=== PATIENT | male | born 1965 | race Hispanic/Latino ===

== ENCOUNTER 2018-03-17 15:48 | Observation (INO) | payer BC, SELFPAY ==
[2018-03-17] MEDS ORDERED: Mag-Al 1200 mg/1200 mg/30 ML UDCUP ONE (16:34)
[2018-03-17] MEDS ORDERED: Lidocaine Viscous Sol 2% 15 ml UD Cup ONE (16:34)
[2018-03-17 17:03] LABS: Bilirubin Negative (Negative); Blood, Urine Small (Negative); Clarity CLEAR (Clear); Glucose, Urine (Dipstick) 100 mg/dL (Negative); Leukocyte Negative (Negative); Nitrite Negative (Negative); Protein, Urine (Dipstick) 100 mg/dL (Neg-Trace); Specific Gravity, Urine 1.011 (1.002-1.036); Urobilinogen 0.2 mg/dL (0.2-1.0)
[2018-03-17 17:04] LABS: Bacteria/HPF None Seen HPF (None Seen); Hyaline Casts/LPF 0-3 HYALINE CAST LPF (0-3 Hyaline); Squamous Epithelial None Seen HPF (0-3); WBC/HPF None Seen HPF (0-3)
[2018-03-17 17:09] LABS: #Basophils 0.1 thou/uL (0.0-0.2); #Eosinphils 0.2 thou/uL (0.0-0.7); #Lymphocytes 2.1 thou/uL (1.20-3.40); #Monocytes 0.5 thou/uL (0.11-0.59); #Neutrophils 4.2 thou/uL (1.40-6.50); %Eosinophils 3.3 % (0.0-10.0); %Neutrophils 59.7 % (42.0-75.0); Hemoglobin 14.4 g/dL (14.0-18.0); Mean Corpuscular HGB CONC 34.7 g/dL (32.0-36.0); Mean Corpuscular Hemoglobin 31.3 pg (27.0-31.0); Mean Corpuscular Volume 90.3 fl (80.0-94.0); Mean Platelet Volume 7.5 fL (7.4-10.4); Platelet Count 166 thou/uL (130-400); RBC Distribution Width 12.5 % (11.5-14.5); White Blood Cell (WBC) Count 7.1 thou/uL (4.8-10.8)
[2018-03-17 17:35] LABS: ALT (SGPT) 17 U/L (8-55); AST (SGOT) 18 U/L (5-34); Albumin 3.5 g/dL (3.5-5.0); Alkaline Phosphatase 130 U/L (40-150); Anion Gap 9 mmol/L (10-20); BUN (Urea Nitrogen) 19 mg/dL (8.4-25.7); Bilirubin, Total 0.4 mg/dL (0.2-1.2); Calc. Creatinine Clearance 0 mL/min (70-130); Calcium 9.3 mg/dL (7.8-10.44); Carbon Dioxide 30 mmol/L (22-29); Chloride 104 mmol/L (98-107); Estimated GFR-MDRD 63; Globulin 3.3 g/dL (2.4-3.5); Glucose 133 mg/dL (70-105); Lipase 14 U/L (8-78); Potassium 4.3 mmol/L (3.5-5.1); Protein, Total 6.8 g/dL (6.0-8.3); Sodium 139 mmol/L (136-145)
[2018-03-17] MEDS ORDERED: Dicyclomine 20 MG TAB ONE (17:38)
[2018-03-17] MEDS ORDERED: Ondansetron ODT 4 MG TAB ONE (17:38)
[2018-03-17] MEDS ORDERED: cloNIDine 0.1 MG TAB ONE (18:01)
[2018-03-17] MEDS ORDERED: diphenhydrAMINE 50 MG/ML VIAL ONE (19:25)
[2018-03-17] MEDS ORDERED: Metoclopramide HCl 10 MG/2 ML VIAL ONE (19:25)
[2018-03-17 19:39] LABS: CKMB 1.4 ng/mL (0-6.6); Troponin I Less than 0.010 ng/mL (< 0.028)
[2018-03-17] MEDS ORDERED: Gabapentin 300 MG CAP PO SCH (20:45)
[2018-03-17] MEDS ORDERED: hydrALAZINE 20 MG/ML VIAL ONE (20:56)
[2018-03-17] MEDS ORDERED: traMADol HCl 50 MG TAB ONE (21:21)
[2018-03-17] MEDS ORDERED: Ondansetron ODT 4 MG TAB SL PRN (22:24)
[2018-03-17] MEDS ORDERED: Ondansetron HCl/PF 4 MG/2 ML Vial IVP PRN (22:24)
[2018-03-17] MEDS ORDERED: hydrALAZINE 20 MG/ML VIAL SLOW IVP PRN (22:24)
[2018-03-17] MEDS ORDERED: Acetaminophen 325 MG TAB PO PRN (22:24)
[2018-03-17 22:54] VITALS: BMI 26.6
[2018-03-18] MEDS ORDERED: Dextrose 50% Abboject 50 ML SYRINGE SLOW IVP PRN (01:16)
[2018-03-18] MEDS ORDERED: HYDROcodone/Acetaminophen 5/325 mg Tablet PO PRN (01:16)
[2018-03-18] MEDS ORDERED: Calcium Carbonate 500 MG ChewTAB PO PRN (01:16)
[2018-03-18] MEDS ORDERED: Ondansetron HCl/PF 4 MG/2 ML Vial IVP PRN (01:16)
[2018-03-18] MEDS ORDERED: Pantoprazole 40 MG VIAL IVP SCH (01:16)
[2018-03-18] MEDS ORDERED: Dextrose 5% in Water 1,000 ML IV PRN (01:16)
[2018-03-18] MEDS ORDERED: Ondansetron ODT 4 MG TAB PO PRN (01:16)
[2018-03-18] MEDS ORDERED: HumaLOG 300 UNITS/3 ML VIAL SC PRN (01:16)
[2018-03-18] MEDS ORDERED: Albuterol Sulfate 2.5 mg/0.5 ml Neb NEB PRN (01:36)
[2018-03-18] MEDS: Sodium Chloride 0.9% 1,000 ML IV SCH ×4 (02:30→22:50)
[2018-03-18 04:53] LABS: #Basophils 0.1 thou/uL (0.0-0.2); #Eosinphils 0.2 thou/uL (0.0-0.7); #Lymphocytes 2.4 thou/uL (1.20-3.40); #Monocytes 0.4 thou/uL (0.11-0.59); #Neutrophils 2.5 thou/uL (1.40-6.50); %Eosinophils 3.9 % (0.0-10.0); %Monocytes 6.5 % (0.0-10.0); %Neutrophils 44.5 % (42.0-75.0); Hemoglobin 11.8 g/dL (14.0-18.0); Mean Corpuscular HGB CONC 34.8 g/dL (32.0-36.0); Mean Corpuscular Hemoglobin 31.6 pg (27.0-31.0); Mean Corpuscular Volume 90.9 fl (80.0-94.0); Mean Platelet Volume 7.6 fL (7.4-10.4); Platelet Count 145 thou/uL (130-400); RBC Distribution Width 12.5 % (11.5-14.5); Red Blood Cell (RBC) Count 3.75 mill/uL (4.70-6.10); White Blood Cell (WBC) Count 5.6 thou/uL (4.8-10.8)
[2018-03-18 04:59] LABS: Anion Gap 9 mmol/L (10-20); BUN (Urea Nitrogen) 16 mg/dL (8.4-25.7); Calc. Creatinine Clearance 88 mL/min (70-130); Calcium 8.2 mg/dL (7.8-10.44); Carbon Dioxide 28 mmol/L (22-29); Chloride 104 mmol/L (98-107); Estimated GFR-MDRD 75; Glucose 223 mg/dL (70-105); Potassium 3.8 mmol/L (3.5-5.1); Sodium 137 mmol/L (136-145)
[2018-03-18] MEDS: Aspirin 81 mg Enteric Coated Tablet PO SCH (08:58)
[2018-03-18] MEDS: Gabapentin 300 MG CAP PO SCH (08:59)
[2018-03-18] MEDS: Pantoprazole 40 MG VIAL IVP SCH ×2 (08:59→19:47)
[2018-03-18] MEDS: Acetaminophen 325 MG TAB PO PRN ×2 (08:59→19:47)
[2018-03-18] MEDS: Diazepam 5 MG TAB PO SCH ×2 (09:03→22:50)
[2018-03-18] MEDS: HYDROcodone/Acetaminophen 5/325 mg Tablet PO PRN (12:41)
--- NOTE | 2018-03-18 16:41 | CON ---
DATE OF CONSULTATION: 03/18/2018 GI INPATIENT CONSULTATION NOTE REQUESTING PHYSICIAN: Dr. Tillman. REASON FOR CONSULTATION: Abdominal pain. HISTORY OF PRESENT ILLNESS: Kyle Flores is a very pleasant 53-year-old man who was admitted to [facility] last night with persistent epigastric pain over the past 8 days. He has previously been seen by my GI colleague, Dr. Krzysztof Ayoub back in 12/2012, he was having a lot of upper abdominal pain and underwent extensive workup. He had an EGD and a colonoscopy showing gastritis in the antrum as w ell as distal esophagitis, and a normal colonoscopy. He then had a HIDA scan which was abnormal and underwent cholecystectomy later in 2012. The patient reports that all of his pain symptoms resolved at that time for several years. Also, note he was treated for H. pylori in 2012 on the basis of a po sitive serology. He also has a prior history of what he thinks may have been kidney stones. He alverto es any NSAID use. He is not on any acid suppression. He states that over the past 8 days, he has caldwell d essentially constant epigastric pain which waxes and wanes in intensity, but often becomes quite se terry. He cannot describe any aggravating or alleviating factors. It does not seem to be related to oral intake or to bowel movements. He has continued to have normal regular bowel movements once a da y without any melena or hematochezia. There is no associated nausea or vomiting. His oral intake caldwell s been normal during this time. He does complain of increased urinary frequency during this time. Anna avendaño went to the [facility] Emergency Department in [place] at symptom onset. On 03/10/2018, and e vidently had lab and imaging workup there. Unfortunately, I do not have those results. A CT of the abdomen and pelvis was performed. The patient states that he was told that he had kidney stones. We are working on getting that report. On this presentation, his LFTs and lipase and troponin are norm al. Urinalysis shows 7-10 rbc's. He is currently having the same epigastric pain. He was put on IV PPI as well as Paoli. REVIEW OF SYSTEMS: Full review of systems including constitutional, head, eyes, ears, nose, throat, GI, , cardiovascular, respiratory, musculoskeletal, and neurologic systems is negative except as no mina in the HPI. PAST MEDICAL HISTORY: Diabetes, hypertension, hyperlipidemia, cholecystectomy on 01/2013, gout, anibal pheral vascular disease with toe amputation, Helicobacter pylori treated in 2012, restless legs syndr ome, knee surgery, history of gastritis on 12/2012, normal colonoscopy on 12/2012. ALLERGIES: No known drug allergies. OUTPATIENT MEDICATIONS: Lovastatin, lisinopril, aspirin 81 mg daily, Humulin insulin, albuterol. INPATIENT MEDICATIONS: Paoli p.r.n., gabapentin, aspirin 81 mg daily, Protonix 40 mg IV q.12 hours. FAMILY HISTORY: Negative for any known history of GI malignancy. SOCIAL HISTORY: The patient does smoke. No alcohol or drug abuse. PHYSICAL EXAMINATION: VITAL SIGNS: Temperature 97.6, blood pressure 152/76, pulse 67, 98% oxygen saturation on room air. GENERAL: A 53-year-old man lying in bed comfortably, in mild distress from epigastric pain. MENTAL: Alert and fully oriented, pleasant, conversational, can give a detailed coherent history. SKIN: No jaundice, no rash visible or palpable. EYES: No scleral icterus. Extraocular movements intact. ENT: Mucous membranes moist, no oral lesions. LYMPH: No submandibular or supraclavicular lymphadenopathy. THYROID: Nontender to palpation. HEART: Regular rate and rhythm. LUNGS: Clear to auscultation bilaterally. ABDOMEN: Bowel sounds present, soft, tender to palpation in the epigastrium, but no guarding, reboun d tenderness. EXTREMITIES: No peripheral edema. VESSELS: Radial pulses 2+ bilaterally. NEUROLOGICAL: Cranial nerves II-XII intact bilaterally. No focal deficits. LABORATORY STUDIES: Hemoglobin 11.8, WBC 5.6, platelets 145. Sodium 137, potassium 3.8, BUN 16, cre atinine 1.03, glucose 109, lipase 14, troponin negative. Total bilirubin 0.4, alkaline phosphatase 1 30, AST 18, ALT 17, albumin 3.5. Urinalysis shows 7-10 rbc's. IMAGING STUDIES: The patient evidently had a CT of the head and the CT abdomen and pelvis on 018 at [facility]isse Reyes in [place]. We are trying to get those reports. ASSESSMENT AND PLAN: Epigastric pain. I discussed with the patient a broad differential for upper a bdominal pain. Note he is status post cholecystectomy years ago with lipase and LFTs all normal and does suggest against any biliary etiology. He evidently had kidney stones seen on the CT scan in [facility] recently, but it is unclear to me whether this was an incidental finding or it was thought to be related to his pain. He does have a prior history of gastritis and H. pylori infection back in 2012 and is not on any acid suppression, so peptic ulcer disease would lead the differential. We will tr y to get the reports from his recent CT scan. We will also arrange for upper endoscopic examination tomorrow. In the meantime, continue with the IV Protonix. Thank you for the consultation. Please call back with questions or concerns.
[2018-03-18] MEDS: hydrALAZINE 20 MG/ML VIAL SLOW IVP PRN ×2 (16:46→19:48)
--- NOTE | 2018-03-18 18:52 | PDOC.PN ---
- Subjective Encounter Start Date: 03/18/18 Encounter Start Time: 18:35 Subjective: f/u for abd pain tx in ED with multiple medications and tx for HTN -: urgency. Some abd discomfort but improved. GI planning on EGD in am - Objective Resuscitation Status: Resuscitation Status FULL:Full Resuscitation MAR Reviewed: Yes Vital Signs & Weight: Vital Signs (12 hours) Temp Pulse Resp BP BP Pulse Ox 03/18/18 16:46 74 189/93 H 03/18/18 11:10 97.6 F 67 12 152/76 H 98 03/18/18 07:43 97.2 F L 65 18 137/73 98 03/18/18 07:40 97.2 F L 65 18 Weight Weight 170 lb I&O: 03/17/18 03/18/18 03/19/18 06:59 06:59 06:59 Intake Total 1196 1108 Balance 1196 1108 Result Diagrams: 03/18/18 04:21 03/18/18 04:21 Additional Labs: Accuchecks 03/18/18 03/18/18 03/17/18 16:46 10:51 22:49 POC Glucose 191 H 109 239 H Laboratory Tests 03/17/18 03/17/18 16:58 16:58 Hgb 14.4 Carbon Dioxide 30 H Creatinine 1.19 Lipase 14 EKG Reviewed by me: Yes (Tele - SR) Phys Exam - Physical Examination Constitutional: NAD HEENT: PERRLA, sclera anicteric, oral pharynx no lesions Neck: no nodes, no JVD, supple, full ROM Respiratory: no wheezing, no rales, no rhonchi, clear to auscultation bilateral S1, S2 Cardiovascular: RRR, no significant murmur, no rub, gallop Mild TTP in mid-epigastric regions Gastrointestinal: soft, no distention, positive bowel sounds Musculoskeletal: no edema, pulses present Neurological: non-focal, normal sensation, moves all 4 limbs Psychiatric: normal affect, A&O x 3 Skin: no rash, normal turgor, cap refill <2 seconds Dx/Plan (1) Abdominal pain Code(s): R10.9 - UNSPECIFIED ABDOMINAL PAIN Status: Acute Qualifiers: Abdominal location: epigastric Qualified Code(s): R10.13 - Epigastric pain Comment: Etiology unclear, suspect DM gastroparesis, plan for EGD in am, symptomatic mgmt (2) Gastroparesis due to DM Code(s): E11.43 - TYPE 2 DIABETES W DIABETIC AUTONOMIC (POLY)NEUROPATHY; K31.84 - GASTROPARESIS Status: Chronic Comment: Trial Reglan 10mg QID for d/c (3) BELKYS (acute kidney injury) Code(s): N17.9 - ACUTE KIDNEY FAILURE, UNSPECIFIED Status: Acute Comment: Mild BELKYS, improved with IVF's, avoid nephrotoxic meds and limit contrast exposure (4) CKD (chronic kidney disease), stage II Code(s): N18.2 - CHRONIC KIDNEY DISEASE, STAGE 2 (MILD) Status: Chronic (5) HTN (hypertension) Code(s): I10 - ESSENTIAL (PRIMARY) HYPERTENSION Status: Chronic Qualifiers: Hypertension type: essential hypertension Qualified Code(s): I10 - Essential (primary) hypertension Comment: Labile, continue serial monitoring, may need additional titration of regimen on outpt basis - Plan out of bed/ambulate, DVT proph w/SCDs Stable overall -: Continue IVF's -: Reglan 10mg QID for d/c -: Protonix 40mg BID -: EGD plannned for 03/19/18 * AM lab: BMP, CBC * Likely home 03/19/18 after EGD
[2018-03-18] MEDS: HumaLOG 300 UNITS/3 ML VIAL SC PRN (20:52)
[2018-03-18] MEDS ORDERED: Gabapentin 300 MG CAP PO SCH (21:00)
[2018-03-19] MEDS: Acetaminophen 325 MG TAB PO PRN (04:49)
[2018-03-19 04:58] LABS: Band 1 % (5-11); Eosinophils 1 % (0-10); Lymphocytes 37 % (21-51); MDiff Complete? YES; Mean Corpuscular HGB CONC 33.1 g/dL (32.0-36.0); Mean Corpuscular Hemoglobin 30.2 pg (27.0-31.0); Mean Corpuscular Volume 91.2 fl (80.0-94.0); Mean Platelet Volume 7.6 fL (7.4-10.4); Monocytes 5 % (0-10); Neutrophil 56 % (42-75); PLT Morphology Comment Appears Adequate; Platelet Count 147 thou/uL (130-400); RBC Distribution Width 12.4 % (11.5-14.5); Red Blood Cell (RBC) Count 3.97 mill/uL (4.70-6.10); White Blood Cell (WBC) Count 6.8 thou/uL (4.8-10.8)
[2018-03-19 05:06] LABS: Anion Gap 10 mmol/L (10-20); BUN (Urea Nitrogen) 18 mg/dL (8.4-25.7); Calc. Creatinine Clearance 91 mL/min (70-130); Calcium 7.9 mg/dL (7.8-10.44); Carbon Dioxide 26 mmol/L (22-29); Chloride 105 mmol/L (98-107); Estimated GFR-MDRD 78; Glucose 322 mg/dL (70-105); Potassium 4.6 mmol/L (3.5-5.1); Sodium 136 mmol/L (136-145)
[2018-03-19] MEDS: HYDROcodone/Acetaminophen 5/325 mg Tablet PO PRN (06:18)
[2018-03-19] MEDS: HumaLOG 300 UNITS/3 ML VIAL SC PRN (06:18)
[2018-03-19] MEDS ORDERED: Fentanyl 100 MCG/2 ML VIAL ONE (08:31)
[2018-03-19] MEDS ORDERED: Lisinopril 20 MG TAB PO SCH (09:00)
[2018-03-19] MEDS ORDERED: Ondansetron HCl/PF 4 MG/2 ML Vial IVP PRN (09:10)
[2018-03-19] MEDS ORDERED: Promethazine HCl 25 MG/ML VIAL SLOW IVP PRN (09:10)
[2018-03-19] MEDS ORDERED: Promethazine HCl 25 MG/ML VIAL IM PRN (09:10)
[2018-03-19] MEDS: Pantoprazole 40 MG VIAL IVP SCH (09:50)
[2018-03-19] MEDS: Gabapentin 300 MG CAP PO SCH (09:50)
[2018-03-19] MEDS: Aspirin 81 mg Enteric Coated Tablet PO SCH (09:51)
[2018-03-19] MEDS: Diazepam 5 MG TAB PO SCH (09:51)
--- NOTE | 2018-03-19 11:12 | OP ---
DATE OF PROCEDURE: 03/19/2018 SURGEON: Timoteo Shields M.D. PAYROLL AND BENEFITS ASSISTANT SURGEON: None. PROCEDURE PERFORMED: Esophagogastroduodenoscopy, diagnostic. INDICATION: Epigastric pain. MEDICATIONS: See anesthesia record. FINDINGS: After discussion of the risks, benefits and alternatives of the procedure, informed consen t was obtained and witnessed. Pre-endoscopic cardiopulmonary examination was satisfactory. DESCRIPTION OF PROCEDURE: Timeout was performed before sedation was achieved. Sedation was achieved with anesthesia assistance in the endoscopy unit. A Pentax adult upper endoscope was placed into th e oropharynx and passed through the cricopharyngeus under direct visualization. The esophageal mucos a appeared normal throughout. The endoscope was then advanced into the stomach. Forward and retrofl exed views of the entire gastric mucosa were obtained. There is a large amount of retained food brie er within the gastric fundus and body. This is suggestive of gastroparesis. The vast majority of th e gastric mucosa was visualized except were obscured by food material. The visualized gastric mucosa was all normal. The endoscope was passed through a widely patent pylorus. There was no evidence of any pyloric stricture or mechanical obstruction. The first and second portions of the duodenum were examined and appeared normal. The upper endoscope was completely withdrawn and the patient allowed to recover. The patient tolerated the procedure well. There were no immediate post-procedure compli cations. IMPRESSION: Retained food in the stomach, suggestive of gastroparesis. Otherwise, normal esophagoga stroduodenoscopy. RECOMMENDATIONS: 1. I would have the patient take a gastroparesis diet (smaller, more frequent meals, low fat, low fi austyn). 2. Follow up in the GI clinic with Dr. Ayoub or his Physician Juvenile Detention Officer in the next 2-3 weeks. GI will sign off. Please call back with any questions or concerns.
[2018-03-19] MEDS ORDERED: Lidocaine 1% PF 5 ML VIAL ONE (11:51)
[2018-03-19] MEDS ORDERED: PROPOFOL 200 MG/20 ML VIAL ONE (11:51)
[2018-03-19] MEDS ORDERED: Acetaminophen/Codeine 30-300mg Tablet PO PRN ×2 (11:57)
[2018-03-19] MEDS ORDERED: Gabapentin 300 MG CAP PO SCH ×3 (11:58→12:00)
--- NOTE | 2018-03-19 12:01 | PDOC.PN ---
- Subjective Encounter Start Date: 03/19/18 (f/u abd pain) Encounter Start Time: 11:59 Subjective: Pt reports pain is 6/10 - has been 8-06/12. no change with -: hydrocodone. Denies any nausea currently. - Objective Resuscitation Status: Resuscitation Status FULL:Full Resuscitation Vital Signs & Weight: Vital Signs (12 hours) Temp Pulse Resp BP BP Pulse Ox 03/19/18 09:50 192/88 H 03/19/18 08:15 98.6 F 82 16 187/90 H 99 03/19/18 03:09 98.6 F 84 18 118/66 98 Weight Weight 170 lb I&O: 03/18/18 03/19/18 03/20/18 06:59 06:59 06:59 Intake Total 1196 3381 Balance 1196 3381 Result Diagrams: 03/19/18 04:42 03/19/18 04:42 Additional Labs: Accuchecks 03/19/18 03/19/18 03/18/18 11:07 06:14 20:50 POC Glucose 162 H 314 H 266 H 03/18/18 16:46 POC Glucose 191 H EKG Reviewed by me: Yes (tele - sinus 80's) Phys Exam - Physical Examination Constitutional: NAD Respiratory: no wheezing, no rales, no rhonchi, clear to auscultation bilateral Cardiovascular: RRR, no significant murmur Gastrointestinal: soft, no distention, positive bowel sounds Musculoskeletal: no edema, pulses present Neurological: non-focal, moves all 4 limbs Psychiatric: normal affect Skin: no rash Dx/Plan (1) Abdominal pain Code(s): R10.9 - UNSPECIFIED ABDOMINAL PAIN Status: Acute Qualifiers: Abdominal location: epigastric Qualified Code(s): R10.13 - Epigastric pain (2) Gastroparesis Code(s): K31.84 - GASTROPARESIS Status: Acute (3) Dyslipidemia Code(s): E78.5 - HYPERLIPIDEMIA, UNSPECIFIED Status: Chronic (4) CKD (chronic kidney disease), stage II Code(s): N18.2 - CHRONIC KIDNEY DISEASE, STAGE 2 (MILD) Status: Chronic (5) HTN (hypertension) Code(s): I10 - ESSENTIAL (PRIMARY) HYPERTENSION Status: Chronic Qualifiers: Hypertension type: essential hypertension Qualified Code(s): I10 - Essential (primary) hypertension - Plan * Pt with EGD today with retained food - start reglan, small volumes with meals * * bp's uncontrolled - suspect it is secondary to pain - increase gabapentin and start tylenol 3. Discussed pain with patient, he desires to avoid narcotics as much as possible. Continue lisinopril * * blood sugars labile - add long-acting insulin. Pt takes long-acting insulin daily - will add this here with a dose now * * If bp improves, pain controlled, pt is a candidate for d/c to home. If not, will need to remain in hospital until both are controlled. * * dvt prophy - ambulatory * gi prophy - d/c as pt is taking PO and no ulcers on egd * code status full * * reviewed plan of care with patient, no questions or further needs at end of eval
[2018-03-19 12:09] VITALS: TEMP 98
[2018-03-19] MEDS ORDERED: Metoclopramide 10 MG/10 ML UDCUP PO SCH ×2 (12:30→17:00)
[2018-03-19] MEDS ORDERED: Insulin Glargine 15 UNITS in Pre-Filled Syringe 1 EACH SC SCH (13:00)
[2018-03-19 16:24] VITALS: BP 169/77
--- NOTE | 2018-03-20 01:13 | DIS ---
DATE OF ADMISSION: 03/17/2018 DATE OF DISCHARGE: 03/19/2018 CONSULTANTS: Dr. Shields of Gastroenterology. PROCEDURES PERFORMED: EGD performed in . MEDICATIONS: Reconciled at discharge. NEW MEDICATION: Reglan 5 mg 1 tablet p.o. with meals and at bedtime. DISCONTINUED MEDICATIONS: 1. Diazepam - pt reports he does not use this. 2. Lovastatin - duplicate statin 3. Methocarbamol - pt reports he does not use this. 4. Tramadol - pt reports he does not use this. CHANGED MEDICATIONS: 1. Gabapentin increased to 600 mg in the morning and 900 mg in the evening. New prescription provided. Insulin - pt reports only usine one of the following per day, based on if he is home or travelling. 2. Glargine Toujeo SoloSTAR decreased to 15 units once daily. If using this insulin, this will need to be adjusted by Dr. Hinton based on your blood sugars. -OR- 3. Insulin 70/30, 15 units once daily if not using the Toujeo SoloSTAR. This has been decreased, will need to be adjusted with Dr. Hinton based on blood sugars. MEDICATIONS TO CONTINUE: 1. Albuterol nebulizer every 4 hours as needed. 2. Tylenol No. 4 one tablet every 4 hours as needed for pain. Prescription provided for 20 tablets. 3. Aspirin 81 mg daily. 4. Atorvastatin 40 mg daily. 5. Lisinopril 20 mg daily. 6. Antivert 25 mg p.o. t.i.d. p.r.n. dizziness. 7. Zofran 8 mg every 8 hours as needed for nausea, vomiting. 8. Pantoprazole 40 mg daily. 9. Metformin 1000 mg b.i.d. with meals. FOLLOWUP: 1. Follow up is with Dr. Hinton within 1 week to review abdominal pain/current symptoms, adjust insulin levels, and assess for any other needs. Patient need to repeat urinalysis, as there was microscopic hematuria. 2. Follow up with Dr. Ayoub at [facility] in 2-3 weeks. FINAL DIAGNOSES: 1. Abdominal pain secondary to gastroparesis. 2. Diabetes mellitus type 2. 3. Hypertension. 4. Dyslipidemia. 5. Chronic kidney disease stage 2. 6. Microscopic hematuria - will need a repeat urine test after discharge with Dr. Hinton. HISTORY OF PRESENT ILLNESS: Mr. Flores is a 53-year-old male with the above medical problems who presented to the hospital with the complaint of epigastric pain. There was no associated nausea or vomiting. He was seen at an outside emergency room previously and discharged to home. He returned with increasing abdominal pain and was placed in observation status at this hospital for further evaluation. HOSPITAL COURSE: The patient was started on pain management and IV fluid hydration, was evaluated by Gastroenterology yesterday and underwent EGD today. The EGD showed retained food in the stomach consistent with gastroparesis. Otherwise, the EGD was normal. His pain post-EGD is improved, and his pain medications have been adjusted to increase the gabapentin twice daily, and to use Tylenol No. 4 as needed. He has also been given education on a gastroparesis diet which is smaller more frequent meals that are carbohydrate consistent, and recommended to follow up with Dr. Ayoub in the [facility] in 2-3 weeks. The patient is tolerating a liquid diet post-procedure, and does desire to go home. He reports his pain now is tolerable and rates it about a 5-6/10. He desires to minimize the amount of narcotics and therefore will be on Tylenol No. 4, which has worked him for other purposes in the past. The patient is to follow up with his primary care provider with regard to with this hospitalization as well as to his insulin. In addition, there is an incidental finding of microscopic hematuria on UA which warrants outpatient follow up. Due to the change in his diet to gastroparesis friendly diet, his insulin level has been reduced. He reports taking either the Toujeo once daily or the insulin 70/30 once daily and it depends on if he is traveling or at home. He will reduce the dose to 15 units and adjust from there with the goal of avoiding hypoglycemia. He will continue his other usual medications as outlined above. DIET: Gastroparesis friendly with small amounts that are more frequent and carbohydrate consistent as well as low sodium. PHYSICAL EXAMINATION: VITAL SIGNS: On day of discharge, vital signs 169/77, pulse 78, respirations 16 , saturation 99% on room air, temperature 98. GENERAL: Awake, alert, responsive, in no apparent distress, able to speak in full sentences. LUNGS: Clear to auscultation bilateral. No audible wheezing, rhonchi or rales. HEART: Normal S1, S2, regular rate and rhythm, no audible murmurs. ABDOMEN: Soft with present bowel sounds. EXTREMITIES: No edema, clubbing or cyanosis. DONALDSON FINDINGS AND TEST RESULTS: 1. CBC: 6.8, 12, 36.2, 147. 2. Renal panel: 136, 4.6, 105, 26, 18, 1.0, 322, please note the last blood sugar today 162. 3. Urinalysis shows present protein, glucose, 7-10 red blood cells. Code status: Full Reviewed this hospitalization, the return for care precautions, the importance of following a gastroparesis diet with the patient. There were no questions or further needs at end of evaluation. Total time coordinating discharge is 30 minutes. MTDD
[2018-03-20] MEDS ORDERED: Insulin Glargine 15 UNITS in Pre-Filled Syringe 1 EACH SC SCH (09:00)
== END 2018-03-19 17:23 | disposition home or self-care (01) ==
LOC: ERS 15:48 → 2SW 22:17
PROVIDERS: ADMIT Internal Medicine Infectious Disease; ATTEND Internal Medicine
PROC: 0DJ08ZZ Inspection of Upper Intestinal Tract, Via Natural or Artificial Opening Endoscopic (ICD-10-PCS; principal; 2018-03-19)
DX: E11.43 Type 2 diabetes mellitus with diabetic autonomic (poly)neuropathy (principal); K31.84 Gastroparesis; E11.22 Type 2 diabetes mellitus with diabetic chronic kidney disease; I12.9 Hypertensive chronic kidney disease with stage 1 through stage 4 chronic kidney disease, or unspecified chronic kidney disease; N18.2 Chronic kidney disease, stage 2 (mild); R31.29 Other microscopic hematuria; E78.5 Hyperlipidemia, unspecified; N17.9 Acute kidney failure, unspecified; Z79.84 Long term (current) use of oral hypoglycemic drugs; Z79.82 Long term (current) use of aspirin; Z79.899 Other long term (current) drug therapy
CPT/HCPCS: 36415; 36416; 80048; 80053; 81003; 81015; 82553; 83690; 84484; 85007; 85025; 85027; 93005; 96361; 96365; 96375; 96376; A4216; C9113; G0378; J0360; J1200; J2001; J2704; J2765; J3010; Q0162

== ENCOUNTER 2018-03-22 15:01 | Emergency (ER) | payer BC ==
[2018-03-22] MEDS ORDERED: Metoclopramide HCl 10 MG/2 ML VIAL ONE (15:52)
[2018-03-22] MEDS ORDERED: Ondansetron ODT 4 MG TAB ONE (15:52)
[2018-03-22 16:07] LABS: #Eosinphils 0.2 thou/uL (0.0-0.7); #Lymphocytes 1.5 thou/uL (1.20-3.40); #Monocytes 0.5 thou/uL (0.11-0.59); #Neutrophils 4.7 thou/uL (1.40-6.50); %Basophils 0.4 % (0.0-1.0); %Eosinophils 2.5 % (0.0-10.0); %Lymphocytes 21.5 % (21.0-51.0); %Monocytes 7.1 % (0.0-10.0); %Neutrophils 68.4 % (42.0-75.0); Hemoglobin 13.5 g/dL (14.0-18.0); Mean Corpuscular HGB CONC 34.5 g/dL (32.0-36.0); Mean Corpuscular Hemoglobin 31.7 pg (27.0-31.0); Mean Corpuscular Volume 91.8 fL (78.0-98.0); Mean Platelet Volume 7.8 fL (7.4-10.4); Platelet Count 166 thou/uL (130-400); RBC Distribution Width 12.4 % (11.5-14.5); Red Blood Cell (RBC) Count 4.25 mill/uL (4.70-6.10); White Blood Cell (WBC) Count 6.9 thou/uL (4.8-10.8)
[2018-03-22 16:26] LABS: ALT (SGPT) 21 U/L (8-55); AST (SGOT) 17 U/L (5-34); Albumin 3.3 g/dL (3.5-5.0); Alkaline Phosphatase 132 U/L (40-150); Anion Gap 11 mmol/L (10-20); BUN (Urea Nitrogen) 18 mg/dL (8.4-25.7); Bilirubin, Total 0.3 mg/dL (0.2-1.2); Calc. Creatinine Clearance 0 mL/min (70-130); Calcium 8.8 mg/dL (7.8-10.44); Carbon Dioxide 26 mmol/L (22-29); Chloride 104 mmol/L (98-107); Estimated GFR-MDRD 83; Globulin 3.1 g/dL (2.4-3.5); Glucose 264 mg/dL (70-105); Lipase 22 U/L (8-78); Protein, Total 6.4 g/dL (6.0-8.3); Sodium 136 mmol/L (136-145)
[2018-03-22 16:45] LABS: Bilirubin Negative (Negative); Blood, Urine Moderate (Negative); Clarity CLEAR (Clear); Glucose, Urine (Dipstick) >=1000 mg/dL (Negative); Leukocyte Negative (Negative); Nitrite Negative (Negative); Protein, Urine (Dipstick) 300 mg/dL (Neg-Trace); Urobilinogen 0.2 mg/dL (0.2-1.0)
[2018-03-22 16:48] LABS: Bacteria/HPF None Seen HPF (None Seen); Hyaline Casts/LPF 0-3 HYALINE CAST LPF (0-3 Hyaline); Squamous Epithelial None Seen HPF (0-3); WBC/HPF None Seen HPF (0-3)
[2018-03-22] MEDS ORDERED: HYDROcodone/Acetaminophen 10/325 mg Tablet ONE (17:57)
== END 2018-03-22 23:44 | disposition home or self-care (01) ==
LOC: ERS 15:01
DX: E11.43 Type 2 diabetes mellitus with diabetic autonomic (poly)neuropathy (principal); K31.84 Gastroparesis; I10 Essential (primary) hypertension; F17.210 Nicotine dependence, cigarettes, uncomplicated; G25.81 Restless legs syndrome; Z79.4 Long term (current) use of insulin
CPT/HCPCS: 36415; 80053; 81003; 81015; 82274; 83690; 85025; 86850; 86900; 86901; 96365; 96366; 96372; J2765; Q0162

== ENCOUNTER 2018-04-29 13:10 | Emergency (ER) | payer BC, SELFPAY ==
[2018-04-29 13:58] LABS: Bilirubin Small (Negative); Blood, Urine Negative (Negative); Clarity CLOUDY (Clear); Glucose, Urine (Dipstick) Negative (Negative); Leukocyte Negative (Negative); Nitrite Negative (Negative); Protein, Urine (Dipstick) 100 mg/dL (Neg-Trace); Specific Gravity, Urine 1.022 (1.002-1.036)
[2018-04-29 14:04] LABS: Bacteria/HPF None Seen HPF (None Seen)
[2018-04-29 14:10] LABS: #Basophils 0.1 thou/uL (0.0-0.2); #Eosinphils 0.1 thou/uL (0.0-0.7); #Lymphocytes 1.6 thou/uL (1.20-3.40); #Monocytes 0.4 thou/uL (0.11-0.59); #Neutrophils 5.9 thou/uL (1.40-6.50); %Basophils 0.8 % (0.0-1.0); %Lymphocytes 19.7 % (21.0-51.0); %Monocytes 5.4 % (0.0-10.0); %Neutrophils 73.1 % (42.0-75.0); Hemoglobin 13.7 g/dL (14.0-18.0); Mean Corpuscular HGB CONC 35.2 g/dL (32.0-36.0); Mean Corpuscular Hemoglobin 31.8 pg (27.0-31.0); Mean Corpuscular Volume 90.4 fL (78.0-98.0); Mean Platelet Volume 6.9 fL (7.4-10.4); Platelet Count 246 thou/uL (130-400); RBC Distribution Width 12.6 % (11.5-14.5)
[2018-04-29 14:24] LABS: Pathc Cast-AUWi Flag 5.81 (0-2.49)
[2018-04-29 14:39] LABS: Hyaline Casts/LPF 7-10 HYALINE CAST LPF (0-3 Hyaline); Other Casts/LPF 0-3 COARSE GRAN LPF (0-3 Hyaline)
[2018-04-29 14:39] LABS: ALT (SGPT) 17 U/L (8-55); AST (SGOT) 22 U/L (5-34); Albumin 3.7 g/dL (3.5-5.0); Alkaline Phosphatase 96 U/L (40-150); Anion Gap 16 mmol/L (10-20); BUN (Urea Nitrogen) 42 mg/dL (8.4-25.7); Bilirubin, Total 0.4 mg/dL (0.2-1.2); Calc. Creatinine Clearance 0 mL/min (70-130); Calcium 9.8 mg/dL (7.8-10.44); Carbon Dioxide 23 mmol/L (22-29); Chloride 102 mmol/L (98-107); Estimated GFR-MDRD 40; Globulin 3.5 g/dL (2.4-3.5); Glucose 175 mg/dL (70-105); Lipase 92 U/L (8-78); Potassium 4.7 mmol/L (3.5-5.1); Protein, Total 7.2 g/dL (6.0-8.3); Sodium 136 mmol/L (136-145)
[2018-04-29 14:40] LABS: Crystals/HPF 1+ AMORPH URATES HPF (Negative)
[2018-04-29] MEDS ORDERED: Metoclopramide HCl 10 MG/2 ML VIAL ONE (15:24)
[2018-04-29] MEDS ORDERED: Pantoprazole 40 MG VIAL ONE (15:24)
[2018-04-29] MEDS ORDERED: Ondansetron HCl/PF 4 MG/2 ML Vial ONE (15:24)
[2018-04-29] MEDS ORDERED: Morphine 10 MG/ML VIAL ONE (15:24)
[2018-04-29] MEDS ORDERED: diphenhydrAMINE 50 MG/ML VIAL ONE (15:24)
[2018-04-29] MEDS ORDERED: Ondansetron ODT 4 MG TAB ONE (15:51)
== END 2018-04-29 17:09 | disposition home or self-care (01) ==
LOC: ERS 13:10
DX: E11.43 Type 2 diabetes mellitus with diabetic autonomic (poly)neuropathy (principal); K31.84 Gastroparesis; F17.210 Nicotine dependence, cigarettes, uncomplicated; Z79.899 Other long term (current) drug therapy; Z87.442 Personal history of urinary calculi; Z79.4 Long term (current) use of insulin; Z79.82 Long term (current) use of aspirin
CPT/HCPCS: 36415; 80053; 81003; 81015; 83690; 85025; 93005; 96365; 96375; C9113; J1200; J2270; J2405; J2765; Q0162

== ENCOUNTER 2019-06-15 11:53 | Inpatient (IN) | payer BC ==
[2019-06-15 12:11] LABS: #Eosinphils 0.1 thou/uL (0.0-0.7); #Lymphocytes 1.5 thou/uL (1.20-3.40); #Monocytes 0.8 thou/uL (0.11-0.59); #Neutrophils 8.7 thou/uL (1.40-6.50); %Basophils 0.4 % (0.0-1.0); %Eosinophils 0.6 % (0.0-10.0); %Lymphocytes 13.2 % (21.0-51.0); %Neutrophils 78.8 % (42.0-75.0); Hemoglobin 13.1 g/dL (14.0-18.0); Mean Corpuscular HGB CONC 33.4 g/dL (32.0-36.0); Mean Corpuscular Hemoglobin 30.3 pg (27.0-31.0); Mean Corpuscular Volume 90.7 fL (78.0-98.0); Mean Platelet Volume 7.6 fL (7.4-10.4); Platelet Count 233 thou/uL (130-400); RBC Distribution Width 12.1 % (11.5-14.5); Red Blood Cell (RBC) Count 4.32 mill/uL (4.70-6.10)
--- NOTE | 2019-06-15 12:29 | RAD ---
Radiograph right foot 3 views: HISTORY: 54-year-old male with diabetic foot ulcer COMPARISON: None FINDINGS: There is osteopenia at the proximal metadiaphysis of the of fifth proximal phalanx and at the medial aspect of the fifth metatarsal. Just lateral to the fifth MTP, there is a superficial soft tissue defect. Joint spaces are maintained. No high-grade osteophytosis. No fracture or dislocation. Diffuse soft tissue edema. Atherosclerotic calcification of branches of dorsalis pedis artery and posterior tibial artery. IMPRESSION: 1. Soft tissue ulcer lateral to the fifth metatarsophalangeal joint. 2. Focal osteopenia at proximal aspect of fifth proximal phalanx. This is nonspecific, but the proxim ity to the soft tissue wound raises the possibility of osteomyelitis.
[2019-06-15 12:37] LABS: ALT (SGPT) 12 U/L (8-55); AST (SGOT) 12 U/L (5-34); Albumin 3.1 g/dL (3.5-5.0); Alkaline Phosphatase 169 U/L (40-150); Anion Gap 11 mmol/L (10-20); BUN (Urea Nitrogen) 28 mg/dL (8.4-25.7); Bilirubin, Total 0.4 mg/dL (0.2-1.2); Calc. Creatinine Clearance 0 mL/min (70-130); Calcium 9.1 mg/dL (7.8-10.44); Carbon Dioxide 27 mmol/L (22-29); Chloride 94 mmol/L (98-107); Estimated GFR-MDRD 46; Globulin 3.7 g/dL (2.4-3.5); Protein, Total 6.8 g/dL (6.0-8.3); Sodium 127 mmol/L (136-145)
[2019-06-15 12:42] LABS: Glucose 590 mg/dL (70-105)
[2019-06-15] MEDS ORDERED: Morphine 4 MG/ML VIAL ONE (12:47)
--- NOTE | 2019-06-15 13:34 | ULT ---
RIGHT LOWER EXTREMITY VENOUS ULTRASOUND WITH DOPPLER: HISTORY: Intermittent pain. COMPARISON: None. TECHNIQUE: Utilizing a MultiHertz transducer, sonographic imaging of the right lower extremity is performed with grayscale, color flow, Doppler imaging and spectral wave form analysis. FINDINGS: Enlarged right inguinal lymph node with preserved hilum measuring 3 cm in maximum dimension. There is compressibility, presence of flow and augmentation in the common femoral vein. The mid and d istal femoral vein have only partial to no compressibility. The popliteal vein does compress. There is flow in the profunda femoral vein, greater saphenous vein. There is partial compression of the pos terior tibial vein. 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 Results of study were given to the patient's nurse Lidia by the reinsurance claims analyst 06/15/2019 at 1:33 PM Code CR Transcribed Date/Time: 06/15/2019 2:59 PM
[2019-06-15 16:23] LABS: PTT 34.7 SEC (22.9-36.1); Prothrombin Time 13.5 SEC (12.0-14.7)
[2019-06-15] MEDS ORDERED: Dextrose 5% in Water 1,000 ML IV PRN (17:05)
[2019-06-15] MEDS ORDERED: Enoxaparin Sodium 80 MG/0.8 ML SYRINGE ONE (17:05)
[2019-06-15] MEDS ORDERED: Dextrose 50% Abboject 50 ML SYRINGE SLOW IVP PRN (17:05)
[2019-06-15] MEDS ORDERED: Labetalol HCl 100 MG/20 ML VIAL SLOW IVP PRN (17:08)
[2019-06-15] MEDS ORDERED: Insulin Regular 300 UNITS/3 ML VIAL SC SCH (17:45)
--- NOTE | 2019-06-15 18:26 | MRI ---
MRI OF RIGHT FOOT PERFORMED WITHOUT CONTRAST ENHANEMENT: 06/15/19 HISTORY: Patient with a diabetic ulcer along the lateral aspect of the foot with foot pain. Patient has been o n Clindamycin x10 days with no relieve. There is diffuse abnormal signal change with increased signal change on the STIR sequences involving the entire distal phalanx of the great toe. These changes are highly suspicious for osteomyelitis. Th e proximal phalanx does not appear involved. There are arthritic changes of the first metatarsophalan geal joint. In addition, there is an ulcer along the lateral aspect of the foot. This is near the level of the fi fth metatarsal head and is associated with abnormal increased signal change both within the head of t he fifth metatarsal as well as the proximal phalanx. There also appears to be some increased signal c hange within the middle phalanx and distal phalanx. There are arthritic changes of the base of the metatarsals. There is no signs of any soft tissue absc ess. IMPRESSION: 1. Findings very suspicious for osteomyelitis involving the little toe and head of the fifth met atarsal. 2. In addition, there is diffuse abnormal increased signal change within the distal phalanx of t he great toe also very suspicious for underlying osteomyelitis. POS: ZANDER
[2019-06-15] MEDS: hydrALAZINE 20 MG/ML VIAL SLOW IVP PRN (18:29)
[2019-06-15] MEDS: HYDROcodone/Acetaminophen 5/325 mg Tablet PO PRN ×2 (18:29→23:20)
[2019-06-15 18:43] VITALS: BMI 26.9
[2019-06-15] MEDS: Famotidine 20 MG TAB PO SCH (19:53)
[2019-06-15] MEDS: Piperacillin/Tazobactam 3.375 GM in Sodium Chloride 0.9% 100 ML IVPB SCH (19:53)
[2019-06-15] MEDS: Nicotine 14 MG PATCH TD SCH (19:54)
[2019-06-15] MEDS: Vancomycin HCl 1.5 GM in Sodium Chloride 0.9% 250 ML 300 ML IVPB SCH (20:55)
[2019-06-15] MEDS ORDERED: Enoxaparin Sodium 80 MG/0.8 ML SYRINGE SC SCH (21:00)
[2019-06-15] MEDS: HumaLOG 300 UNITS/3 ML VIAL SC PRN (21:03)
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
[2019-06-16] MEDS: Sodium Chloride 0.9% 1,000 ML IV SCH ×3 (00:06→14:16)
[2019-06-16] MEDS ORDERED: Gabapentin 300 MG CAP PO SCH ×2 (00:45→21:45)
[2019-06-16] MEDS: Piperacillin/Tazobactam 3.375 GM in Sodium Chloride 0.9% 100 ML IVPB SCH ×4 (01:06→20:25)
[2019-06-16 05:08] LABS: Anion Gap 10 mmol/L (10-20); BUN (Urea Nitrogen) 22 mg/dL (8.4-25.7); Calc. Creatinine Clearance 84 mL/min (70-130); Calcium 8.3 mg/dL (7.8-10.44); Carbon Dioxide 23 mmol/L (22-29); Chloride 103 mmol/L (98-107); Estimated GFR-MDRD 71; Glucose 165 mg/dL (70-105); Potassium 4.1 mmol/L (3.5-5.1); Sodium 132 mmol/L (136-145)
[2019-06-16 06:03] LABS: Band 5 % (5-11); Eosinophils 2 % (0-10); Hemoglobin 12.3 g/dL (14.0-18.0); Lymphocytes 24 % (21-51); MDiff Complete? YES; Mean Corpuscular HGB CONC 34.6 g/dL (32.0-36.0); Mean Corpuscular Hemoglobin 31.2 pg (27.0-31.0); Mean Platelet Volume 7.7 fL (7.4-10.4); Monocytes 5 % (0-10); Neutrophil 62 % (42-75); Platelet Count 214 thou/uL (130-400); Platelet Morphology Comment Appears Adequate; Reactive Lymphocytes 2 % (0-10); Red Blood Cell (RBC) Count 3.94 mill/uL (4.70-6.10); White Blood Cell (WBC) Count 8.2 thou/uL (4.8-10.8)
[2019-06-16] MEDS: HumaLOG 300 UNITS/3 ML VIAL SC PRN ×4 (06:24→21:46)
[2019-06-16] MEDS ORDERED: Vancomycin HCl 1 GM in Premix Bag 1 BAG IVPB SCH (09:00)
[2019-06-16] MEDS: Famotidine 20 MG TAB PO SCH ×2 (09:15→20:25)
[2019-06-16] MEDS: Aspirin 81 mg Enteric Coated Tablet PO SCH (09:15)
[2019-06-16] MEDS: Gabapentin 300 MG CAP PO SCH ×3 (09:15→20:24)
[2019-06-16] MEDS: Lisinopril 20 MG TAB PO SCH (09:15)
[2019-06-16] MEDS: Enoxaparin Sodium 80 MG/0.8 ML SYRINGE SC SCH ×2 (09:33→20:25)
--- NOTE | 2019-06-16 09:49 | ULT ---
RIGHT LOWER EXTREMITY ARTERIOVASCULAR DUPLEX ULTRASOUND INCLUDING COLOR AND SPECTRAL DOPPLER IMAGING: Date: 06/16/19 HISTORY: Right lower extremity nonhealing ulcer and osteomyelitis. TECHNIQUE: Exam performed from groin to ankle including visualized common femoral artery, superficial femoral ar gerri, profunda femoral artery, popliteal artery, anterior tibial artery, posterior tibial artery, and dorsalis pedis arteries. FINDINGS: There is some minimally increased velocity in the right common femoral artery at 187 cm/second, as we ll as the proximal superficial femoral artery at 175 cm/second. Triphasic flow noted involving the co mmon femoral artery, superficial femoral artery, and popliteal artery, with monophasic flow noted bel ow the level of the popliteal artery. IMPRESSION: Several areas of increased velocity, including the right common femoral artery and proximal superfici al femoral artery, with monophasic flow below the level of the knee, evidence for mild to moderate ar teriovascular disease of the right lower extremity. POS: OTILIA
--- NOTE | 2019-06-16 10:08 | PRG ---
DATE OF SERVICE: 06/16/2019 SUBJECTIVE: The patient is seen and examined at bedside. He complains about the pain in his right foot, which is somewhat better than what it was yesterday, but it is still rated at 7 on a scale from 1 to 10. Also, he has some nausea this morning. OBJECTIVE: VITAL SIGNS: Blood pressure is 176/91, pulse is 86, temperature is 97.9, maximal temperature is 99, respiratory rate is 18, and O2 saturation 97% on room air. HEENT: His head is atraumatic and normocephalic. Eyes are PERRLA. Sclerae are nonicteric. Oral mucosa is moist. NECK: Supple. LUNGS: Clear. HEART: S1 and S2 normal. No S3. No S4. No any murmur. ABDOMEN: Soft, nontender. Bowel sounds are present. No organomegaly. EXTREMITIES: Right foot, lateral and inferior aspect distal part shows diabetic ulcer, which looks deep to me. He does not have any smell suggestive of some infection. NEUROLOGICAL: He follows my commands. He moves his all 4 extremities. There are no any motor deficits. LABORATORY DATA: White count of 8.2, hemoglobin 12.3, hematocrit 35.4, platelet count is 214. Sodium of 132, potassium 4.1, chloride 103, CO2 of 23, BUN 22, creatinine 1.08, glucose is down to 165, and glycemia is ranging from 197 to 590. Calcium is 8.3. DIAGNOSTIC DATA: MRI of the lower extremity showed, 1. Findings very suspicious for osteomyelitis involving the little toe and head of the fifth metatarsal. 2. Finding suspicious for distal phalanx of the great toe, osteomyelitis. Arterial Doppler of the lower extremities is still pending. IMPRESSION: 1. Diabetic foot ulcer, nonhealing with evidence of osteomyelitis on the recent MRI. Podiatry consultation is in placed. We will continue IV vancomycin and Zosyn. Continue follow up cultures. 2. Deep venous thrombosis of the right lower extremity based on Doppler studies. This involves femoral vein, mid and distal as well as posterior tibial vein. The patient is on full dose of Lovenox. Later, he will be switched to oral anticoagulant. 3. Uncontrolled type 2 diabetes mellitus. 4. [id number] stage 2/3 kidney disease, improved. 5. Diabetic neuropathy. 6. Tobacco abuse. 7. Hypertension. 8. Peripheral vascular disease, and arterial Doppler is still pending. PLAN: Continue IV antibiotics, vancomycin and Zosyn. He is going to be seen by management associate today who will make decision most likely about amputation of the area which is showing osteomyelitis. We will continue his anticoagulation with full dose of Lovenox. We will continue Accu-Cheks and coverage with sliding scale. We will continue pain management with opioids and gabapentin. We will continue Nicoderm patch. Job ID: [id number]
[2019-06-16] MEDS: HYDROcodone/Acetaminophen 5/325 mg Tablet PO PRN ×2 (12:10→20:54)
[2019-06-16] MEDS: Atorvastatin Calcium 40 MG TAB PO SCH (20:25)
[2019-06-16] MEDS: Nicotine 14 MG PATCH TD SCH (20:26)
[2019-06-16] MEDS: Vancomycin HCl 1.5 GM in Sodium Chloride 0.9% 250 ML 300 ML IVPB SCH (21:34)
[2019-06-17] MEDS: HYDROcodone/Acetaminophen 5/325 mg Tablet PO PRN ×5 (01:16→19:49)
[2019-06-17] MEDS: Piperacillin/Tazobactam 3.375 GM in Sodium Chloride 0.9% 100 ML IVPB SCH ×4 (01:18→20:29)
[2019-06-17] MEDS: HumaLOG 300 UNITS/3 ML VIAL SC PRN ×3 (05:38→20:41)
[2019-06-17] MEDS: Sodium Chloride 0.9% 1,000 ML IV SCH ×2 (06:06→15:45)
[2019-06-17] MEDS: Lisinopril 20 MG TAB PO SCH (07:48)
[2019-06-17] MEDS: Famotidine 20 MG TAB PO SCH ×2 (07:48→20:27)
[2019-06-17] MEDS: Aspirin 81 mg Enteric Coated Tablet PO SCH (07:48)
[2019-06-17] MEDS: Gabapentin 300 MG CAP PO SCH ×3 (07:48→20:28)
[2019-06-17] MEDS: Enoxaparin Sodium 80 MG/0.8 ML SYRINGE SC SCH ×2 (07:49→20:28)
--- NOTE | 2019-06-17 09:52 | PRG ---
DATE OF SERVICE: 06/17/2019 SUBJECTIVE: The patient is seen and examined at bedside. He has severe pain in his right foot as we speak. He just asked the nurse to get his pain medications. Otherwise, he is feeling okay. He does not have any other complaints. OBJECTIVE: VITAL SIGNS: Blood pressure is 170/83, pulse is 81, temperature is 98.3, respiratory rate is 14, O2 saturation is 95% on room air. HEENT: His head is atraumatic and normocephalic. Eyes are PERRLA. Sclerae are nonicteric. Oral mucosa is moist. NECK: Supple. LUNGS: Clear. HEART: S1 and S2 normal. ABDOMEN: Soft, nontender. Bowel sounds are present. No organomegaly. EXTREMITIES: No clubbing, cyanosis, or edema. NEUROLOGICAL: He is alert and oriented x4. There are no any motor deficits. LABORATORY DATA: None today. Microbiology, blood cultures x2, no growth. IMPRESSION: 1. Diabetic foot ulcer, nonhealing with evidence of osteomyelitis on the recent MRI. Processing Technologist is consulted. The patient will be seen tomorrow morning. We will continue his IV vancomycin and Zosyn. 2. Deep venous thrombosis of the right lower extremity based on Doppler studies, on full dose of Lovenox, to be switched later to oral anticoagulant. 3. Uncontrolled type 2 diabetes mellitus. 4. Zjvao-[id number] stage 2/3 kidney disease, improved. 5. Diabetic neuropathy. 6. Tobacco abuse. 7. Hypertension. 8. Peripheral vascular disease based on arterial Doppler status. PLAN: Continue IV antibiotics with vancomycin and Zosyn. Awaiting for Podiatry consultation and possible debridement of the ulcer. Continue full dose of Lovenox for a DVT of the lower extremity. Continue opioids and gabapentin for pain management. Continue Nicoderm patch and Accu-Cheks before meals and at bedtime and coverage. Job ID: [id number]
[2019-06-17] MEDS: NPH, Human Insulin Isophane 300 UNIT/3 ML VIAL SC SCH (12:13)
[2019-06-17 19:27] LABS: Vancomycin, Trough 8.8 ug/mL
[2019-06-17] MEDS: hydrALAZINE 20 MG/ML VIAL SLOW IVP PRN (19:50)
[2019-06-17] MEDS: Atorvastatin Calcium 40 MG TAB PO SCH (20:28)
[2019-06-17] MEDS: Nicotine 14 MG PATCH TD SCH (20:29)
[2019-06-17] MEDS: Vancomycin HCl 1.5 GM in Sodium Chloride 0.9% 250 ML 300 ML IVPB SCH (21:26)
[2019-06-18] MEDS: HYDROcodone/Acetaminophen 5/325 mg Tablet PO PRN ×4 (00:04→17:18)
[2019-06-18] MEDS: Piperacillin/Tazobactam 3.375 GM in Sodium Chloride 0.9% 100 ML IVPB SCH ×4 (02:35→20:22)
[2019-06-18] MEDS: HumaLOG 300 UNITS/3 ML VIAL SC PRN ×4 (06:04→21:31)
[2019-06-18 06:10] LABS: Hemoglobin 12.4 g/dL (14.0-18.0); Platelet Count 226 thou/uL (130-400)
[2019-06-18] MEDS: Ondansetron PF 4 MG/2 ML Vial IVP PRN (06:50)
[2019-06-18] MEDS: Gabapentin 300 MG CAP PO SCH ×3 (09:00→20:23)
[2019-06-18] MEDS: Senokot S 8.6-50 MG TAB PO SCH ×2 (09:02→20:25)
[2019-06-18] MEDS: Aspirin 81 mg Enteric Coated Tablet PO SCH (09:02)
[2019-06-18] MEDS: Famotidine 20 MG TAB PO SCH ×2 (09:03→20:23)
[2019-06-18] MEDS: Lisinopril 20 MG TAB PO SCH (09:03)
[2019-06-18] MEDS: Enoxaparin Sodium 80 MG/0.8 ML SYRINGE SC SCH ×2 (09:04→20:23)
--- NOTE | 2019-06-18 09:17 | PRG ---
DATE OF SERVICE: 06/18/2019 SUBJECTIVE: The patient is seen and examined at the bedside. He is complaining about pain on and off. Otherwise, he does not have any other complaints. His appetite is fair. OBJECTIVE: VITAL SIGNS: Blood pressure is 172/83, pulse is 85, temperature is 98.3, respiratory rate is 18, and O2 saturation is 98% on room air. HEENT: His head is atraumatic and normocephalic. Eyes are PERRLA. Sclerae are nonicteric. Oral mucosa is moist. NECK: Supple. LUNGS: Clear. HEART: S1 and S2 normal. ABDOMEN: Soft and nontender. Bowel sounds are present. EXTREMITIES: Right foot diabetic ulcer. No changed as before. NEUROLOGICAL: He is alert and oriented x4. There is no any motor or sensory deficits. LABORATORY DATA: Labs showed hemoglobin of 12.4, hematocrit 36.3, and platelet count 226. Creatinine 1.14, glucose is ranging from 169 to 307. Vancomycin trough was 8.8 yesterday. Microbiology, blood cultures x2, 48 hours negative. IMPRESSION: 1. Diabetic ulcer of the right foot nonhealing with evidence of osteomyelitis on the recent MRI. We are waiting for community service organization director to evaluate the patient. We will continue his IV vancomycin and Zosyn. 2. Deep vein thrombosis in the right lower extremity based on Doppler studies on full dose of Lovenox, to be switched to oral anticoagulant later. 3. Uncontrolled type 2 diabetes mellitus. The patient is placed on his home regimen and his glycemia is improving. 4. Acute on chronic stage 2/3 kidney disease, improved. 5. Diabetic neuropathy. 6. Tobacco abuse. 7. Hypertension, still uncontrolled, but mostly related to the pain. The patient is on lisinopril at this point. 8. Peripheral vascular disease based on arterial Doppler studies. PLAN: As mentioned above. Continue both antibiotics. Podiatry to evaluate the patient. Continue full dose of Lovenox for DVT in the lower extremity. Continue opioids and gabapentin for pain management. Job ID: [id number]
[2019-06-18] MEDS: Vancomycin HCl 1.5 GM in Sodium Chloride 0.9% 250 ML 300 ML IVPB SCH ×2 (10:01→20:22)
[2019-06-18] MEDS: NPH, Human Insulin Isophane 300 UNIT/3 ML VIAL SC SCH (10:02)
[2019-06-18] MEDS ORDERED: Fentanyl 100 MCG/2 ML VIAL ONE (11:56)
[2019-06-18] MEDS: hydrALAZINE 20 MG/ML VIAL SLOW IVP PRN (12:22)
[2019-06-18] MEDS ORDERED: Communication Order-Pharmacy FS SCH (15:00)
--- NOTE | 2019-06-18 15:33 | CON ---
DATE OF CONSULTATION: REASON FOR CONSULTATION: Nonhealing ulcer. Dr. Heraclio Sultana is the primary provider. HISTORY OF PRESENT ILLNESS: Mr. Flores is a very pleasant 54-year-old gentleman with history of diabetes mellitus and tobacco abuse. He recently presented with a nonhealing ulcer to the right toe. It has been noted over the last month. Per Dr. Sultana, he appears to have osteomyelitis of the toe. The patient has undergone amputation of the same toe on the left leg in the past. He denies chest pain, pressure, or associated symptoms. ALLERGIES: NONE. HOME MEDICATIONS: Include; 1. Lisinopril. 2. Metformin. 3. Gabapentin. 4. Aspirin. PAST MEDICAL HISTORY: As above including nephrolithiasis, hypertension, restless legs syndrome, hyperlipidemia, and chronic kidney disease. PAST SURGICAL HISTORY: As above including cholecystectomy, knee surgery, and rotator cuff repair. SOCIAL HISTORY: Positive alcohol use. Positive tobacco use. REVIEW OF SYSTEMS: A 10-point review of systems is reviewed as above, otherwise negative. PHYSICAL EXAMINATION: VITAL SIGNS: Blood pressure 180/80, pulse 84, and temperature afebrile. GENERAL: Patient is a pleasant male, who is in no acute distress. The patient appears their stated age. NEUROLOGIC: The patient is alert and oriented x3 with no focal neurologic deficits. HEENT: Sclerae without icterus. Mouth has moist mucous membranes with normal pallor. NECK: No JVD. Carotid upstroke brisk. No bruits bilaterally. LUNGS: Clear to auscultation with unlabored respirations. BACK: No scoliosis or kyphosis. CARDIAC: Regular rate and rhythm with normal S1 and S2. No S3 or S4 noted. No significant rubs, murmurs, thrills, or gallops noted throughout the precordium. PMI is not displaced. There is no parasternal heave. ABDOMEN: Soft, nontender, nondistended. No peritoneal signs present. No hepatosplenomegaly. No abnormal striae. EXTREMITIES: Lower extremities, palpable popliteal pulse on right. Nonpalpable anterior tibial or posterior tibial artery. Capillary refill diminished. 2+ femoral and 2+ dorsalis pedis pulses. No cyanosis, clubbing, or edema. SKIN: No gross abnormalities. IMPRESSION: 1. Nonhealing ulcer. 2. Diabetes mellitus. 3. Tobacco abuse. RECOMMENDATIONS: First and foremost, Mr. Flores needs to have his diabetes under aggressive treatment. He also needs to stop smoking. Based on his most recent lower extremity duplex, it did suggest right common femoral and SFA, but appears to have a good pulse noted in the popliteal region. At this point, I recommend aortofemoral runoff. I discussed the procedure in full detail Mr. Flores. Risks include, but not limited to the following: , stroke, NC, need for emergent surgery, loss of limb, bleeding, infection, as well as reaction to medication. All questions were answered. Given the above, the patient agreed to proceed with above procedure. His creatinine appears to be stable at 1.1 with a GFR of 66. Further recommendations pending the above. Job ID: [id number]
[2019-06-18] MEDS: Sodium Chloride 0.9% 1,000 ML IV SCH (17:18)
[2019-06-18] MEDS ORDERED: rOPINIRole HCl 0.25 MG TAB PO SCH (19:45)
[2019-06-18] MEDS: Atorvastatin Calcium 40 MG TAB PO SCH (20:23)
[2019-06-18] MEDS: Nicotine 14 MG PATCH TD SCH (20:25)
[2019-06-18] MEDS: Metoclopramide HCl 10 MG TAB PO PRN (21:30)
[2019-06-19] MEDS: Piperacillin/Tazobactam 3.375 GM in Sodium Chloride 0.9% 100 ML IVPB SCH ×3 (03:04→16:14)
[2019-06-19] MEDS: Sodium Chloride 0.9% 1,000 ML IV SCH ×2 (04:10→16:12)
[2019-06-19] MEDS: Lisinopril 20 MG TAB PO SCH (05:45)
[2019-06-19] MEDS: Gabapentin 300 MG CAP PO SCH ×3 (05:45→20:09)
[2019-06-19] MEDS: Senokot S 8.6-50 MG TAB PO SCH ×2 (05:46→23:11)
[2019-06-19] MEDS: Famotidine 20 MG TAB PO SCH ×2 (05:46→20:06)
[2019-06-19] MEDS: HYDROcodone/Acetaminophen 5/325 mg Tablet PO PRN ×3 (06:38→20:06)
[2019-06-19] MEDS: Metoclopramide HCl 10 MG TAB PO PRN ×2 (06:38→14:31)
[2019-06-19] MEDS: HumaLOG 300 UNITS/3 ML VIAL SC PRN ×3 (06:39→22:03)
[2019-06-19 07:25] LABS: Vancomycin, Trough 26.1 ug/mL
[2019-06-19] MEDS ORDERED: Heparin 10,000 UNITS/1 ML VIAL ONE (07:42)
[2019-06-19] MEDS ORDERED: Lidocaine 1% (PF) 30 ML VIAL ONE (07:44)
[2019-06-19] MEDS ORDERED: Protamine Sulfate 50 MG/5 ML VIAL ONE (09:20)
[2019-06-19] MEDS ORDERED: Sodium Chloride 0.9% 1,000 ML IV SCH (09:30)
[2019-06-19] MEDS ORDERED: hydrALAZINE 20 MG/ML VIAL ONE ×2 (09:46→09:51)
[2019-06-19] MEDS ORDERED: Nitroglycerin 4.9 GM Bottle ONE (09:46)
--- NOTE | 2019-06-19 10:08 | OP ---
DATE OF PROCEDURE: 06/19/2019 PREPROCEDURE DIAGNOSIS: Nonhealing ulcer. POSTPROCEDURE DIAGNOSES: 1. Nonhealing ulcer. 2. Severe peripheral vascular disease. PROCEDURE PERFORMED: 1. Aortogram. 2. Bilateral aortofemoral runoff. 3. Successful percutaneous transluminal angioplasty only to the popliteal artery. 4. Successful percutaneous transluminal angioplasty only to the anterior tibial artery. COMPLICATIONS: None. ESTIMATED BLOOD LOSS: Less than 20 mL. DESCRIPTION OF PROCEDURE: The patient was draped and prepped in sterile fashion. Access was obtained in the left femoral artery under ultrasound guidance. Micropuncture sheath was employed. Contra catheter was placed in the aorta with aortogram performed. The wire was then placed in the contralateral segment successfully with images performed. FINDINGS: Aorta has no significant stenosis. Right lower extremity-the common iliac, external iliac, common femoral artery have no significant disease. The SFA has no significant disease. The popliteal artery has a 60% lesion that is photopenic in the mid region. The anterior tibial artery has multiple lesions in the proximal mid and distal region, estimated 70% to 80%. The peroneal artery and posterior tibial artery are completely occluded with collaterals noted in the distal segment. The occlusion appears long. Left lower extremity-the common iliac, external iliac, common femoral artery have no significant disease. The SFA and popliteal artery have no significant disease. There is severe infrapopliteal disease with a patent posterior tibial artery and an occluded peroneal and anterior tibial artery. INTERVENTIONAL PROCEDURE: The 5-Tuvaluan sheath was exchanged for a 5-Tuvaluan shuttle sheath. This was placed in the proximal portion of the popliteal artery. A Luge wire was placed into the distal anterior tibial artery successfully. Heparin was used for anticoagulation. Multiple inflations with a 3 x 40 mm [place] balloon catheter were performed in the distal, mid, and proximal region. There continued to be some stenosis after balloon inflation, but flow appeared to be much better. Improved collateral flow present to the lateral foot. The patient was transferred to the outpatient area in stable condition. Job ID: [id number]
[2019-06-19] MEDS: Ondansetron PF 4 MG/2 ML Vial IVP PRN (10:19)
[2019-06-19] MEDS: Vancomycin HCl 1.5 GM in Sodium Chloride 0.9% 250 ML 300 ML IVPB SCH (10:28)
[2019-06-19] MEDS ORDERED: Insulin Regular 300 UNITS/3 ML VIAL ONE (11:52)
[2019-06-19] MEDS ORDERED: Bupivacaine PF 0.5% 30 ML VIAL ONE (11:54)
[2019-06-19] MEDS ORDERED: Neomycin-Polymyxin 1 ML AMP ONE (11:54)
[2019-06-19] MEDS ORDERED: Fentanyl 100 MCG/2 ML VIAL ONE (11:55)
--- NOTE | 2019-06-19 15:07 | CON ---
DATE OF CONSULTATION: 06/18/2019 SUBJECTIVE FINDINGS: The patient was seen at noon and resting comfortably in bed, talking to family and watching TV. The patient is known to the office by my partner. The patient has a history of stent placement on the left lower extremity, November of this year and in December of this year, he had a further amputation of the left foot, partial metatarsal laterally. He has had an ulcer on the right foot for over a month. He has been treated in the office as well as Wound Care. The wound has gone on to continue and enlarge. The patient has had some pain. The patient has been running at home with blood sugar 200 to 300. While in the hospital, they are having some difficulties controlling him, but his blood sugar control is improving. OBJECTIVE FINDINGS: The patient has bandages intact right foot. Bandages removed. Wounds seen over the lateral and plantar fifth metatarsal head. The lateral wound appears to probed to bone. No lanette gross drainage is seen. The patient has palpable dorsalis pedis 2/4 bilaterally. PT pulse is nonpalpable. The patient has minimum hair growth on feet. The patient has tight appearing skin on his feet. There is no lanette proximal cellulitis. The patient's MRI is suspect for osteomyelitic changes involving both the fifth digit and the fifth metatarsal head. Noted on the MRI was changes that were suspect for osteomyelitis of the great toe; however, this is not clinically coinciding and no signs of infection on the great toe. ASSESSMENT AND PLAN: 1. The patient's family and I discussed his options. We are going to do an amputation of the fifth digit partial fifth ray tomorrow. Plan to put wound VAC postoperatively. 2. I called Dr. Rosales for a Vascular consult to see if stenting would be appropriate. From history, he has had a stent on the left and was supposed to be re-evaluated later this year for possible stent on right lower extremity. 3. Dr. Sullivan has been consulted. Job ID: [id number]
[2019-06-19] MEDS ORDERED: Iopamidol 370 76% 100 ML VIAL ONE (15:58)
[2019-06-19] MEDS: NPH, Human Insulin Isophane 300 UNIT/3 ML VIAL SC SCH ×2 (16:13→22:02)
[2019-06-19] MEDS: Enoxaparin Sodium 80 MG/0.8 ML SYRINGE SC SCH ×2 (16:13→20:08)
[2019-06-19] MEDS: Aspirin 81 mg Enteric Coated Tablet PO SCH (16:13)
[2019-06-19] MEDS: Amlodipine 5 MG TAB PO SCH (16:13)
[2019-06-19] MEDS ORDERED: Lidocaine 1% PF 5 ML VIAL ONE (16:26)
[2019-06-19] MEDS ORDERED: PROPOFOL 200 MG/20 ML VIAL ONE (16:26)
[2019-06-19] MEDS ORDERED: ePHEDrine 50 MG/ML VIAL ONE (16:26)
[2019-06-19] MEDS ORDERED: Ondansetron PF 4 MG/2 ML Vial ONE (16:26)
[2019-06-19] MEDS ORDERED: PHENYLEPHRINE-NS 100 MCG/ML 10 ML SYRINGE ONE (16:26)
--- NOTE | 2019-06-19 16:38 | PRG ---
DATE OF SERVICE: 06/19/2019 SUBJECTIVE: The patient is seen and examined at the bedside. He just came back from cardiac cardiac cath lab radiology technologist, where he had angioplasty done on his right lower extremity arteries by Dr. Rosales. OBJECTIVE: VITAL SIGNS: Blood pressure is 157/79, pulse is 86, respiratory rate is 20, O2 saturation 95% on room air, and his temperature is 98.3. HEENT: His head is atraumatic and normocephalic. Eyes are PERRLA. Sclerae are nonicteric. Oral mucosa is somewhat dry. NECK: Supple. LUNGS: Clear. HEART: S1, S2 normal. No S3. No S4. ABDOMEN: Soft, nontender. EXTREMITIES: The right foot is wrapped. This is status post amputation of the first and fifth toes. NEUROLOGICAL: He follows my commands. He moves his all 4 extremities. LABORATORY DATA: Glycemia is ranging from 168 to 384. Vancomycin trough is 26.1. Activated clotting time is 238. Blood cultures came back negative x2 in 48 hours. IMPRESSION AND PLAN: 1. Diabetic ulcer, status post amputation of the fifth digit, partial fifth ray and a wound VAC postoperative placement. 2. Deep vein thrombosis in the right lower extremity based on Doppler studies, on Lovenox. 3. Severe peripheral vascular disease, status post angioplasty of right popliteal artery and anterior tibial artery by Dr. Rosales. 4. Uncontrolled type 2 diabetes mellitus. I doubled the dose of his insulin to twice a day 20 units, which is much more than what he was taking at home according to him, but his glycemia is still high despite of that. We will get a hemoglobin A1c to see how his glycemia is controlled at home and we will use aggressive sliding scale on the top of his insulin 70/30. We will continue his antibiotic regimen, which is vancomycin and Zosyn, and we will also await until we have tissue/specimen from his amputation cultured and resulted. Job ID: [id number]
[2019-06-19 17:07] LABS: Anion Gap 10 mmol/L (10-20); BUN (Urea Nitrogen) 19 mg/dL (8.4-25.7); Calc. Creatinine Clearance 60 mL/min (70-130); Carbon Dioxide 24 mmol/L (22-29); Chloride 104 mmol/L (98-107); Estimated GFR-MDRD 48; Glucose 355 mg/dL (70-105); Potassium 3.9 mmol/L (3.5-5.1); Sodium 134 mmol/L (136-145)
[2019-06-19] MEDS: Atorvastatin Calcium 40 MG TAB PO SCH (20:06)
[2019-06-19] MEDS: Cefepime 1 GM in Sodium Chloride 0.9% 100 ML IVPB SCH (20:07)
[2019-06-19] MEDS: Vancomycin HCl 1 GM in Premix Bag 1 BAG IVPB SCH (20:07)
[2019-06-19] MEDS: Nicotine 14 MG PATCH TD SCH (20:45)
[2019-06-19] MEDS ORDERED: Morphine 2 MG/ML SYRINGE SLOW IVP SCH (20:45)
[2019-06-19] MEDS: rOPINIRole HCl 0.25 MG TAB PO PRN (21:04)
--- NOTE | 2019-06-19 22:54 | CON ---
DATE OF CONSULTATION: PREOPERATIVE DIAGNOSIS: Osteomyelitis, right 5th metatarsal. POSTOPERATIVE DIAGNOSIS: Osteomyelitis, right 5th metatarsal. PROCEDURE: Partial 5th metatarsal resection with digit, right. ANESTHESIA: General with ankle block. Totaling 15 mL of 0.5% plain Marcaine. HEMOSTASIS: None used. ESTIMATED BLOOD LOSS: Less than 100 mL. PATHOLOGY: Necrotic tissue and pustular material seen in the 1st metatarsophalangeal joint. Significant softening and destruction to the metatarsal head noted. Culture and sensitivity sent. COMPLICATIONS: None. Job ID: [id number]
[2019-06-20] MEDS: HYDROcodone/Acetaminophen 5/325 mg Tablet PO PRN ×4 (00:04→13:20)
[2019-06-20] MEDS: Sodium Chloride 0.9% 1,000 ML IV SCH ×2 (00:05→09:30)
[2019-06-20 05:33] LABS: #Basophils 0.1 thou/uL (0.0-0.2); #Eosinphils 0.1 thou/uL (0.0-0.7); #Lymphocytes 1.9 thou/uL (1.20-3.40); #Monocytes 0.7 thou/uL (0.11-0.59); #Neutrophils 5.2 thou/uL (1.40-6.50); %Basophils 1.1 % (0.0-1.0); %Eosinophils 1.3 % (0.0-10.0); %Lymphocytes 23.2 % (21.0-51.0); %Monocytes 8.9 % (0.0-10.0); %Neutrophils 65.4 % (42.0-75.0); Hemoglobin 10.5 g/dL (14.0-18.0); Mean Corpuscular HGB CONC 33.7 g/dL (32.0-36.0); Mean Corpuscular Hemoglobin 31.1 pg (27.0-31.0); Mean Corpuscular Volume 92.4 fL (78.0-98.0); Mean Platelet Volume 7.8 fL (7.4-10.4); Platelet Count 206 thou/uL (130-400); RBC Distribution Width 12.1 % (11.5-14.5); Red Blood Cell (RBC) Count 3.36 mill/uL (4.70-6.10)
[2019-06-20 05:56] LABS: ALT (SGPT) 34 U/L (8-55); AST (SGOT) 42 U/L (5-34); Albumin 2.3 g/dL (3.5-5.0); Alkaline Phosphatase 175 U/L (40-150); Anion Gap 9 mmol/L (10-20); BUN (Urea Nitrogen) 16 mg/dL (8.4-25.7); Bilirubin, Total 0.2 mg/dL (0.2-1.2); Calc. Creatinine Clearance 72 mL/min (70-130); Calcium 7.8 mg/dL (7.8-10.44); Carbon Dioxide 26 mmol/L (22-29); Chloride 102 mmol/L (98-107); Estimated GFR-MDRD 59; Glucose 203 mg/dL (70-105); Potassium 3.5 mmol/L (3.5-5.1); Protein, Total 5.3 g/dL (6.0-8.3); Sodium 133 mmol/L (136-145)
[2019-06-20] MEDS: HumaLOG 300 UNITS/3 ML VIAL SC PRN ×2 (05:59→11:31)
--- NOTE | 2019-06-20 07:13 | PDOC.CPN ---
- Subjective Date: 06/20/19 Time: 13:10 - Objective Allergies/Adverse Reactions: Allergies Allergy/AdvReac Type Severity Reaction Status Date / Time No Known Drug Allergies Allergy Verified 06/16/19 00:40 Visit Medications: Current Medications Hydrocodone Bitart/Acetaminophen ([place] 5/325) 2 tab PO Q4H PRN PRN Reason: Moderate Pain (4-6) Last Admin: 06/20/19 04:19 Dose: 2 tab Amlodipine Besylate (Norvasc) 5 mg PO DAILY [facility] Last Admin: 06/19/19 16:13 Dose: Not Given Aspirin (Ecotrin) 81 mg PO DAILY [facility] Last Admin: 06/19/19 16:13 Dose: Not Given Atorvastatin Calcium (Lipitor) 40 mg PO HS [facility] Last Admin: 06/19/19 20:06 Dose: 40 mg Dextrose/Water (Dextrose 50%) 25 gm SLOW IVP PRN PRN PRN Reason: Hypoglycemia Enoxaparin Sodium (Lovenox) 80 mg SC 0900,2100 [facility] Last Admin: 06/19/19 20:08 Dose: 80 mg Famotidine (Pepcid) 20 mg PO BID [facility] Last Admin: 06/19/19 20:06 Dose: 20 mg Gabapentin (Neurontin) 900 mg PO TID [facility] Last Admin: 06/19/19 20:09 Dose: 900 mg Glucagon (Glucagon) 1 mg IM PRN PRN PRN Reason: Hypoglycemia Hydralazine HCl (Apresoline) 10 mg SLOW IVP Q4H PRN PRN Reason: SBP > 180 and HR < 70 Last Admin: 06/18/19 12:22 Dose: 10 mg Dextrose/Water (D5w) 1,000 mls @ 0 mls/hr IV .Q0M PRN PRN Reason: Hypoglycemia Sodium Chloride (Normal Saline 0.9%) 1,000 mls @ 100 mls/hr IV .Q10H [facility] Last Admin: 06/20/19 00:05 Dose: 1,000 mls Vancomycin HCl 1 gm/ Device 200 mls @ 200 mls/hr IVPB 0800,2000 [facility] Last Admin: 06/19/19 20:07 Dose: 200 mls Cefepime HCl 1 gm/ Sodium (Chloride) 100 mls @ 200 mls/hr IVPB Q12HR [facility] Last Admin: 06/19/19 20:07 Dose: 100 mls Insulin Human Lispro (Humalog) 0 units SC .MODERATE SLIDING SC PRN PRN Reason: Moderate Correctional Scale Last Admin: 06/20/19 05:59 Dose: 2 unit Insulin Human Lispro (Humalog) 0 units SC .BEDTIME SLIDING SC PRN PRN Reason: Bedtime Correctional Scale Last Admin: 06/19/19 22:03 Dose: 3 unit Insulin Human NPH (Humulin N) 20 unit SC BID [facility] Last Admin: 06/19/19 22:02 Dose: 20 unit Labetalol HCl (Normodyne) 20 mg SLOW IVP Q4H PRN PRN Reason: SBP > 180 and HR >/= 70 Lisinopril (Zestril) 20 mg PO DAILY [facility] Last Admin: 06/19/19 05:45 Dose: 20 mg Metoclopramide HCl (Reglan) 10 mg PO Q8H PRN PRN Reason: Nausea Last Admin: 06/19/19 14:31 Dose: 10 mg Miscellaneous Medication (Pharmacy To Dose) 0 each IVPB PRN PRN PRN Reason: PHARMACY TO DOSE Nicotine (Nicoderm Patch) 14 mg TD Q24HR [facility] Last Admin: 06/19/19 20:45 Dose: 14 mg Ondansetron HCl (Zofran) 4 mg IVP Q6H PRN PRN Reason: Nausea/Vomiting Last Admin: 06/19/19 10:19 Dose: 4 mg Ropinirole HCl (Requip) 0.25 mg PO DAILYPRN PRN PRN Reason: .RESTLESS LEGS Last Admin: 06/19/19 21:04 Dose: 0.25 mg Senna/Docusate Sodium (Senokot S) 1 tab PO BID [facility] Last Admin: 06/19/19 23:11 Dose: Not Given Vital Signs & Weight: Vital Signs Temp Pulse Resp BP Pulse Ox 06/20/19 03:10 98.4 F 90 16 152/75 H 97 06/19/19 23:25 97.7 F 98 16 158/72 H 95 06/19/19 21:00 156/80 H 06/19/19 20:00 94 L 06/19/19 19:45 100.3 F H 112 H 18 180/78 H 94 L Admit Weight 171 lb Weight 171 lb 15.369 oz - Physical Exam General: alert & oriented x3 HEENT: mucus membranes moist Neck: supple neck Cardiac: regular rate and rhythm, no murmur Lungs: clear to auscultation Musculoskeletal: other (recent ampuutation to right 5th MT) - Labs Result Diagrams: 06/20/19 04:21 06/20/19 04:21 - Problem (1) PVD (peripheral vascular disease) Code(s): I73.9 - PERIPHERAL VASCULAR DISEASE, UNSPECIFIED Assessment and Plan: Revascularization to the AT artery. No flow in the PT, peroneal artery Strict DM management No smoking (2) CKD (chronic kidney disease), stage II Code(s): N18.2 - CHRONIC KIDNEY DISEASE, STAGE 2 (MILD) Assessment and Plan: Stable (3) HTN (hypertension) Code(s): I10 - ESSENTIAL (PRIMARY) HYPERTENSION Qualifiers: Assessment and Plan: stable - Assessment/Plan Assessment/Plan: Plan is OP fu Please reconsult oif other changes arise
--- NOTE | 2019-06-20 08:13 | OP ---
DATE OF PROCEDURE: 06/19/2019 PREOPERATIVE DIAGNOSIS: Osteomyelitis, right fifth metatarsal. POSTOPERATIVE DIAGNOSIS: Osteomyelitis, right fifth metatarsal. PROCEDURE PERFORMED: Partial fifth metatarsal resection with digit, right. ANESTHESIA: General with local ankle block, 15 mL of 0.5% plain Marcaine. ESTIMATED BLOOD LOSS: Less than 100 mL. DESCRIPTION OF PROCEDURE: The patient was taken to the operating room and placed on the operating room table in a supine position. After general anesthesia was achieved, an ankle block was performed using 15 mL of 0.5% plain Marcaine. Next, the right lower extremity was scrubbed and draped in the usual surgical manner. Attention was directed to the right foot. A racquet type incision was made on the dorsal aspect of the fifth metatarsal circumscribing the digit and wound. Next, soft tissues were debrided and freed to identify the MPJ and dorsal fifth metatarsal. Significant pustular material was noted at the fifth MPJ and was cultured. Next, using a power saw, the fifth metatarsal was resected at the distal third on a bias taking more plantar and lateral and less dorsal and medial. The metatarsal and digital unit were excised. Next, the flexor apparatus and longus tendon were clamped and resected. The capsular tissue was resected. Next, copious lavage with irrigant was performed. Inspection of the wound showed no remaining necrotic tissues. The Wound Care Team applied the wound VAC system. The patient tolerated the anesthesia and procedure well. He left the operating room to the recovery room with vital signs stable. He will be readmitted to the hospital for IV antibiotic therapy, wound care and to monitor his blood sugar. We will follow up with him tomorrow to check on the status. Job ID: [id number]
[2019-06-20] MEDS: Famotidine 20 MG TAB PO SCH ×2 (08:33→21:07)
[2019-06-20] MEDS: Gabapentin 300 MG CAP PO SCH ×3 (08:33→21:07)
[2019-06-20] MEDS: Vancomycin HCl 1 GM in Premix Bag 1 BAG IVPB SCH ×2 (08:33→20:57)
[2019-06-20] MEDS: Lisinopril 20 MG TAB PO SCH (08:34)
[2019-06-20] MEDS: Amlodipine 5 MG TAB PO SCH (08:34)
[2019-06-20] MEDS: Enoxaparin Sodium 80 MG/0.8 ML SYRINGE SC SCH (08:34)
[2019-06-20] MEDS: Senokot S 8.6-50 MG TAB PO SCH ×2 (08:34→21:08)
[2019-06-20] MEDS: Aspirin 81 mg Enteric Coated Tablet PO SCH (08:34)
[2019-06-20] MEDS: NPH, Human Insulin Isophane 300 UNIT/3 ML VIAL SC SCH ×2 (08:35→21:23)
[2019-06-20] MEDS: Ondansetron PF 4 MG/2 ML Vial IVP PRN (08:40)
[2019-06-20] MEDS: Cefepime 1 GM in Sodium Chloride 0.9% 100 ML IVPB SCH ×2 (09:30→23:26)
[2019-06-20] MEDS: Morphine 4 MG/ML VIAL SLOW IVP PRN ×3 (11:31→23:26)
--- NOTE | 2019-06-20 11:43 | PRG ---
DATE OF SERVICE: 06/20/2019 SUBJECTIVE: The patient is seen and examined at the bedside. He has quite a bit of pain during my visit. His is present in the room during my visit. He received his hydrocodone at 0830 hours, now it is almost 1030 hours, and he started having the pain again. He had some vomiting with some nausea, this sounds related to his not adequate pain coverage. OBJECTIVE: VITAL SIGNS: Blood pressure is 157/71, pulse is 82, respiratory rate is 16, O2 saturation is 94% on room air, temperature is 97.9, maximal temperature is 100.3 in the last 24 hours. HEENT: His head is atraumatic, normocephalic. Eyes are PERRLA. Sclerae are nonicteric. Oral mucosa is moist. NECK: Supple. LUNGS: Clear. HEART: S1, S2 normal. No S3. No S4. No any murmur. ABDOMEN: Soft, nontender. Bowel sounds are present. No organomegaly. EXTREMITIES: No clubbing, cyanosis, or edema. NEUROLOGICAL: He is alert and oriented x4. He is status post right foot fifth toe partial amputation. His right foot is wrapped. LABORATORY DATA: Labs showed hemoglobin of 10.5, hematocrit 31.0, white count 8.0, platelet count 206,000. Sodium of 133, potassium 3.5, chloride 102, CO2 of 26, BUN 16, creatinine 1.26, glycemia is ranging from 135 to 293. MICROBIOLOGY: Toe swab positive for many epithelial cells, many WBCs, and few gram-positive cocci. Culture is in progress. IMPRESSION: 1. Right foot diabetic ulcer with evidence of osteomyelitis of the fifth toe, status post partial amputation of the fifth digit. Wound VAC postoperatively in place. 2. Deep vein thrombosis in the right lower extremity based on Doppler studies, on Lovenox. 3. Severe peripheral vascular disease, status post angioplasty of the right popliteal artery and anterior tibial artery. 4. Uncontrolled type-2 diabetes mellitus, gradually improving glycemia with current regimen. 5. Restless legs syndrome, started on Requip. We will increase his dose to 0.25 twice a day. PLAN: Plan is to switch him to Eliquis from Lovenox, increase his hydrocodone dose, get ID consult with Dr. Sullivan for further antibiotic treatment if needed at this point and address this right great toe osteomyelitis suspicion raised by radiologist. We will continue close monitoring of his sugar and continue his current regimen with vancomycin and Zosyn. Job ID: [id number]
[2019-06-20 12:16] LABS: Hemoglobin A1c Greater than 14.0 % (4.0-6.0)
[2019-06-20] MEDS: Metoclopramide HCl 10 MG TAB PO PRN (12:31)
[2019-06-20] MEDS: rOPINIRole HCl 0.25 MG TAB PO PRN (14:38)
--- NOTE | 2019-06-20 16:47 | EKG ---
Test Reason : POST RUN OFF Blood Pressure : / mmHG Vent. Rate : 098 BPM Atrial Rate : 098 BPM P-R Int : 130 ms QRS Dur : 114 ms QT Int : 394 ms P-R-T Axes : 057 021 061 degrees QTc Int : 503 ms Normal sinus rhythm Prolonged QT Abnormal ECG When compared with ECG of 29-APR-2018 14:17, QT has lengthened Confirmed by DR. Manuel HATFIELD ([id number]) on 06/20/2019 4:47:11 PM Referred By: [facility]I Confirmed By:DR. Manuel HATFIELD
--- NOTE | 2019-06-20 16:56 | EKG ---
Test Reason : Blood Pressure : / mmHG Vent. Rate : 083 BPM Atrial Rate : 083 BPM P-R Int : 136 ms QRS Dur : 118 ms QT Int : 396 ms P-R-T Axes : 043 011 054 degrees QTc Int : 465 ms Normal sinus rhythm Non-specific intra-ventricular conduction delay Borderline ECG When compared with ECG of 19-JUN-2019 10:28, (Unconfirmed) No significant change was found Confirmed by DR. Manuel HATFIELD ([id number]) on 06/20/2019 4:55:45 PM Referred By: [facility]I Confirmed By:DR. Manuel HATFIELD
[2019-06-20] MEDS: Atorvastatin Calcium 40 MG TAB PO SCH (21:07)
[2019-06-20] MEDS: Apixaban 5 MG TAB PO SCH (21:07)
[2019-06-20] MEDS: Nicotine 14 MG PATCH TD SCH (21:23)
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
--- NOTE | 2019-06-21 00:11 | CON ---
DATE OF CONSULTATION: Postop day #1 visit The patient was seen in the [facility] walking with physical therapy. The patient states he is doing well with some pain. The wound VAC is in place and functional. The patient appears stable with PT. The patient appears to be doing well. From podiatry standpoint, the patient may be discharged to home. He will follow up with me within 2 weeks post discharge. The patient's discharge is pending. IV antibiotic therapy and wound VAC therapy for home. Job ID: [id number]
[2019-06-21] MEDS: HumaLOG 300 UNITS/3 ML VIAL SC PRN ×3 (06:24→16:32)
[2019-06-21] MEDS: HYDROcodone/Acetaminophen 5/325 mg Tablet PO PRN ×2 (06:37→12:36)
[2019-06-21 07:40] LABS: Vancomycin, Trough 19.4 ug/mL
[2019-06-21] MEDS: Lisinopril 20 MG TAB PO SCH ×3 (08:20→22:31)
[2019-06-21] MEDS: Gabapentin 300 MG CAP PO SCH ×3 (08:20→22:31)
[2019-06-21] MEDS: Saccharomyces boulardii 250 MG CAP PO SCH (08:20)
[2019-06-21] MEDS: Aspirin 81 mg Enteric Coated Tablet PO SCH (08:20)
[2019-06-21] MEDS: Apixaban 5 MG TAB PO SCH ×2 (08:21→22:30)
[2019-06-21] MEDS: Amlodipine 5 MG TAB PO SCH ×2 (08:21→09:39)
[2019-06-21] MEDS: Senokot S 8.6-50 MG TAB PO SCH ×2 (08:21→22:30)
[2019-06-21] MEDS: Vancomycin HCl 1 GM in Premix Bag 1 BAG IVPB SCH ×2 (08:22→21:01)
[2019-06-21] MEDS: NPH, Human Insulin Isophane 300 UNIT/3 ML VIAL SC SCH ×2 (08:23→22:33)
[2019-06-21] MEDS: Famotidine 20 MG TAB PO SCH ×2 (08:28→22:31)
[2019-06-21] MEDS: Cefepime 1 GM in Sodium Chloride 0.9% 100 ML IVPB SCH ×2 (08:28→21:01)
[2019-06-21] MEDS: rOPINIRole HCl 0.25 MG TAB PO SCH ×2 (09:41→22:31)
[2019-06-21 10:08] LABS: #Eosinphils 0.2 thou/uL (0.0-0.7); #Lymphocytes 1.1 thou/uL (1.20-3.40); #Monocytes 0.8 thou/uL (0.11-0.59); #Neutrophils 6.2 thou/uL (1.40-6.50); %Basophils 0.4 % (0.0-1.0); %Eosinophils 2.3 % (0.0-10.0); %Monocytes 9.3 % (0.0-10.0); Hemoglobin 11.2 g/dL (14.0-18.0); Mean Corpuscular HGB CONC 33.9 g/dL (32.0-36.0); Mean Corpuscular Hemoglobin 30.8 pg (27.0-31.0); Mean Corpuscular Volume 90.7 fL (78.0-98.0); Platelet Count 237 thou/uL (130-400); Red Blood Cell (RBC) Count 3.64 mill/uL (4.70-6.10); White Blood Cell (WBC) Count 8.3 thou/uL (4.8-10.8)
[2019-06-21 10:25] LABS: Anion Gap 8 mmol/L (10-20); BUN (Urea Nitrogen) 10 mg/dL (8.4-25.7); Calc. Creatinine Clearance 90 mL/min (70-130); Calcium 8.3 mg/dL (7.8-10.44); Carbon Dioxide 27 mmol/L (22-29); Chloride 103 mmol/L (98-107); Estimated GFR-MDRD 76; Glucose 210 mg/dL (70-105); Sodium 134 mmol/L (136-145)
[2019-06-21] MEDS: Morphine 4 MG/ML VIAL SLOW IVP PRN (11:05)
[2019-06-21] MEDS: hydrALAZINE 20 MG/ML VIAL SLOW IVP PRN (12:27)
[2019-06-21] MEDS ORDERED: traMADol HCl 50 MG TAB PO SCH (13:15)
[2019-06-21] MEDS: Ondansetron PF 4 MG/2 ML Vial IVP PRN (16:40)
--- NOTE | 2019-06-21 16:51 | PRG ---
DATE OF SERVICE: 06/21/2019 SUBJECTIVE: The patient is seen and examined at bedside. He still has some lower extremity jerking on and off, but it is much less what it used to be. His appetite is good. OBJECTIVE: VITAL SIGNS: Blood pressure is 165/79, temperature is 97.9, pulse is 90, respirations 16, O2 saturation is 94% on room air. HEENT: His head is atraumatic and normocephalic. Eyes are PERRLA. Sclerae are nonicteric. Oral mucosa is moist. NECK: Supple. LUNGS: Clear. HEART: S1 and S2 normal. No S3. No S4. ABDOMEN: Soft, nontender, nondistended. EXTREMITIES: Right lower extremity showing 1+ peripheral edema. The right foot is wrapped and the wound VAC is in place. NEUROLOGIC: He follows my commands. He moves his all 4 extremities. LABORATORY DATA: White count of 8.3, hemoglobin 11.2, hematocrit 33.0, platelet count is 237,000. Sodium of 134, potassium 4.0, chloride 103, BUN of 10, creatinine 1.01. Glycemia is ranging from 166 to 331. Microbiology; swab of the toe. Culture results are pending. Two blood cultures, negative. IMPRESSION: 1. Right foot fifth toe osteomyelitis, status post partial amputation of the fifth digit. A wound VAC postoperatively in place. 2. Deep vein thrombosis in the right lower extremity based on Doppler studies, switched on to Eliquis. 3. Severe peripheral vascular disease, status post angioplasty of the right popliteal artery and anterior tibial arteries by Dr. Rosales. 4. Prolonged QT interval corrected after the appropriate changes made with antibiotics. 5. Uncontrolled diabetes mellitus. Hemoglobin A1c came back more than 14. His glycemia is improving on current regimen. We will continue 2 injections of long-acting insulin and sliding scale. 6. Restless legs syndrome. We will go up on his Requip to 0.25 mg twice a day. PLAN: At this point, the patient was seen by Dr. Sullivan, who is awaiting for the final report and based on this recommendation will be made regarding frequency and what kind of treatment he is going to have to take at home. For now, we are going to continue his current regimen. Job ID: [id number]
[2019-06-21] MEDS: Atorvastatin Calcium 40 MG TAB PO SCH (22:31)
[2019-06-21] MEDS: traMADol HCl 50 MG TAB PO PRN (22:32)
[2019-06-21] MEDS: Nicotine 14 MG PATCH TD SCH (22:33)
[2019-06-22 05:07] LABS: #Eosinphils 0.3 thou/uL (0.0-0.7); #Lymphocytes 1.3 thou/uL (1.20-3.40); #Monocytes 0.9 thou/uL (0.11-0.59); #Neutrophils 5.9 thou/uL (1.40-6.50); %Basophils 0.4 % (0.0-1.0); %Eosinophils 3.7 % (0.0-10.0); %Lymphocytes 15.4 % (21.0-51.0); %Monocytes 10.5 % (0.0-10.0); Mean Corpuscular Hemoglobin 30.4 pg (27.0-31.0); Mean Corpuscular Volume 92.3 fL (78.0-98.0); Mean Platelet Volume 7.5 fL (7.4-10.4); Platelet Count 259 thou/uL (130-400); RBC Distribution Width 12.1 % (11.5-14.5); Red Blood Cell (RBC) Count 3.61 mill/uL (4.70-6.10); White Blood Cell (WBC) Count 8.5 thou/uL (4.8-10.8)
[2019-06-22 05:23] LABS: Anion Gap 7 mmol/L (10-20); BUN (Urea Nitrogen) 10 mg/dL (8.4-25.7); Calc. Creatinine Clearance 87 mL/min (70-130); Calcium 8.3 mg/dL (7.8-10.44); Carbon Dioxide 30 mmol/L (22-29); Chloride 100 mmol/L (98-107); Estimated GFR-MDRD 73; Glucose 230 mg/dL (70-105); Sodium 133 mmol/L (136-145)
[2019-06-22] MEDS: HumaLOG 300 UNITS/3 ML VIAL SC PRN ×2 (05:51→17:32)
[2019-06-22] MEDS: Vancomycin HCl 1 GM in Premix Bag 1 BAG IVPB SCH ×2 (09:09→21:21)
[2019-06-22] MEDS: Ondansetron PF 4 MG/2 ML Vial IVP PRN (09:27)
[2019-06-22] MEDS: Aspirin 81 mg Enteric Coated Tablet PO SCH (10:44)
[2019-06-22] MEDS: Apixaban 5 MG TAB PO SCH ×2 (10:45→21:22)
[2019-06-22] MEDS: Gabapentin 300 MG CAP PO SCH ×3 (10:45→21:22)
[2019-06-22] MEDS: Lisinopril 20 MG TAB PO SCH ×2 (10:45→21:22)
[2019-06-22] MEDS: Saccharomyces boulardii 250 MG CAP PO SCH (10:45)
[2019-06-22] MEDS: Amlodipine 5 MG TAB PO SCH (10:46)
[2019-06-22] MEDS: Senokot S 8.6-50 MG TAB PO SCH ×2 (10:46→21:20)
[2019-06-22] MEDS: rOPINIRole HCl 0.25 MG TAB PO SCH ×2 (10:47→21:22)
[2019-06-22] MEDS: Famotidine 20 MG TAB PO SCH ×2 (10:54→21:26)
[2019-06-22] MEDS: traMADol HCl 50 MG TAB PO PRN ×2 (11:02→21:36)
[2019-06-22] MEDS: NPH, Human Insulin Isophane 300 UNIT/3 ML VIAL SC SCH ×2 (11:29→21:27)
[2019-06-22] MEDS: Cefepime 1 GM in Sodium Chloride 0.9% 100 ML IVPB SCH ×2 (12:06→21:21)
[2019-06-22] MEDS: Metoclopramide 10 MG/10 ML UDCUP PO SCH ×3 (12:06→21:19)
[2019-06-22] MEDS: hydrALAZINE 20 MG/ML VIAL SLOW IVP PRN (12:20)
--- NOTE | 2019-06-22 14:09 | PRG ---
DATE OF SERVICE: 06/22/2019 SUBJECTIVE: The patient is seen and examined at the bedside. He noticed significant change in terms of number of jerks he get per hour since we doubled the dose on his Requip. His appetite is good. OBJECTIVE: VITAL SIGNS: Blood pressure is 188/91, pulse is 93, respiratory rate is 16, O2 saturation is 94% on room air, and his temperature is 98.9, maximal temperature is 98.9. LABORATORY DATA: Microbiology, two blood cultures negative. Swab culture, moderate mixed skin jemma. IMPRESSION: 1. Right foot fifth toe osteomyelitis, status post partial amputation of the fifth digit. Wound VAC postoperatively in place. 2. Deep vein thrombosis in the right lower extremity. The patient is on Eliquis. 3. Severe peripheral vascular disease, status post angioplasty of the right popliteal artery and anterior tibial arteries by Dr. Rosales during this hospitalization. 4. Prolonged QT interval. I corrected with the recent EKG after the antibiotics were changed. 5. Uncontrolled diabetes mellitus with hemoglobin A1c more than 14. The regimen was changed to 24 units of NPH twice a day along with the sliding scale. 6. Uncontrolled hypertension. We increased the dose on his amlodipine and lisinopril yesterday, and we are going to keep close eye on this issue. 7. Restless legs syndrome with Requip, two doses of 0.25 mg tablets a day. PLAN: We are going to contact Dr. Sullivan regarding his antibiotic regimen for outpatient therapy. In the meantime, we will try to correct his hypertension and hyperglycemia, which are both still significant problem. Rubber Engraver said that the patient can be discharged home and follow up with him in 2 weeks. We will continue pain management. Job ID: [id number]
[2019-06-22] MEDS: Atorvastatin Calcium 40 MG TAB PO SCH (21:22)
[2019-06-22] MEDS: Nicotine 14 MG PATCH TD SCH (21:27)
[2019-06-23] MEDS: traMADol HCl 50 MG TAB PO PRN ×2 (03:39→09:37)
[2019-06-23 04:21] LABS: #Eosinphils 0.2 thou/uL (0.0-0.7); #Lymphocytes 1.7 thou/uL (1.20-3.40); #Monocytes 0.9 thou/uL (0.11-0.59); #Neutrophils 6.2 thou/uL (1.40-6.50); %Basophils 0.4 % (0.0-1.0); %Lymphocytes 19.3 % (21.0-51.0); %Monocytes 9.8 % (0.0-10.0); %Neutrophils 68.5 % (42.0-75.0); Hemoglobin 10.5 g/dL (14.0-18.0); Mean Corpuscular HGB CONC 33.3 g/dL (32.0-36.0); Mean Corpuscular Hemoglobin 30.7 pg (27.0-31.0); Mean Corpuscular Volume 91.9 fL (78.0-98.0); Mean Platelet Volume 6.6 fL (7.4-10.4); Platelet Count 284 thou/uL (130-400); RBC Distribution Width 12.1 % (11.5-14.5); Red Blood Cell (RBC) Count 3.44 mill/uL (4.70-6.10)
[2019-06-23 04:39] LABS: Anion Gap 8 mmol/L (10-20); BUN (Urea Nitrogen) 13 mg/dL (8.4-25.7); Calc. Creatinine Clearance 78 mL/min (70-130); Calcium 8.3 mg/dL (7.8-10.44); Carbon Dioxide 29 mmol/L (22-29); Chloride 98 mmol/L (98-107); Estimated GFR-MDRD 65; Glucose 210 mg/dL (70-105); Sodium 131 mmol/L (136-145)
[2019-06-23] MEDS: HumaLOG 300 UNITS/3 ML VIAL SC PRN (06:49)
[2019-06-23] MEDS: Vancomycin HCl 1 GM in Premix Bag 1 BAG IVPB SCH (09:21)
[2019-06-23] MEDS: Apixaban 5 MG TAB PO SCH (09:22)
[2019-06-23] MEDS: rOPINIRole HCl 0.25 MG TAB PO SCH (09:22)
[2019-06-23] MEDS: Lisinopril 20 MG TAB PO SCH (09:22)
[2019-06-23] MEDS: Gabapentin 300 MG CAP PO SCH (09:22)
[2019-06-23] MEDS: Senokot S 8.6-50 MG TAB PO SCH (09:22)
[2019-06-23] MEDS: Saccharomyces boulardii 250 MG CAP PO SCH (09:22)
[2019-06-23] MEDS: Aspirin 81 mg Enteric Coated Tablet PO SCH (09:22)
[2019-06-23] MEDS: Amlodipine 5 MG TAB PO SCH (09:23)
[2019-06-23] MEDS: Famotidine 20 MG TAB PO SCH (09:23)
[2019-06-23] MEDS: NPH, Human Insulin Isophane 300 UNIT/3 ML VIAL SC SCH (09:34)
[2019-06-23] MEDS: Morphine 4 MG/ML VIAL SLOW IVP PRN (09:38)
[2019-06-23 10:45] VITALS: BP 177/87; TEMP 98.1
[2019-06-23] MEDS: Cefepime 1 GM in Sodium Chloride 0.9% 100 ML IVPB SCH (16:30)
--- NOTE | 2019-06-23 20:10 | DIS ---
DATE OF ADMISSION: 06/15/2019 DATE OF DISCHARGE: 06/23/2019 DIAGNOSES AT THE TIME OF DISCHARGE: 1. Right foot fifth toe osteomyelitis, status post partial amputation of the fifth digit. A wound VAC postoperatively in place. 2. Deep vein thrombosis in the right lower extremity. 3. Severe peripheral vascular disease, status post angioplasty of the right popliteal artery and anterior tibial arteries by Dr. Rosales during this hospitalization. 4. Prolonged QT interval on EKG, corrected with change in antibiotics use. 5. Uncontrolled diabetes mellitus with hemoglobin A1c more than 14. 6. Uncontrolled hypertension. 7. Restless legs syndrome, treated with Requip, improved. CONSULTANTS: 1. Dr. Sultana, lockstitch hemmer. 2. Dr. Dayton Rosales, Cardiology Service. 3. Dr. Dayton Sullivan, Infectious Diseases Service. HOSPITAL COURSE: The patient was a 54-year-old male, who was admitted to the hospital with worsening right lower extremity pain and nonhealing diabetic foot ulcer. Apparently, his medical history is positive for type 2 diabetes mellitus and previous history of diabetic foot ulcers resulting in amputation of the left fifth toe in the past. Also, he has a past medical history of hypertension and tobacco abuse. While in the emergency room, he stated that he was taking clindamycin 10-day course from his lockstitch hemmer, Dr. Reich from [place]. However, those symptoms of pain and swelling did not improve despite of compliance with his antibiotic course. In the emergency room, x-ray of his right foot was done and it showed a soft tissue ulcer lateral to the fifth metatarsophalangeal joint along with a focal osteopenia at the proximal aspect of the fifth proximal phalanx. It was nonspecific, but did indicate possible osteomyelitis. Lower extremity MRI was done, which showed findings very suspicious for osteomyelitis involving the little toe and head of the fifth metatarsal in addition to some findings suspicious for underlying osteomyelitis in the distal phalanx of the great toe. A vascular ultrasound of his right lower extremity showed partial nonocclusive thrombus in the femoral vein, mid and distal as well as the posterior tibial vein. His white cell count was 11,000. Lactic acid was negative. His hemoglobin was 13.1, hematocrit 39.1, platelet count 233. Sodium was 127, potassium 5.0, BUN 28, creatinine 1.57. Lactic acid was 1.6. AST 12, ALT 12, and alkaline phosphatase . The patient was started on IV antibiotics, broad-spectrum, vancomycin and Zosyn. He was given fluid resuscitation and lockstitch hemmer consult was placed. He was started on Lovenox for his DVT, full dose 1 mg/kg every 12 hours subcutaneously, and he got admitted to the hospital. Subsequently, lockstitch hemmer recommended surgical intervention and he did partial fifth metatarsal resection with digit on the right side secondary to osteomyelitis of the right fifth metatarsal. Subsequently, driver messenger saw the patient and the patient underwent revascularization by Dr. Rosales, who did angioplasty on the popliteal artery and anterior tibial artery and bilateral aortofemoral runoff along with aortogram. Since electrocardiogram showed prolonged QT, his Zosyn was stopped and the cefepime was introduced in placed of Zosyn. He was continued on vancomycin, but cultures of the toe specimen came back showing just moderate mixed skin jemma, so the patient was continued on the same regimen and the wound VAC was in place, and since his glycemia was running high and hemoglobin A1c came back more than 14, he was given a double dose on his insulin, which was NPH 24 units twice a day. Originally at the time of admission, his glycemia was in the range of 290 and it went down to 150s at the time of discharge. His blood pressure required additional introduction of amlodipine at the dose of 10 mg and his lisinopril was doubled to 20 mg twice a day. He is discharged home in good condition after he is switched to Eliquis from low molecular weight heparin for his DVT. He received 10 mg twice a day of Eliquis and he is supposed to stay on this dose until the 28 of June when he will switch to 5 mg twice a day. This was explained to the patient thoroughly and he understands that he is going to have two different strength of Eliquis and he has to finish up his 10 mg doses before he starts taking 5 mg tablets twice a day. He seems to be understanding the purpose of that. He is discharged home. Blood pressure is 177/87, pulse is 89, temperature is 98.1, respirations 16, O2 saturation is 93% on room air. I believe that his blood pressure is going to go down gradually because we just doubled the dose on his medications two days ago and it is going to take additional probably a day or two before we start seeing significant effect of this change. DIET: He is discharged home on diabetic diet. ACTIVITIES: He is not supposed to put much pressure on his right foot. FOLLOWUP: He will call his PCP and follow up with him in 1 week, and he will do follow up with Dr. Sultana, he will call his office and set up followup appointment. MEDICATIONS AT THE TIME OF DISCHARGE: 1. Amlodipine 10 mg once a day. 2. Augmentin 875 mg tablets twice a day. Both antibiotics for 2 weeks. The second antibiotic is minocycline 100 mg twice a day for 2 weeks. 3. Also, he will continue lisinopril 20 mg twice a day. 4. Eliquis 10 mg twice a day until the , then he will switch to 5 mg twice a day. 5. He will stay on insulin NPH 26 units twice a day. 6. He will continue nicotine patch. 7. Florastor 250 mg once a day. 8. Ropinirole 0.25 mg three times a day for his restless legs syndrome. 9. Also, I am going to restart his metformin 1000 mg twice a day. 10. Aspirin 81 mg once a day. 11. Atorvastatin 40 mg at bedtime. 12. Gabapentin 900 mg three times a day. 13. Pregabalin 300 mg daily. The patient is seen and examined at bedside before he is discharged. He is discharged with home health with wound VAC and tramadol p.r.n. for his pain. Job ID: [id number]
[2019-06-28] MEDS ORDERED: Apixaban 5 MG TAB PO SCH (09:00)
== END 2019-06-23 14:20 | disposition home health service (06) | DRG 617 ==
LOC: ERS 11:53 → SURG A 16:30
PROVIDERS: ADMIT Internal Medicine; ATTEND Internal Medicine
PROC: 0Y6X0Z2 Detachment at Right 5th Toe, Mid, Open Approach (ICD-10-PCS; principal; 2019-06-19)
PROC: 047M3ZZ Dilation of Right Popliteal Artery, Percutaneous Approach (ICD-10-PCS; 2019-06-19)
PROC: 047P3ZZ Dilation of Right Anterior Tibial Artery, Percutaneous Approach (ICD-10-PCS; 2019-06-19)
PROC: B41D1ZZ Fluoroscopy of Aorta and Bilateral Lower Extremity Arteries using Low Osmolar Contrast (ICD-10-PCS; 2019-06-19)
PROC: 2W1UX6Z Compression of Right Toe using Pressure Dressing (ICD-10-PCS; 2019-06-19)
DX: E11.69 Type 2 diabetes mellitus with other specified complication (principal); M86.8X7 Other osteomyelitis, ankle and foot; I82.4Z1 Acute embolism and thrombosis of unspecified deep veins of right distal lower extremity; E11.51 Type 2 diabetes mellitus with diabetic peripheral angiopathy without gangrene; I12.9 Hypertensive chronic kidney disease with stage 1 through stage 4 chronic kidney disease, or unspecified chronic kidney disease; E78.5 Hyperlipidemia, unspecified; E11.22 Type 2 diabetes mellitus with diabetic chronic kidney disease; N18.3 Chronic kidney disease, stage 3 (moderate); E11.621 Type 2 diabetes mellitus with foot ulcer; L97.519 Non-pressure chronic ulcer of other part of right foot with unspecified severity; I45.81 Long QT syndrome; E11.65 Type 2 diabetes mellitus with hyperglycemia; G25.81 Restless legs syndrome; F17.210 Nicotine dependence, cigarettes, uncomplicated; E11.40 Type 2 diabetes mellitus with diabetic neuropathy, unspecified; Z79.4 Long term (current) use of insulin; Z90.49 Acquired absence of other specified parts of digestive tract; Z89.422 Acquired absence of other left toe(s)
CPT/HCPCS: 36140; 36415; 36416; 37224; 37228; 76942; 80048; 80053; 80202; 82565; 83036; 83605; 85007; 85014; 85018; 85025; 85027; 85049; 85347; 85610; 85730; 87040; 87070; 87205; 88305; 88311; 93005; 93010; 93923; 94760; 96361; 96365; 96367; 96372; 96375; C1769; C1887; J0360; J0692; J1644; J1650; J1815; J2001; J2270; J2405; J2543; J2704; J2720; J3010; J3370; J3490; J7050; J8597; Q9967; S0020

== ENCOUNTER 2019-07-01 12:17 | Inpatient (IN) | payer BC ==
[2019-07-01] MEDS ORDERED: ISOVUE-370 76%-LOCM 1 ML ONE (12:23)
[2019-07-01] MEDS ORDERED: Morphine 4 MG/ML VIAL ONE ×2 (12:28→14:36)
[2019-07-01] MEDS ORDERED: Ondansetron PF 4 MG/2 ML Vial ONE (12:28)
[2019-07-01 12:45] LABS: #Eosinphils 0.1 thou/uL (0.0-0.7); #Lymphocytes 1.3 thou/uL (1.20-3.40); #Monocytes 0.4 thou/uL (0.11-0.59); %Basophils 0.4 % (0.0-1.0); %Eosinophils 0.7 % (0.0-10.0); %Lymphocytes 15.1 % (21.0-51.0); %Monocytes 4.6 % (0.0-10.0); %Neutrophils 79.2 % (42.0-75.0); Hemoglobin 13.6 g/dL (14.0-18.0); Mean Corpuscular HGB CONC 34.2 g/dL (32.0-36.0); Mean Corpuscular Hemoglobin 30.7 pg (27.0-31.0); Mean Corpuscular Volume 89.9 fL (78.0-98.0); Mean Platelet Volume 6.2 fL (7.4-10.4); Platelet Count 523 thou/uL (130-400); RBC Distribution Width 12.1 % (11.5-14.5); Red Blood Cell (RBC) Count 4.44 mill/uL (4.70-6.10); White Blood Cell (WBC) Count 8.8 thou/uL (4.8-10.8)
--- NOTE | 2019-07-01 12:47 | RAD ---
Chest AP view INDICATION: Postop complication COMPARISON: June 18, 2017 FINDINGS: Lungs:The lungs are clear Cardiac silhouette:The cardiomediastinal silhouette appears within normal limits. Pulmonary vasculature:Normal Pleural spaces:No pleural effusion or pneumothorax is demonstrated. Upper abdomen:No abnormality seen. Osseous structures: No acute osseous abnormality. Additional findings:None. IMPRESSION: No acute cardiopulmonary abnormality.
--- NOTE | 2019-07-01 12:56 | RAD ---
XR Foot Rt 3 View STANDARD INDICATION: History of right foot amputation with worsening right foot pain COMPARISON: MR the right foot dated June 15, 2019 right foot radiographs dated June 15 9 FINDINGS: Bones: Interval partial fragmentation of the fifth digit through the proximal fifth digit metatarsal shaft. Joints: Scattered osteoarthrosis. Lisfranc alignment: Lisfranc alignment appears within normal limits. Soft tissues: There is soft tissue wound overlying the dilatation site. IMPRESSION: Interval partial amputation of the fifth digit through the proximal fifth digit metatarsa l shaft. Soft tissue wound overlies the amputation site.
[2019-07-01 13:16] LABS: ALT (SGPT) 20 U/L (8-55); AST (SGOT) 22 U/L (5-34); Albumin 3.1 g/dL (3.5-5.0); Alkaline Phosphatase 294 U/L (40-110); Anion Gap 15 mmol/L (10-20); BUN (Urea Nitrogen) 20 mg/dL (8.4-25.7); Bilirubin, Total 0.3 mg/dL (0.2-1.2); Calc. Creatinine Clearance 0 mL/min (70-130); Calcium 9.3 mg/dL (7.8-10.44); Carbon Dioxide 26 mmol/L (22-29); Chloride 98 mmol/L (98-107); Estimated GFR-MDRD 55; Globulin 3.9 g/dL (2.4-3.5); Glucose 303 mg/dL (70-105); Lipase 9 U/L (8-78); Potassium 4.5 mmol/L (3.5-5.1); Sodium 134 mmol/L (136-145)
[2019-07-01 13:30] LABS: CKMB 1.4 ng/mL (0-6.6)
[2019-07-01 13:35] LABS: Bilirubin Negative (Negative); Blood, Urine 1+ (Negative); Clarity Clear (Clear); Glucose, Urine (Dipstick) Greater than 1000 mg/dL (Negative); Leukocyte Negative Leu/uL (Negative); Nitrite Negative (Negative); Protein, Urine (Dipstick) 600 mg/dL (Neg-Trace); Urobilinogen Normal mg/dL (Less than 2)
[2019-07-01 13:44] LABS: Bacteria/HPF None Seen HPF (None Seen); Squamous Epithelial 0-3 HPF (0-3); WBC/HPF None Seen HPF (0-3)
[2019-07-01] MEDS ORDERED: Nitroglycerin 2% Ointment 1 INCH/1 GM Packet ONE (13:48)
--- NOTE | 2019-07-01 13:56 | CT ---
CT abdomen and pelvis with IV contrast HISTORY: Right lower quadrant pain. COMPARISON: 01/09/2013. FINDINGS: Lung bases are clear. Gallbladder is surgically absent. Tiny calcification within a nondila mina calyx at the midportion left kidney. Calcification throughout the arterial structures. Urinary bladder is unremarkable. No evidence of bowel obstruction. Appendix measures up to 0.9 cm greatest diameter with subtle thickening of the appendiceal wall, flui d distention, and minimal stranding in the adjacent fat. Bilateral spondylolysis with grade 1 spondylolisthesis at the lumbosacral junction is stable. IMPRESSION: Early acute appendicitis. No evidence of complication. Tiny nonobstructing left renal calculus. Atherosclerosis.
[2019-07-01] MEDS ORDERED: Piperacillin/Tazobactam 3.375 GM VIAL ONE (14:35)
[2019-07-01] MEDS ORDERED: Acetaminophen 1,000 MG in Premix Bag 1 BAG IVPB PRN (14:58)
[2019-07-01] MEDS ORDERED: Sodium Chloride 0.9% 1,000 ML IV SCH (15:00)
[2019-07-01] MEDS ORDERED: Acetaminophen 1,000 MG in Premix Bag 1 BAG IVPB SCH (15:00)
[2019-07-01] MEDS ORDERED: Dextrose 50% Abboject 50 ML SYRINGE SLOW IVP PRN (15:02)
[2019-07-01] MEDS ORDERED: Dextrose 5% in Water 1,000 ML IV PRN (15:02)
[2019-07-01] MEDS ORDERED: Acetaminophen 500 MG TAB PO PRN (15:44)
[2019-07-01] MEDS ORDERED: Acetaminophen 500 MG TAB PO SCH (15:45)
[2019-07-01] MEDS ORDERED: Enoxaparin Sodium 80 MG/0.8 ML SYRINGE ONE (16:20)
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
[2019-07-01] MEDS ORDERED: Enoxaparin Sodium 40 MG/0.4 ML SYRINGE SC SCH (21:00)
--- NOTE | 2019-07-01 21:47 | HP ---
CHIEF COMPLAINT: Abdominal pain, nausea, and vomiting for the last few days. HISTORY OF PRESENT ILLNESS: He was just discharged from the hospital where he had amputation done for his osteomyelitis of the fifth toe of the right foot. He was doing quite well until 3 days ago when he started having some nausea, vomiting, abdominal pain. He was not able to keep anything down. He had multiple vomiting episodes and he was not able to go to the vp corporate partnerships appointment, Dr. Sultana and that he came to the emergency room for further evaluation. He was found to have early appendicitis. He is getting admitted to the hospital. He was seen by general surgeon who wants to treat him with IV antibiotics conservatively. Apparently, also he has some chest pain during the en route and he was admitted to the emergency room. While in the EMS vehicle, he was placed on nitroglycerin paste and EKG was done, but it did not show any ST-segment elevation. He was evaluated in the emergency room. PAST MEDICAL HISTORY: 1. Recent right foot fifth toe osteomyelitis status post partial amputation of the fifth digit. 2. Deep vein thrombosis in the right lower extremity. 3. Severe peripheral vascular disease, status post angioplasty of the right popliteal artery and anterior tibial arteries by Dr. Rosales during previous hospitalization. 4. Uncontrolled diabetes mellitus with hemoglobin A1c more than 14. 5. Uncontrolled hypertension. 6. History of gout. 7. History of gastritis. PAST SURGICAL HISTORY: 1. Right knee arthroscopy. 2. Bilateral shoulder surgery. 3. Toe amputation. ALLERGIES: NONE. SOCIAL HISTORY: He smokes a pack of cigarettes per day. He does not drink alcohol. He does not use any illicit drugs. FAMILY HISTORY: Positive for cardiovascular disease. REVIEW OF SYSTEMS: All 14 systems were reviewed and they are positive except for those symptoms mentioned in HPI. PHYSICAL EXAMINATION: VITAL SIGNS: Blood pressure is 175/93, pulse is 95, respiratory rate is 18, O2 saturation is 99%. HEENT: His head is atraumatic and normocephalic. Eyes are PERRLA. Sclerae are nonicteric. Oral mucosa is dry. NECK: Supple. LUNGS: Clear. HEART: S1 and S2 normal. Somewhat tachycardic. No S3. No S4. ABDOMEN: Soft, tender with some guarding in the right lower quadrant. Bowel sounds sluggish. EXTREMITIES: No clubbing or cyanosis. The right foot lateral aspect is covered with wound VAC dressing. NEUROLOGICAL: He is alert and oriented x4. There are no any motor deficits. LABORATORY DATA: White count of 8.8, hemoglobin of 13.6, hematocrit 40.0, platelet count is 523. Sodium potassium 4.5, chloride 198, CO2 of 26, BUN 20, creatinine 1.34, glucose 303, alkaline phosphatase 294. Troponin I 0.033. Albumin 3.1, globulin 3.9. Urine showed 600 of proteins, glucose greater than 1000, ketones 10, 1+ blood, 4-6 rbc's. The rest of UA within normal limits. EKG personally reviewed by me showed normal sinus rhythm with right bundle-branch block. Right foot x-ray showed partial amputation of the fifth digit through the proximal fifth digit metatarsal shaft. Abdominal and pelvic CT showed early acute appendicitis. Chest x-ray personally reviewed by me showed no acute cardiopulmonary abnormality. IMPRESSION: 1. Early acute appendicitis. 2. Chest pain, rule out acute coronary syndrome. 3. Renal insufficiency that is acute, most likely prerenal secondary to his vomiting. 4. Recent diagnosis of right lower extremity deep vein thrombosis. 5. Type 2 diabetes mellitus, not controlled since he was not able to control his glycemia with protracted nausea, vomiting, and abdominal pain. 6. Hypertension. 7. History of nephrolithiasis. 8. Restless leg syndrome. 9. Hyperlipidemia. PLAN: Admission to the telemetry floor. Full admission. Condition is fair. Activity, bedrest and bathroom privileges. IV normal saline 100 mL/h, IV Zosyn. General Surgery consult. The patient was seen by Dr. Stroud already and he has planned to do antibiotics first before he is going to take him to any surgery and if any Cardiology consultation, we will get two additional sets of troponin I. We will start him on full dose of Lovenox 1 mg/kg every 12 hours since he is not able to keep his Eliquis down secondary to vomiting. We will get a [employer]p [employer] involved in the care of this right foot status post amputation status. We will get wound care to follow and he will be n.p.o. Job ID: [id number]
[2019-07-01 22:04] LABS: CKMB 1.4 ng/mL (0-6.6)
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
[2019-07-01] MEDS: Morphine 2 MG/ML SYRINGE SLOW IVP PRN (22:42)
[2019-07-01] MEDS: Sodium Chloride 0.9% 1,000 ML IV SCH (23:28)
[2019-07-01] MEDS: Nicotine 14 MG PATCH TD SCH (23:32)
[2019-07-01] MEDS: Gabapentin 300 MG CAP PO SCH (23:33)
[2019-07-01] MEDS: Piperacillin/Tazobactam 4.5 GM in Sodium Chloride 0.9% 100 ML IVPB SCH (23:34)
[2019-07-01] MEDS: Lisinopril 20 MG TAB PO SCH (23:34)
[2019-07-01] MEDS: rOPINIRole HCl 0.25 MG TAB PO SCH (23:34)
[2019-07-02] MEDS: Enoxaparin Sodium 80 MG/0.8 ML SYRINGE SC SCH ×3 (00:02→20:49)
[2019-07-02] MEDS: Sodium Chloride 0.9% 1,000 ML IV SCH ×4 (00:04→17:09)
[2019-07-02] MEDS: Morphine 2 MG/ML SYRINGE SLOW IVP PRN ×3 (03:31→20:50)
[2019-07-02] MEDS: Piperacillin/Tazobactam 4.5 GM in Sodium Chloride 0.9% 100 ML IVPB SCH ×4 (03:31→20:49)
[2019-07-02 05:59] LABS: CKMB 1.2 ng/mL (0-6.6)
[2019-07-02 06:10] LABS: #Eosinphils 0.1 thou/uL (0.0-0.7); #Lymphocytes 2.1 thou/uL (1.20-3.40); #Monocytes 0.5 thou/uL (0.11-0.59); #Neutrophils 4.6 thou/uL (1.40-6.50); %Basophils 0.4 % (0.0-1.0); %Eosinophils 1.6 % (0.0-10.0); %Lymphocytes 28.7 % (21.0-51.0); %Monocytes 7.1 % (0.0-10.0); %Neutrophils 62.2 % (42.0-75.0); Hemoglobin 10.4 g/dL (14.0-18.0); Mean Corpuscular HGB CONC 34.2 g/dL (32.0-36.0); Mean Corpuscular Hemoglobin 30.8 pg (27.0-31.0); Mean Corpuscular Volume 90.2 fL (78.0-98.0); Mean Platelet Volume 6.2 fL (7.4-10.4); Platelet Count 414 thou/uL (130-400); Red Blood Cell (RBC) Count 3.39 mill/uL (4.70-6.10); White Blood Cell (WBC) Count 7.5 thou/uL (4.8-10.8)
[2019-07-02 06:48] LABS: ALT (SGPT) 13 U/L (8-55); AST (SGOT) 15 U/L (5-34); Albumin 2.4 g/dL (3.5-5.0); Alkaline Phosphatase 192 U/L (40-110); Anion Gap 10 mmol/L (10-20); BUN (Urea Nitrogen) 17 mg/dL (8.4-25.7); Bilirubin, Total 0.3 mg/dL (0.2-1.2); Calc. Creatinine Clearance 71 mL/min (70-130); Calcium 7.9 mg/dL (7.8-10.44); Carbon Dioxide 26 mmol/L (22-29); Chloride 106 mmol/L (98-107); Estimated GFR-MDRD 58; Globulin 3.4 g/dL (2.4-3.5); Glucose 173 mg/dL (70-105); Magnesium 1.6 mg/dL (1.6-2.6); Potassium 3.9 mmol/L (3.5-5.1); Protein, Total 5.8 g/dL (6.0-8.3); Sodium 138 mmol/L (136-145)
[2019-07-02] MEDS: Pantoprazole 40 MG VIAL IVP SCH (09:07)
[2019-07-02] MEDS: Aspirin 81 mg Enteric Coated Tablet PO SCH (09:08)
[2019-07-02] MEDS: Gabapentin 300 MG CAP PO SCH ×3 (09:08→20:49)
[2019-07-02] MEDS: Amlodipine 10 MG TAB PO SCH (09:08)
[2019-07-02] MEDS: rOPINIRole HCl 0.25 MG TAB PO SCH ×3 (09:08→20:50)
[2019-07-02] MEDS: Pregabalin 75 MG CAP PO SCH (09:13)
--- NOTE | 2019-07-02 10:31 | PRG ---
DATE OF SERVICE: 07/02/2019 SUBJECTIVE: Kyle Flores is scheduled for laparoscopic appendectomy this morning. It was felt his blood pressure was out of control due to him not being able to take his medications due to his nausea and vomiting, which may be due to gastroparesis, which he has had problems with before. The patient is scheduled for a stress test today. I talked to Dr. Keys yesterday proceed with laparoscopic video appendectomy today, but since he has full-dose Lovenox, we will postpone that to later in the day and allow him to have his stress test first. We will hold his Lovenox for now. Job ID: [id number]
[2019-07-02] MEDS: Lisinopril 20 MG TAB PO SCH ×2 (10:45→20:49)
[2019-07-02] MEDS ORDERED: Regadenoson 0.4 MG/5 ML SYRINGE ONE (11:05)
[2019-07-02] MEDS: hydrALAZINE 20 MG/ML VIAL SLOW IVP PRN ×2 (13:50→23:27)
--- NOTE | 2019-07-02 14:18 | PRG ---
DATE OF SERVICE: 07/02/2019 SUBJECTIVE: He complains about some abdominal pain and pain in his right foot. Apparently, he is supposed to have surgery for his appendicitis either later today after he has his stress test done, if it is negative, or tomorrow morning. This is going to be decided upon by general surgeon, Dr. Stroud. OBJECTIVE: VITAL SIGNS: Blood pressure is 189/91, pulse is 85, temperature 98.4, respiratory rate is 18, O2 saturation is 98% on room air. HEENT: His eyes are PERRLA. Sclerae are nonicteric. Oral mucosa is dry. NECK: Supple. LUNGS: Clear. HEART: S1 and S2 are normal. No S3. No S4. ABDOMEN: Tender in right lower quadrant area. There is some rebound present. Bowel sounds sluggish. EXTREMITIES: Right foot with wound VAC dressing. NEUROLOGIC: He is alert and oriented x4. There are no any motor deficits at this point. LABORATORY DATA: Showed white count of 7.5, hemoglobin 10.4, hematocrit 30.6, platelet count 414. Normal electrolytes. Creatinine 1.28, glucose 173. Troponins 0.033, 0.043, and 0.051, which are indeterminate level. Total serum protein 5.8, and albumin 2.4. IMPRESSION AND PLAN: 1. Early acute appendicitis, treated with IV antibiotics and scheduled for surgery, awaiting cardiac clearance. 2. Chest pain. His 3 troponin levels are indeterminate. Cardiology is on the case. Stress test to be done this afternoon, supervised by Dr. Keys. If he is good to go, he will have either this evening surgery or tomorrow morning. This is going to be decided on by Dr. Stroud. 3. Renal insufficiency, improved with IV fluids. 4. Recent diagnosis of right lower extremity deep venous thrombosis. The patient was on apixaban before the hospitalization, and he is switched to subcutaneous Lovenox for now. 5. Type 2 diabetes mellitus. Accu-Cheks q.6 and coverage with sliding scale. 6. Hypertension. 7. History of nephrolithiasis. 8. Restless legs syndrome. 9. Hyperlipidemia. As mentioned above, he is awaiting his stress test, then surgery after that. We will continue his IV fluids for now. We will start him on hydralazine 10 mg every 4 hours p.r.n. as needed for systolic blood pressure more than 160 and diastolic blood pressure more than 100. He will continue n.p.o. status, and he is going to take his home medications with small sips of water. Job ID: [id number]
[2019-07-02] MEDS ORDERED: Glycopyrrolate 0.2 MG/ML 5 ML SYRINGE ONE (14:20)
[2019-07-02] MEDS ORDERED: Ondansetron PF 4 MG/2 ML Vial ONE (14:20)
[2019-07-02] MEDS ORDERED: Succinylcholine Chloride 20 MG/ML 10 ml SYRINGE FS ONE (14:20)
[2019-07-02] MEDS ORDERED: ePHEDrine 50 MG/ML VIAL ONE (14:20)
[2019-07-02] MEDS ORDERED: Lidocaine 1% PF 5 ML VIAL ONE (14:20)
[2019-07-02] MEDS ORDERED: PROPOFOL 200 MG/20 ML VIAL ONE (14:20)
[2019-07-02] MEDS ORDERED: PHENYLEPHRINE-NS 100 MCG/ML 10 ML SYRINGE ONE (14:20)
[2019-07-02] MEDS ORDERED: Rocuronium Bromide 10 MG/ML (10ML VIAL) ONE (14:20)
--- NOTE | 2019-07-02 16:46 | NM ---
EXAM: NM Cardiac Stress W EF WF PROVIDED CLINICAL HISTORY: Chest pain COMPARISON: None RADIOPHARMACEUTICAL: 27 millicuries technetium 99m labeled sestamibi IV stress 10 millicuries technetium 99m labeled sestamibi IV rest FINDINGS: There is diminished radiotracer accumulation involving the basal to apical inferior wall at both stre ss and rest. There is conspicuous return of radiotracer activity on the attenuation corrected images compatible with diaphragmatic attenuation. There is no significant asymmetric wall thickening impairment or immobility in this region to suggest scar. There is otherwise normal, homogeneous distribution of radiotracer throughout the left ventricular myocardium. Gated data demonstrate global hypokinesis asymmetrically affecting the septum with calculated LVEF of 42%. TID is 1.12. [<>]. IMPRESSION: 1. No scintigraphic evidence for ischemia. 2. Calculated LVEF 42%.
[2019-07-02] MEDS ORDERED: Fentanyl 100 MCG/2 ML VIAL ONE ×3 (16:49→18:14)
[2019-07-02] MEDS ORDERED: HYDROmorphone 0.5 MG/0.5 ML SYRINGE ONE ×2 (16:50→16:53)
[2019-07-02] MEDS ORDERED: Midazolam HCl 2 mg/2 ml Vial ONE (16:51)
[2019-07-02] MEDS ORDERED: Bupivacaine HCl 0.5%/Epinephrine 1:200,000/PF 30 ml Vial ONE ×2 (16:56)
[2019-07-02] MEDS: Nicotine 14 MG PATCH TD SCH (17:02)
[2019-07-02] MEDS ORDERED: HYDROmorphone 2 MG/ML VIAL SLOW IVP PRN (17:58)
[2019-07-02] MEDS ORDERED: Promethazine HCl 25 MG/ML VIAL IM PRN (17:58)
[2019-07-02] MEDS ORDERED: PACU-Morphine 4MG/ML VIAL SLOW IVP PRN (17:58)
[2019-07-02] MEDS ORDERED: Promethazine HCl 25 MG/ML VIAL SLOW IVP PRN (17:58)
[2019-07-02] MEDS ORDERED: Ondansetron HCl/PF 4 MG/2 ML Vial IVP PRN (17:58)
--- NOTE | 2019-07-02 17:58 | PDOC.CPN ---
- Subjective Date: 07/02/19 Time: 17:58 Interval history: No current complaints. Troponin minimally BL. EKG WNL - Objective Allergies/Adverse Reactions: Allergies Allergy/AdvReac Type Severity Reaction Status Date / Time No Known Drug Allergies Allergy Verified 07/01/19 21:57 Visit Medications: Current Medications Amlodipine Besylate (Norvasc) 10 mg PO DAILY [facility] Last Admin: 07/02/19 09:08 Dose: 10 mg Aspirin (Ecotrin) 81 mg PO DAILY [facility] Last Admin: 07/02/19 09:08 Dose: 81 mg Dextrose/Water (Dextrose 50%) 25 gm SLOW IVP PRN PRN PRN Reason: Hypoglycemia Enoxaparin Sodium (Lovenox) 80 mg SC 0900,2100 [facility] Last Admin: 07/02/19 09:07 Dose: 80 mg Gabapentin (Neurontin) 900 mg PO TID [facility] Last Admin: 07/02/19 14:03 Dose: 900 mg Glucagon (Glucagon) 1 mg IM PRN PRN PRN Reason: Hypoglycemia Hydralazine HCl (Apresoline) 10 mg SLOW IVP Q4H PRN PRN Reason: Hypertension Last Admin: 07/02/19 13:50 Dose: 10 mg Dextrose/Water (D5w) 1,000 mls @ 0 mls/hr IV .Q0M PRN PRN Reason: Hypoglycemia Sodium Chloride (Normal Saline 0.9%) 1,000 mls @ 150 mls/hr IV .Q6H40M [facility] Last Admin: 07/02/19 17:09 Dose: Not Given Piperacillin Sod/Tazobactam (Sod 4.5 gm/ Sodium Chloride) 100 mls @ 200 mls/hr IVPB 0300,0900,1500,2100 [facility] Last Admin: 07/02/19 14:02 Dose: 100 mls Insulin Human Lispro (Humalog) 0 units SC .MODERATE SLIDING SC PRN PRN Reason: Moderate Correctional Scale Lisinopril (Zestril) 20 mg PO BID [facility] Last Admin: 07/02/19 10:45 Dose: Not Given Morphine Sulfate (Morphine) 2 mg SLOW IVP Q4H PRN PRN Reason: Moderate Pain (4-6) Last Admin: 07/02/19 13:48 Dose: 2 mg Morphine Sulfate (Morphine) 4 mg SLOW IVP Q4H PRN PRN Reason: Severe Pain (7-10) Nicotine (Nicoderm Patch) 14 mg TD Q24HR [facility] Last Admin: 07/02/19 17:02 Dose: Not Given Pantoprazole Sodium (Protonix) 40 mg IVP DAILY [facility] Last Admin: 07/02/19 09:07 Dose: 40 mg Pregabalin (Lyrica) 300 mg PO DAILY [facility] Last Admin: 07/02/19 09:13 Dose: 300 mg Ropinirole HCl (Requip) 0.25 mg PO TID [facility] Last Admin: 07/02/19 14:03 Dose: 0.25 mg Tramadol HCl (Ultram) 100 mg PO Q6H PRN PRN Reason: .BREAKTHROUGH PAIN Vital Signs & Weight: Vital Signs Temp Pulse Resp BP BP Pulse Ox 07/02/19 13:50 85 192/91 H 07/02/19 13:33 97.9 F 83 17 183/94 H 98 07/02/19 07:58 98.4 F 85 18 189/91 H 98 Admit Weight 172 lb 6.4 oz Weight 172 lb 6.4 oz - Physical Exam General: alert & oriented x3 Neck: no JVD/HJR, no masses Cardiac: no murmur, regular rate Lungs: normal exam Neuro: grossly intact Abdomen: soft Skin: clear Musculoskeletal: no pain - Labs Result Diagrams: 07/02/19 04:52 07/02/19 04:52 Troponin/CKMB CK-MB (CK-2) 1.2 ng/mL (0-6.6) 07/02/19 04:52 Troponin I 0.051 ng/mL (< 0.028) H 07/02/19 04:52 - Assessment/Plan Assessment/Plan: Preop clearance CP DM PVD Pt with no ischemia on stress terst EF 42% Given EKG findings and minimal BL troponin, will clear for surgery. Benefits outweigh the risks
[2019-07-02] MEDS ORDERED: Ondansetron ODT 8 MG TAB PO PRN (18:11)
[2019-07-02] MEDS ORDERED: Acetaminophen 1,000 MG in Premix Bag 1 BAG IVPB PRN (18:11)
--- NOTE | 2019-07-02 20:52 | RAD ---
Radiograph right foot 3 views: DATE: 07/02/2019 HISTORY: 54-year-old male status post subtotal amputation of right fifth ray. Pain. COMPARISON: 07/01/2019 FINDINGS: There has been amputation at proximal diaphysis of fifth metatarsal. At the amputation site, there is an 8 x 2 mm osseous fragment. Large soft tissue defect associated with the amputation. No interval change overall. IMPRESSION: 1. Status post amputation at proximal shaft of fifth metatarsal. 2. No interval change since yesterday.
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
--- NOTE | 2019-07-03 00:11 | OP ---
DATE OF PROCEDURE: 07/02/2019 PREOPERATIVE DIAGNOSES: Appendicitis, hypertension uncontrolled. POSTOPERATIVE DIAGNOSES: Appendicitis, hypertension uncontrolled. PROCEDURE PERFORMED: Laparoscopic video appendectomy. ANESTHESIA: General, local 0.5% Marcaine with epinephrine, 30 mL. INDICATIONS FOR PROCEDURE: The patient presented to the hospital with elevated troponins, episode of chest pain and abdominal pain. CAT scan revealed appendicitis. He had his hypertension is out of control and he is clearly dehydrated with chronic kidney disease. He was hospitalized overnight with an intravenous antibiotics, underwent a cardiac stress test that did not reveal a bursal ischemia. He is thus taken to the operating room for an appendectomy. DESCRIPTION OF PROCEDURE: The patient was taken to the operating room, where under general anesthesia, Rodriguez catheter placed at the beginning of the procedure, removed at the end. Abdomen was clipped of hair, prepared with ChloraPrep and draped in routine fashion. A 0.5% Marcaine with epinephrine infiltrated into the skin and subcutaneous tissue at each port site, total volume of 30 mL used. Infraumbilical incision made, pneumoperitoneum to 15 mmHg was obtained with a Veress needle, replaced with a 5 port, video laparoscope inserted. Suprapubic incision was made and a 12 port placed. Right lateral subcostal incision made and a 5 port placed. Appendix was slightly indurated. I did not see any inflammatory changes. The tip of the appendix was adherent to the right colon mesentery laterally. The mesoappendix taken down with the LigaSure. The stump of the appendix divided with Endo-JO blue load stapler. Stapled cecal stump was hemostatic and secured. His appendix was removed and submitted to Pathology. Good hemostasis was noted. Pneumoperitoneum reduced. All instruments were removed and all skin incisions were approximated with interrupted subdermal 4-0 Monocryl after suprapubic fascia was approximated with 0 Vicryl. Job ID: [id number]
[2019-07-03] MEDS: Piperacillin/Tazobactam 4.5 GM in Sodium Chloride 0.9% 100 ML IVPB SCH ×4 (02:19→22:08)
--- NOTE | 2019-07-03 03:07 | CON ---
DATE OF CONSULTATION: 07/02/2019 HISTORY OF PRESENT ILLNESS: This is a 54-year-old male, seen today in the hospital in consultation for non-healing status post partial fifth ray resection, right foot. The patient was admitted originally on July 01 for fever, nausea, and vomiting. He underwent an appendectomy tonight, July 02, and currently recovering in the PACU area. The patient claims he had surgery [address] Sultana on June 19, 2019, underwent a partial fifth ray resection and amputation with toe amputation. The patient was placed on a wound VAC. The patient states that he started to develop some pain and discomfort this weekend. When he was admitted, the dressing was removed, and the wound was noted to be necrotic, dark, black in nature with significant overlying nonviable tissue. The Podiatry consult was made. The patient also claims that 2 weeks ago, approximately at the time of the surgery, he also underwent an angioplasty, revascularization of the right lower extremity by Dr. Rosales here at [facility]. PAST MEDICAL HISTORY: Significant for gout, blood pressure, high cholesterol, diabetes, and kidney disease. MEDICATIONS: Noted in chart. ALLERGIES: NO DRUG ALLERGIES. SOCIAL HISTORY: The patient has positive tobacco use. No alcohol use. No recreational drugs. FAMILY HISTORY: Positive for kidney disease and diabetes. REVIEW OF SYSTEMS: Noted in chart. PHYSICAL EXAMINATION: EXTREMITIES: Lower extremities, vascular status shows 2/4 dorsalis pedis pulses in bilateral lower extremities; 0/4 on the left, and 1/4 on the right posterior tibial pulses bilaterally. Skin temperature is cold to cool proximal to distal. Hair growth is absent. Rubor, edemic type foot is noted in bilateral lower extremities. NEUROLOGIC: Epicritic sensation is reduced. Protected threshold is reduced significantly with 5.07 monofilament wire in bilateral lower extremities. MUSCULOSKELETAL: Reveals 5/5 muscle gradient in bilateral lower extremities. A partial fifth ray resection of the right foot noted on examination. DERMATOLOGIC: Shows status post partial fifth ray resection of the right foot, exposed open wound with overlying dark eschar, well adhered, black, nonviable tissue to underlying granular red tissue base. There were no acute signs of infection. Positive pain noted on palpation to the area. There was mild erythema and edema noted to the anibal-margins of the surgical site, all indicative of inflammatory healing properties. Again, no cellulitis noted, or underlying abscess, or acute infection noted at the time of exam. ASSESSMENT AND PLAN: 1. Diabetes with neuropathy and underlying peripheral arterial disease. As stated, Dr. Rosales has already performed a right lower extremity revascularization 2 weeks ago. 2. Status post partial fifth ray resection of right foot, nonhealing in nature x2 weeks. The patient at this time will do best with sharp debridement of the surgical sites to remove all necrotic nonviable tissues, stimulate viable bleeding tissue. I won't recommend a wound VAC, I believe it was too demanding for healing potential. The plan is to debride the wound tomorrow in the OR and start on wound care with hydrogel-based ointment and wet-to-dry dressings daily. 3. The patient is currently on Zosyn IV antibiotics, which he is to continue and x-rays 3 views of the right foot were ordered to rule out any further osseous abnormalities and to assess surgical amputation, fifth ray partial resection. The [facility] was notified. N.p.o. status will be started at 10 a.m. tomorrow. Consent form was written and the patient was scheduled for surgery tomorrow. If there are any questions or concerns, please call me at [phone]. Job ID: [id number]
[2019-07-03 05:07] LABS: #Basophils 0.1 thou/uL (0.0-0.2); #Eosinphils 0.1 thou/uL (0.0-0.7); #Lymphocytes 1.7 thou/uL (1.20-3.40); #Monocytes 0.8 thou/uL (0.11-0.59); #Neutrophils 6.2 thou/uL (1.40-6.50); %Basophils 0.9 % (0.0-1.0); %Eosinophils 1.2 % (0.0-10.0); %Lymphocytes 18.8 % (21.0-51.0); %Monocytes 9.2 % (0.0-10.0); %Neutrophils 69.9 % (42.0-75.0); Hemoglobin 11.1 g/dL (14.0-18.0); Mean Corpuscular HGB CONC 33.6 g/dL (32.0-36.0); Mean Corpuscular Hemoglobin 30.7 pg (27.0-31.0); Mean Corpuscular Volume 91.4 fL (78.0-98.0); Mean Platelet Volume 6.5 fL (7.4-10.4); Platelet Count 381 thou/uL (130-400); RBC Distribution Width 12.2 % (11.5-14.5); Red Blood Cell (RBC) Count 3.61 mill/uL (4.70-6.10); White Blood Cell (WBC) Count 8.9 thou/uL (4.8-10.8)
[2019-07-03 05:13] LABS: Anion Gap 12 mmol/L (10-20); BUN (Urea Nitrogen) 15 mg/dL (8.4-25.7); Calc. Creatinine Clearance 59 mL/min (70-130); Carbon Dioxide 22 mmol/L (22-29); Chloride 106 mmol/L (98-107); Estimated GFR-MDRD 47; Potassium 3.6 mmol/L (3.5-5.1); Sodium 136 mmol/L (136-145)
[2019-07-03 05:14] LABS: Calcium 7.9 mg/dL (7.8-10.44); Glucose 236 mg/dL (70-105)
[2019-07-03] MEDS: Sodium Chloride 0.9% 1,000 ML IV SCH ×3 (06:20→13:45)
[2019-07-03] MEDS: Morphine 2 MG/ML SYRINGE SLOW IVP PRN ×2 (06:26→17:23)
[2019-07-03] MEDS: Aspirin 81 mg Enteric Coated Tablet PO SCH (07:44)
[2019-07-03] MEDS: rOPINIRole HCl 0.25 MG TAB PO SCH ×3 (07:44→22:08)
[2019-07-03] MEDS: Lisinopril 20 MG TAB PO SCH ×2 (07:44→22:08)
[2019-07-03] MEDS: traMADol HCl 50 MG TAB PO PRN ×2 (07:45→22:07)
[2019-07-03] MEDS: Gabapentin 300 MG CAP PO SCH ×3 (07:45→22:05)
[2019-07-03] MEDS: Amlodipine 10 MG TAB PO SCH (07:45)
[2019-07-03] MEDS: Pantoprazole 40 MG VIAL IVP SCH (09:02)
[2019-07-03] MEDS: Enoxaparin Sodium 80 MG/0.8 ML SYRINGE SC SCH ×2 (09:02→22:06)
[2019-07-03] MEDS: Pregabalin 75 MG CAP PO SCH (09:24)
[2019-07-03] MEDS: hydrALAZINE 20 MG/ML VIAL SLOW IVP PRN (12:10)
[2019-07-03] MEDS ORDERED: cloNIDine 0.1 MG TAB PO PRN (12:32)
--- NOTE | 2019-07-03 13:36 | PQF ---
CLINICAL DOCUMENTATION IMPROVEMENT CLARIFICATION FORM: ICD-10 Updated PLEASE DO AN ADDENDUM TO THE PROGRESS NOTE WITH ANY DOCUMENTATION UPDATES OR ADDITIONS AND CARRY THROUGH TO DC SUMMARY. THANK YOU. DATE: 07/03/2019 ATTN: Dr. Sanchez Please exercise your independent, professional judgment in responding to the clarification form. Clinical indicators are provided on the bottom of this form for your review Please check appropriate box(s): [ ] Acute Renal Failure (ARF) / Acute Kidney Injury (BELKYS) [ ] Acute on Chronic Renal Failure please specify Stage of CKD (see below) [ ] CKD without ARF/BELKYS please specify Stage of CKD [ ] Other diagnosis [ ] Unable to determine In addition, please specify: Present on Admission (POA): [ ] Yes [ ] No [ ] Unable to determine For continuity of documentation, please document condition throughout progress notes and discharge summary. Thank You. CLINICAL INDICATORS - SIGNS / SYMPTOMS / LABS H&P 07/01: Creatinine 1.34 Renal insufficiency that is acute, most likely prerenal secondary to his vomiting. PN 07/02: Renal insufficiency, improved with IV fluids. 07/02 07/03 LABS: Creatinine 1.28 1.55 Estimated GFR 58 47 RISKS: H&P 07/01: Early acute appendicitis. Type 2 diabetes mellitus, not controlled since he was not able to control his glycemia with protracted nausea, vomiting and abdominal pain. HTN TREATMENT: MAR: Order 07/01-07/03: NS IV 150 mls/hr MAR: Order 07/03: NS IV 70mls/hr Lab Order for BMP 07/02, 07/03, 07/04 National Kidney Foundation Guidelines for CKD Staging Stage I Kidney damage with normal or increased GFR GFR > 90 Stage II Kidney damage with mildly decreased GFR GFR 60-89 Stage III Kidney damage with moderately decreased GFR GFR 30-59 Stage IV Kidney damage with severely decreased GFR GFR 16-29 Stage V Kidney failure GFR<15 ESRD End Stage Renal Disease On dialysis Acute Renal Failure/Acute Kidney Failure defined as: Increases in SCr by (>) 0.3 mg/dl within 48 hours OR- Increases in SCr by (>) 1.5 times baseline, known or presumed to have occurred within the prior 7 days OR- Urine volume < 0.5 ml/kg/hour for 6 hours (KDIGO supplement 2012 for RIFLE/NIXON criteria) Thank you, Iris (This form is maintained as a part of the permanent medical record) 2014 [employer]. All Rights Reserved Iris Adams RN, BSN [email or web address] Office: [phone] [facility] HEALTH SYSTEMBritni
--- NOTE | 2019-07-03 15:53 | PDOC.HOSPP ---
- Subjective Encounter Date: 07/03/19 Encounter Time: 13:30 Subjective: Patient seen and examined for multiple issues. Abd pain improving. Tolerating PO intake. No fever or chills. No new complaints. No overnight events - Objective Vital Signs & Weight: Vital Signs (12 hours) Temp Pulse Resp BP BP Pulse Ox 07/03/19 15:27 97.9 F 91 16 165/78 H 98 07/03/19 14:14 90 169/81 H 98 07/03/19 12:10 88 190/90 H 07/03/19 11:55 98.2 F 97 16 184/89 H 95 07/03/19 09:05 104 H 171/83 H 98 07/03/19 07:44 205/89 H 07/03/19 07:17 98.4 F 93 18 196/88 H 100 07/03/19 04:00 97.6 F 89 18 166/74 H 98 Weight Admit Weight 172 lb 6.4 oz Weight 172 lb 8 oz Result Diagrams: 07/03/19 04:35 07/03/19 04:35 Additional Labs: Accuchecks 07/03/19 07/03/19 07/02/19 10:43 05:39 23:54 POC Glucose 285 H 243 H 219 H 07/02/19 19:09 POC Glucose 181 H Laboratory Tests 06/20/19 04:21 Hemoglobin A1c Greater than 14.0 H EKG Reviewed by me: Yes (Tele SR) Hospitalist ROS - Review of Systems Respiratory: denies: cough, dry, shortness of breath, hemoptysis, SOB with excertion, pleuritic pain, sputum, wheezing, other Cardiovascular: denies: chest pain, palpitations, orthopnea, paroxysmal noc. dyspnea, edema, light headedness, other - Medication Medications: Active Medications Generic Name Dose Route Start Last Admin Trade Name Freq PRN Reason Stop Dose Admin Amlodipine Besylate 10 mg 07/02/19 09:00 07/03/19 07:45 Norvasc PO 10 mg DAILY DARRYN Administration Aspirin 81 mg 07/02/19 09:00 07/03/19 07:44 Ecotrin PO 81 mg DAILY DARRYN Administration Enoxaparin Sodium 80 mg 07/01/19 21:00 07/03/19 09:02 Lovenox SC 80 mg 0900,2100 DARRYN Administration Gabapentin 900 mg 07/01/19 21:00 07/03/19 14:15 Neurontin PO 900 mg TID DARRYN Administration Hydralazine HCl 10 mg 07/02/19 13:29 07/03/19 12:10 Apresoline SLOW IVP 10 mg Q4H PRN Administration Hypertension Piperacillin Sod/Tazobactam 100 mls @ 200 mls/hr 07/01/19 21:00 07/03/19 14: 15 Sod 4.5 gm/ Sodium Chloride IVPB 100 mls 0300,0900,1500,2100 DARRYN Administration Sodium Chloride 1,000 mls @ 70 mls/hr 07/03/19 12:33 07/03/19 13:45 Normal Saline 0.9% IV Not Given .[id number] DARRYN Lisinopril 20 mg 07/01/19 21:00 07/03/19 07:44 Zestril PO 20 mg BID DARRYN Administration Morphine Sulfate 2 mg 07/01/19 14:58 07/03/19 06:26 Morphine SLOW IVP 2 mg Q4H PRN Administration Moderate Pain (4-6) Nicotine 14 mg 07/01/19 17:00 07/02/19 17:02 Nicoderm Patch TD Not Given Q24HR DARRYN Pantoprazole Sodium 40 mg 07/02/19 09:00 07/03/19 09:02 Protonix IVP 40 mg DAILY DARRYN Administration Pregabalin 300 mg 07/02/19 09:00 07/03/19 09:24 Lyrica PO 300 mg DAILY DARRYN Administration Ropinirole HCl 0.25 mg 07/01/19 21:00 07/03/19 14:15 Requip PO 0.25 mg TID DARRYN Administration Tramadol HCl 100 mg 07/01/19 15:03 07/03/19 07:45 Ultram PO 100 mg Q6H PRN Administration .BREAKTHROUGH PAIN - Exam General Appearance: NAD Heart: RRR, no gallops Respiratory: CTAB, no rales Gastrointestinal: soft, non-distended, normal bowel sounds Extremities: no edema Neurological: no new deficit Psychiatric: normal affect, A&O x 3 Hosp A/P - Plan Diabetic foot infection Acute appendicitis s/p surgery DM2 uncontrolled BELKYS on CKD2 PVD HTN uncontrolled GERD h/o DVT - on Lovenox Mod PEM PLAN: I&D for foot infection today Cont IV Zosyn Reduce IVF to 70 Add NPH 10 units BID Add Hydralazine Cont wound care Cont current HTN meds AM labs
[2019-07-03] MEDS: Nicotine 14 MG PATCH TD SCH (17:25)
[2019-07-03] MEDS: HumaLOG 300 UNITS/3 ML VIAL SC PRN (17:38)
--- NOTE | 2019-07-03 17:45 | PRG ---
DATE OF SERVICE: 07/03/2019 SUBJECTIVE: Kyle Flores is doing well today. There are plan on debriding his foot. He is doing well after laparoscopic appendectomy. OBJECTIVE: VITAL SIGNS: Temperature 97.9 and blood pressure 165/78. He tolerated his diet last night. LABORATORY DATA: White count 8 and hemoglobin 11. Basic metabolic profile normal. GFR 47, creatinine 1.55. Pathology pending. ASSESSMENT AND PLAN: 1. Peripheral arterial disease with open wound foot. Dr. Luther Cramer to debride his foot today. 2. Status post laparoscopic appendectomy and diet as tolerated. Activity as tolerated. I will see him as needed. He should follow up in my office in 2 to 3 weeks. 3. Uncontrolled hypertension, nausea, vomiting per Medical, probably is contributed to gastroparesis, which he has been told he has before. Job ID: [id number]
[2019-07-03] MEDS: hydrALAZINE 25 MG TAB PO SCH (22:07)
[2019-07-03] MEDS: NPH, Human Insulin Isophane 300 UNIT/3 ML VIAL SC SCH (22:10)
[2019-07-04] MEDS: Piperacillin/Tazobactam 4.5 GM in Sodium Chloride 0.9% 100 ML IVPB SCH ×4 (02:18→20:38)
[2019-07-04] MEDS: Sodium Chloride 0.9% 1,000 ML IV SCH ×2 (02:19→16:10)
[2019-07-04 05:00] LABS: #Basophils 0.1 thou/uL (0.0-0.2); #Eosinphils 0.2 thou/uL (0.0-0.7); #Lymphocytes 1.7 thou/uL (1.20-3.40); #Monocytes 0.6 thou/uL (0.11-0.59); #Neutrophils 4.3 thou/uL (1.40-6.50); %Basophils 0.8 % (0.0-1.0); %Eosinophils 3.5 % (0.0-10.0); %Lymphocytes 24.4 % (21.0-51.0); %Monocytes 8.6 % (0.0-10.0); %Neutrophils 62.8 % (42.0-75.0); Hemoglobin 10.8 g/dL (14.0-18.0); Mean Corpuscular HGB CONC 33.4 g/dL (32.0-36.0); Mean Corpuscular Hemoglobin 30.4 pg (27.0-31.0); Mean Platelet Volume 6.4 fL (7.4-10.4); Platelet Count 314 thou/uL (130-400); RBC Distribution Width 12.2 % (11.5-14.5); Red Blood Cell (RBC) Count 3.56 mill/uL (4.70-6.10); White Blood Cell (WBC) Count 6.9 thou/uL (4.8-10.8)
[2019-07-04 05:22] LABS: Anion Gap 13 mmol/L (10-20); BUN (Urea Nitrogen) 12 mg/dL (8.4-25.7); Calc. Creatinine Clearance 52 mL/min (70-130); Calcium 7.9 mg/dL (7.8-10.44); Carbon Dioxide 22 mmol/L (22-29); Chloride 108 mmol/L (98-107); Estimated GFR-MDRD 40; Glucose 164 mg/dL (70-105); Potassium 3.5 mmol/L (3.5-5.1); Sodium 139 mmol/L (136-145)
[2019-07-04] MEDS: NPH, Human Insulin Isophane 300 UNIT/3 ML VIAL SC SCH ×2 (08:01→20:38)
[2019-07-04] MEDS: Enoxaparin Sodium 80 MG/0.8 ML SYRINGE SC SCH ×2 (08:01→20:33)
[2019-07-04] MEDS: Pantoprazole 40 MG VIAL IVP SCH ×2 (08:59→09:00)
[2019-07-04] MEDS: Amlodipine 10 MG TAB PO SCH (09:04)
[2019-07-04] MEDS: hydrALAZINE 25 MG TAB PO SCH ×2 (09:05→20:34)
[2019-07-04] MEDS: Lisinopril 20 MG TAB PO SCH ×2 (09:05→20:34)
[2019-07-04] MEDS: Morphine 2 MG/ML SYRINGE SLOW IVP PRN (09:05)
[2019-07-04] MEDS: Ondansetron PF 4 MG/2 ML Vial IVP PRN (09:08)
[2019-07-04] MEDS ORDERED: Ropivacaine 0.5% HCl/PF (150 MG/30 ML VIAL) ONE (10:45)
[2019-07-04] MEDS ORDERED: Midazolam HCl 5 mg/5 ml Vial ONE (12:54)
[2019-07-04] MEDS ORDERED: Fentanyl 100 MCG/2 ML VIAL ONE (12:54)
[2019-07-04] MEDS ORDERED: Ondansetron HCl/PF 4 MG/2 ML Vial IVP PRN ×2 (13:35→14:01)
[2019-07-04] MEDS ORDERED: Promethazine HCl 25 MG/ML VIAL SLOW IVP PRN (14:01)
[2019-07-04] MEDS ORDERED: Promethazine HCl 25 MG/ML VIAL IM PRN (14:01)
[2019-07-04] MEDS: Gabapentin 300 MG CAP PO SCH ×3 (15:29→20:34)
[2019-07-04] MEDS: Aspirin 81 mg Enteric Coated Tablet PO SCH (15:29)
[2019-07-04] MEDS: rOPINIRole HCl 0.25 MG TAB PO SCH ×3 (15:29→20:34)
[2019-07-04] MEDS: Pregabalin 75 MG CAP PO SCH (15:31)
[2019-07-04] MEDS: Nicotine 14 MG PATCH TD SCH (16:43)
[2019-07-04] MEDS: HYDROcodone/Acetaminophen 7.5/325 mg Tablet PO PRN ×2 (16:44→22:09)
[2019-07-04] MEDS: HumaLOG 300 UNITS/3 ML VIAL SC PRN (18:38)
--- NOTE | 2019-07-04 22:30 | PDOC.HOSPP ---
- Subjective Encounter Date: 07/04/19 Encounter Time: 16:00 Subjective: Patient seen and examined for abd pain/diabetic foot infection. No new complaints. No overnight events - Objective Vital Signs & Weight: Vital Signs (12 hours) Temp Pulse Resp BP Pulse Ox 07/04/19 15:10 94 139/87 07/04/19 14:40 97.6 F 95 16 186/88 H 99 07/04/19 10:55 87 18 178/86 H Weight Admit Weight 172 lb 6.4 oz Weight 172 lb 8 oz I&O: 07/03/19 07/04/19 07/05/19 06:59 06:59 06:59 Intake Total 1440 1450 Output Total 1910 1800 Balance -470 -350 Result Diagrams: 07/04/19 04:44 07/04/19 04:44 Additional Labs: Accuchecks 07/04/19 07/04/19 07/04/19 20:12 17:20 11:02 POC Glucose 294 H 253 H 141 H 07/04/19 05:21 POC Glucose 149 H EKG Reviewed by me: Yes (Tele SR) Hospitalist ROS - Review of Systems Respiratory: denies: cough, dry, shortness of breath, hemoptysis, SOB with excertion, pleuritic pain, sputum, wheezing, other Cardiovascular: denies: chest pain, palpitations, orthopnea, paroxysmal noc. dyspnea, edema, light headedness, other - Medication Medications: Active Medications Generic Name Dose Route Start Last Admin Trade Name Freq PRN Reason Stop Dose Admin Hydrocodone Bitart/Acetaminophen 1 tab 07/04/19 14:31 07/04/19 22:09 [place] 7.5/325 PO 1 tab Q4H PRN Administration Pain Amlodipine Besylate 10 mg 07/02/19 09:00 07/04/19 09:04 Norvasc PO 10 mg DAILY DARRYN Administration Aspirin 81 mg 07/02/19 09:00 07/04/19 15:29 Ecotrin PO Not Given DAILY DARRYN Clonidine 0.1 mg 07/03/19 12:32 07/03/19 17:23 Catapres PO 0.1 mg Q4H PRN Administration SBP Greater Than 180 Enoxaparin Sodium 80 mg 07/01/19 21:00 07/04/19 20:33 Lovenox SC 80 mg 0900,2100 DARRYN Administration Gabapentin 900 mg 07/01/19 21:00 07/04/19 20:34 Neurontin PO 900 mg TID DARRYN Administration Hydralazine HCl 10 mg 07/02/19 13:29 07/03/19 12:10 Apresoline SLOW IVP 10 mg Q4H PRN Administration Hypertension Hydralazine HCl 25 mg 07/03/19 21:00 07/04/19 20:34 Apresoline PO 25 mg BID DARRYN Administration Piperacillin Sod/Tazobactam 100 mls @ 200 mls/hr 07/01/19 21:00 07/04/19 20: 38 Sod 4.5 gm/ Sodium Chloride IVPB 100 mls 0300,0900,1500,2100 DARRYN Administration Sodium Chloride 1,000 mls @ 70 mls/hr 07/03/19 12:33 07/04/19 16:10 Normal Saline 0.9% IV 1,000 mls .[id number] DARRYN Administration Insulin Human Lispro 0 units 07/01/19 15:02 07/04/19 18:38 Humalog SC 6 unit .MODERATE SLIDING SC PRN Administration Moderate Correctional Scale Insulin Human NPH 10 unit 07/03/19 21:00 07/04/19 20:38 Humulin N SC 10 unit BID [facility] Administration Lisinopril 20 mg 07/01/19 21:00 07/04/19 20:34 Zestril PO 20 mg BID [facility] Administration Morphine Sulfate 2 mg 07/01/19 14:58 07/04/19 09:05 Morphine SLOW IVP 2 mg Q4H PRN Administration Moderate Pain (4-6) Nicotine 14 mg 07/01/19 17:00 07/04/19 16:43 Nicoderm Patch TD Not Given Q24HR [facility] Ondansetron HCl 4 mg 07/02/19 18:11 07/04/19 09:08 Zofran IVP 4 mg Q6H PRN Administration Nausea/Vomiting Pantoprazole Sodium 40 mg 07/02/19 09:00 07/04/19 09:00 Protonix IVP 40 mg DAILY [facility] Administration Pregabalin 300 mg 07/02/19 09:00 07/04/19 15:31 Lyrica PO Not Given DAILY [facility] Ropinirole HCl 0.25 mg 07/01/19 21:00 07/04/19 20:34 Requip PO 0.25 mg TID DARRYN Administration Sodium Chloride 10 ml 07/04/19 21:00 07/04/19 20:40 Flush - Normal Saline IVF 10 ml Q12HR DARRYN Administration Tramadol HCl 100 mg 07/01/19 15:03 07/03/19 07:45 Ultram PO 100 mg Q6H PRN Administration .BREAKTHROUGH PAIN Tramadol HCl 50 mg 07/02/19 18:11 07/03/19 22:07 Ultram PO 50 mg Q4H PRN Administration Moderate to Severe Pain (4-10) - Exam General Appearance: NAD Neck: supple, no JVD Heart: RRR, no gallops Respiratory: CTAB, no rales Gastrointestinal: soft, non-tender, normal bowel sounds Extremities: no edema Extremities - other findings: wound vac+ Hosp A/P - Plan DVT proph w/lovenox Diabetic foot infection s/p debridement Acute appendicitis s/p surgery DM2 uncontrolled BELKYS on CKD2 PVD HTN uncontrolled GERD h/o DVT - on Lovenox Mod PEM PLAN: Cont IV Zosyn Cont IVF overnight Resume anticoagulation with Lovenox Cont NPH 10 units BID Cont Hydralazine/Lisinopril Cont wound care AM labs Change PPI to PO
[2019-07-05] MEDS: HYDROcodone/Acetaminophen 7.5/325 mg Tablet PO PRN ×4 (03:50→21:32)
[2019-07-05] MEDS: Piperacillin/Tazobactam 4.5 GM in Sodium Chloride 0.9% 100 ML IVPB SCH ×3 (03:51→17:35)
[2019-07-05 05:15] LABS: #Eosinphils 0.4 thou/uL (0.0-0.7); #Lymphocytes 1.6 thou/uL (1.20-3.40); #Monocytes 0.8 thou/uL (0.11-0.59); #Neutrophils 5.9 thou/uL (1.40-6.50); %Basophils 0.5 % (0.0-1.0); %Eosinophils 4.5 % (0.0-10.0); %Lymphocytes 18.6 % (21.0-51.0); %Monocytes 8.7 % (0.0-10.0); %Neutrophils 67.7 % (42.0-75.0); Hemoglobin 10.7 g/dL (14.0-18.0); Mean Corpuscular HGB CONC 33.9 g/dL (32.0-36.0); Mean Corpuscular Hemoglobin 30.4 pg (27.0-31.0); Mean Corpuscular Volume 89.6 fL (78.0-98.0); Mean Platelet Volume 6.8 fL (7.4-10.4); Platelet Count 344 thou/uL (130-400); RBC Distribution Width 12.2 % (11.5-14.5); Red Blood Cell (RBC) Count 3.52 mill/uL (4.70-6.10); White Blood Cell (WBC) Count 8.7 thou/uL (4.8-10.8)
[2019-07-05 05:17] LABS: Anion Gap 11 mmol/L (10-20); BUN (Urea Nitrogen) 14 mg/dL (8.4-25.7); Calc. Creatinine Clearance 44 mL/min (70-130); Calcium 7.7 mg/dL (7.8-10.44); Carbon Dioxide 24 mmol/L (22-29); Chloride 107 mmol/L (98-107); Estimated GFR-MDRD 33; Glucose 224 mg/dL (70-105); Potassium 3.6 mmol/L (3.5-5.1); Sodium 138 mmol/L (136-145)
[2019-07-05] MEDS ORDERED: Nicotine 14 MG PATCH TD PRN (09:00)
[2019-07-05] MEDS: Aspirin 81 mg Enteric Coated Tablet PO SCH (09:12)
[2019-07-05] MEDS: cloNIDine 0.1 MG TAB PO PRN (09:13)
[2019-07-05] MEDS: hydrALAZINE 25 MG TAB PO SCH ×3 (09:13→21:32)
[2019-07-05] MEDS: Gabapentin 300 MG CAP PO SCH ×3 (09:13→21:32)
[2019-07-05] MEDS: Pregabalin 75 MG CAP PO SCH ×2 (09:14→21:31)
[2019-07-05] MEDS: rOPINIRole HCl 0.25 MG TAB PO SCH ×3 (09:15→21:31)
[2019-07-05 09:30] LABS: Hemoglobin 11.3 g/dL (14.0-18.0); Platelet Count 343 thou/uL (130-400)
[2019-07-05] MEDS: NIFEdipine XL 30 MG TAB PO SCH ×2 (09:32→21:31)
[2019-07-05] MEDS: Sodium Chloride 0.9% 1,000 ML IV SCH ×2 (09:32→17:26)
[2019-07-05] MEDS: NPH, Human Insulin Isophane 300 UNIT/3 ML VIAL SC SCH ×2 (09:33→21:30)
--- NOTE | 2019-07-05 10:17 | OP ---
DATE OF PROCEDURE: 07/04/2019 POSTOP NOTE: PREOPERATIVE DIAGNOSIS: Necrosis in wound, right foot. POSTOPERATIVE DIAGNOSIS: Necrosis in wound, right foot. PROCEDURE PERFORMED: Debridement of necrotic tissues and further resection of the fifth metatarsal. ESTIMATED BLOOD LOSS: 100 mL. ANESTHESIA: Sedation with ankle block. PATHOLOGY: Nothing sent. Necrotic tissue seen. COMPLICATIONS: No complications. Job ID: [id number]
--- NOTE | 2019-07-05 10:18 | OP ---
DATE OF PROCEDURE: 07/04/2019 PREOPERATIVE DIAGNOSIS: Necrosis to right wound. POSTOPERATIVE DIAGNOSIS: Necrosis to right wound. PROCEDURE PERFORMED: Debridement of wound with further resection of the fifth metatarsal. ANESTHESIA: Ankle block with sedation. ESTIMATED BLOOD LOSS: 100 mL. DESCRIPTION OF PROCEDURE: The patient was taken to the operating room and placed on the operating room table in supine position. An ankle block was administered by Anesthesia prior to entering the operating room. After sedation was achieved, the right lower extremity was scrubbed and draped in the usual surgical manner. Attention was directed to the right wound. The periphery of the wound has Surgicel that it is dry and black with some underlying necrotic tissues. After debridement of all the Surgicel, good bleeding tissues noted. Tendinous structures noted in the wound and it was retracted and sharply dissected deeply. Also the fifth metatarsal had dorsal prominence and was resected with a bone forceps and a rongeur. Copious lavage of the surgical site was performed. One pulsatile bleeder was cauterized. All remaining tissues were healthy in appearance. The wound was packed with iodoform dressing, 4x4s, ABD pad, Kerlix, and an Karthik bandage. The patient was readmitted to the hospital for wound care and recovery for his appendectomy he had yesterday. A wound VAC will be placed tomorrow. I will follow the patient tomorrow to check on the status. Job ID: [id number]
[2019-07-05] MEDS: Morphine 2 MG/ML SYRINGE SLOW IVP PRN (13:35)
[2019-07-05] MEDS: HumaLOG 300 UNITS/3 ML VIAL SC PRN (13:36)
--- NOTE | 2019-07-05 17:54 | PRG ---
DATE OF SERVICE: SUBJECTIVE: The patient is having a little bit of pain at the port entry sites for the appendectomy. His foot is not bothering him too much. No dyspnea or chest pain. Voiding without difficulty. OBJECTIVE: VITAL SIGNS: Vital signs have been normal except for elevation in systolic blood pressure. Appears in no distress. HEENT: Ocular movements conjugate. LUNGS: Clear. HEART: S1 and S2, regular rate. ABDOMEN: Mildly distended, mildly tender. Port sites are okay. The foot with a negative pressure dressing in place. I was able to see the photos from this morning wound dressing change and the wound looks fresh without any areas of necrosis or inflammatory change. LABORATORY DATA: White cell count 8.7, hemoglobin 10.7, platelets 344. Sodium 138; creatinine is upped, it started 1.34 and now is up to 2.1. GFR went down from 58 to 33. He has been held because of that problem now. Currently, on Zosyn. The pathology showed eosinophilic appendicitis. ASSESSMENT AND DISCUSSION: Type 2 diabetes, chronic smoking, right 5th ray amputation for management of osteomyelitis with clean margins, having completed one week and half of oral Augmentin. Acute appendicitis, status post resection. As soon as the kidney function stabilizes, he can be discharged on oral Augmentin to complete the previously planned course of therapy. The original intention was to total of 14 days, so another few days and should be completed with the antimicrobial therapy for his foot issue. Job ID: [id number]
--- NOTE | 2019-07-05 21:09 | PRG ---
DATE OF SERVICE: SUBJECTIVE FINDINGS: Postop day #1, The patient is resting comfortably in bed and is trying to order lunch. The patient states he has no pain and is doing well. He states his appetite is good. The patient had a wound VAC placed earlier today. The patient has wound VAC in place. Pictures of the wound were shown to me and appeared healthy and granular. No necrotic tissues noted. Wound VAC is again in place and minimal production seen. ASSESSMENT AND PLAN: 1. The patient is cleared to go home from a podiatry standpoint. 2. The patient will follow up with me in the office a week after discharge. The patient is still undergoing IV antibiotics and being followed by Dr. Sullivan. The patient will be scheduled with outpatient wound VAC therapy. Job ID: [id number]
[2019-07-05] MEDS: Piperacillin/Tazobactam 2.25 GM in Sodium Chloride 0.9% 100 ML IVPB SCH (21:30)
[2019-07-05] MEDS: Enoxaparin Sodium 80 MG/0.8 ML SYRINGE SC SCH (21:33)
--- NOTE | 2019-07-05 23:06 | PDOC.HOSPP ---
- Subjective Encounter Date: 07/05/19 Encounter Time: 13:00 Subjective: Patient seen and examined for diabetic foot infection. Some pain around the surgical site. No new complaints. No overnight events - Objective Vital Signs & Weight: Vital Signs (12 hours) Temp Pulse Resp BP Pulse Ox 07/05/19 17:25 87 07/05/19 16:00 97.8 F 86 18 184/88 H 98 07/05/19 11:53 97.8 F 87 18 180/81 H 99 Weight Admit Weight 172 lb 6.4 oz Weight 172 lb 4.8 oz I&O: 07/04/19 07/05/19 07/06/19 06:59 06:59 06:59 Intake Total 1440 2614 1900 Output Total 1910 1800 1800 Balance -470 814 100 Result Diagrams: 07/05/19 09:19 07/05/19 09:19 Additional Labs: Accuchecks 07/05/19 07/05/19 07/05/19 20:05 17:50 12:00 POC Glucose 172 H 116 H 322 H 07/05/19 05:22 POC Glucose 235 H EKG Reviewed by me: Yes (Tele SR) Hospitalist ROS - Review of Systems Cardiovascular: denies: chest pain, palpitations, orthopnea, paroxysmal noc. dyspnea, edema, light headedness, other Gastrointestinal: denies: nausea, vomiting, abdominal pain, diarrhea, constipation, melena, hematochezia, other - Medication Medications: Active Medications Generic Name Dose Route Start Last Admin Trade Name Freq PRN Reason Stop Dose Admin Hydrocodone Bitart/Acetaminophen 1 tab 07/04/19 14:31 07/05/19 21:32 [place] 7.5/325 PO 1 tab Q4H PRN Administration Pain Aspirin 81 mg 07/02/19 09:00 07/05/19 09:12 Ecotrin PO 81 mg DAILY DARRYN Administration Clonidine 0.1 mg 07/05/19 08:20 07/05/19 09:13 Catapres PO 0.1 mg Q4H PRN Administration SBP Greater Than 180 Enoxaparin Sodium 80 mg 07/05/19 21:00 07/05/19 21:33 Lovenox SC 80 mg 2100 DARRYN Administration Gabapentin 300 mg 07/05/19 09:00 07/05/19 21:32 Neurontin PO 300 mg TID DARRYN Administration Hydralazine HCl 10 mg 07/02/19 13:29 07/03/19 12:10 Apresoline SLOW IVP 10 mg Q4H PRN Administration Hypertension Hydralazine HCl 50 mg 07/05/19 09:00 07/05/19 21:32 Apresoline PO 50 mg TID DARRYN Administration Sodium Chloride 1,000 mls @ 70 mls/hr 07/03/19 12:33 07/05/19 17:26 Normal Saline 0.9% IV 1,000 mls .[id number] DARRYN Administration Piperacillin Sod/Tazobactam 100 mls @ 200 mls/hr 07/05/19 21:00 07/05/19 21: 30 Sod 2.25 gm/ Sodium Chloride IVPB 100 mls 0300,0900,1500,2100 DARRYN Administration Insulin Human Lispro 0 units 07/01/19 15:02 07/05/19 13:36 Humalog SC 8 unit .MODERATE SLIDING SC PRN Administration Moderate Correctional Scale Insulin Human NPH 10 unit 07/03/19 21:00 07/05/19 21:30 Humulin N SC 10 unit BID DARRYN Administration Lisinopril 20 mg 07/01/19 21:00 07/04/19 20:34 Zestril PO 20 mg BID DARRYN Administration Morphine Sulfate 2 mg 07/01/19 14:58 07/05/19 13:35 Morphine SLOW IVP 2 mg Q4H PRN Administration Moderate Pain (4-6) Nifedipine 30 mg 07/05/19 09:00 07/05/19 21:31 Procardia Xl PO 30 mg BID DARRYN Administration Ondansetron HCl 4 mg 07/02/19 18:11 07/04/19 09:08 Zofran IVP 4 mg Q6H PRN Administration Nausea/Vomiting Pantoprazole Sodium 40 mg 07/05/19 09:00 07/05/19 09:14 Protonix PO 40 mg DAILY DARRYN Administration Pregabalin 150 mg 07/05/19 21:00 07/05/19 21:31 Lyrica PO 150 mg BID DARRYN Administration Ropinirole HCl 0.25 mg 07/01/19 21:00 07/05/19 21:31 Requip PO 0.25 mg TID DARRYN Administration Sodium Chloride 10 ml 07/04/19 21:00 07/05/19 21:33 Flush - Normal Saline IVF Not Given Q12HR DARRYN Tramadol HCl 100 mg 07/01/19 15:03 07/03/19 07:45 Ultram PO 100 mg Q6H PRN Administration .BREAKTHROUGH PAIN Tramadol HCl 50 mg 07/02/19 18:11 07/03/19 22:07 Ultram PO 50 mg Q4H PRN Administration Moderate to Severe Pain (4-10) - Exam General Appearance: NAD Heart: RRR, no gallops Respiratory: CTAB, no rales Gastrointestinal: soft, non-tender, normal bowel sounds Extremities: no edema Extremities - other findings: wound vac+ Hosp A/P - Plan DVT proph w/lovenox Diabetic foot infection s/p debridement Acute appendicitis s/p surgery DM2 uncontrolled BELKYS on CKD2 PVD HTN uncontrolled GERD h/o DVT - on Lovenox Mod PEM PLAN: Cont IVF Cont IV Zosyn - adjust dose for renal function Cont Lovenox - reduce dose to daily Cont NPH Cont Hydralazine Hold Lisinopril Add Procardia XL Cont wound care AM labs Nephrology consultation At[facility] for 14 days total Transfer to [facility]
[2019-07-06] MEDS: HYDROcodone/Acetaminophen 7.5/325 mg Tablet PO PRN ×3 (02:14→21:25)
[2019-07-06] MEDS: Piperacillin/Tazobactam 2.25 GM in Sodium Chloride 0.9% 100 ML IVPB SCH ×4 (02:14→21:18)
[2019-07-06 04:19] LABS: #Basophils 0.1 thou/uL (0.0-0.2); #Eosinphils 0.4 thou/uL (0.0-0.7); #Lymphocytes 1.9 thou/uL (1.20-3.40); #Monocytes 0.5 thou/uL (0.11-0.59); #Neutrophils 5.2 thou/uL (1.40-6.50); %Basophils 0.7 % (0.0-1.0); %Eosinophils 5.1 % (0.0-10.0); %Lymphocytes 23.6 % (21.0-51.0); %Monocytes 6.5 % (0.0-10.0); %Neutrophils 64.1 % (42.0-75.0); Hemoglobin 10.2 g/dL (14.0-18.0); Mean Corpuscular HGB CONC 33.4 g/dL (32.0-36.0); Mean Corpuscular Hemoglobin 30.4 pg (27.0-31.0); Mean Corpuscular Volume 91.2 fL (78.0-98.0); Mean Platelet Volume 6.4 fL (7.4-10.4); Platelet Count 273 thou/uL (130-400); RBC Distribution Width 12.3 % (11.5-14.5); Red Blood Cell (RBC) Count 3.36 mill/uL (4.70-6.10); White Blood Cell (WBC) Count 8.1 thou/uL (4.8-10.8)
[2019-07-06 04:39] LABS: Anion Gap 11 mmol/L (10-20); BUN (Urea Nitrogen) 15 mg/dL (8.4-25.7); Calc. Creatinine Clearance 45 mL/min (70-130); Carbon Dioxide 25 mmol/L (22-29); Chloride 107 mmol/L (98-107); Estimated GFR-MDRD 34; Glucose 198 mg/dL (70-105); Potassium 3.5 mmol/L (3.5-5.1); Sodium 139 mmol/L (136-145)
[2019-07-06] MEDS: Aspirin 81 mg Enteric Coated Tablet PO SCH (08:16)
[2019-07-06] MEDS: Pregabalin 75 MG CAP PO SCH ×2 (08:16→21:23)
[2019-07-06] MEDS: Gabapentin 300 MG CAP PO SCH ×3 (08:18→21:21)
[2019-07-06] MEDS: hydrALAZINE 25 MG TAB PO SCH ×3 (08:18→21:21)
[2019-07-06] MEDS: rOPINIRole HCl 0.25 MG TAB PO SCH ×2 (08:18→16:01)
[2019-07-06] MEDS: NIFEdipine XL 30 MG TAB PO SCH (08:18)
[2019-07-06] MEDS: NPH, Human Insulin Isophane 300 UNIT/3 ML VIAL SC SCH ×2 (08:19→21:36)
[2019-07-06] MEDS: HumaLOG 300 UNITS/3 ML VIAL SC PRN ×3 (12:19→21:32)
--- NOTE | 2019-07-06 15:14 | PRG ---
DATE OF SERVICE: 07/06/2019 SUBJECTIVE: The patient was seen and examined, noted with the following vital signs. OBJECTIVE: VITAL SIGNS: Afebrile, temperature 97.8, pulse 94, respiratory rate of 18, O2 saturation of 97% with a blood pressure of 172/83. HEENT: Unremarkable. Moist oral mucosa. No conjunctival injection or icterus. NECK: Supple. CARDIOVASCULAR SYSTEM: First and second heart sounds were heard. RESPIRATORY SYSTEM: Clear to auscultation. DIGESTIVE SYSTEM: Revealed a benign abdomen with positive bowel sounds. EXTREMITIES: No peripheral edema. SKIN: No new gross rash. LYMPHATICS: No peripheral lymphadenopathy. IMPRESSION: 1. Acute on chronic kidney disease in the context of contrast nephropathy and other potential etiologies. 2. Hypertension, suboptimally controlled. PLAN: 1. Continue to hold lisinopril. 2. We will adjust antihypertensive medications to optimize hemodynamics. 3. Further management will be dependent on the clinical course. Job ID: [id number]
[2019-07-06] MEDS: Sodium Chloride 0.9% 1,000 ML IV SCH (17:43)
--- NOTE | 2019-07-06 17:51 | CON ---
DATE OF CONSULTATION: CONSULTING PHYSICIAN: Angie Patel MD REQUESTING PHYSICIAN: Saturnino Sanchez MD REASON FOR CONSULTATION: Acute kidney injury. IMPRESSION: 1. Acute kidney injury, this is likely multifactorial including but no limited to the following: a. Contrast nephropathy. b. Cytokine-mediated injury in the context of infection. c. Possible hemodynamically mediated in terms of potential intraoperative hypotension resulting in acute tubular necrosis. PLAN: 1. Renal supportive measures. 2. Avoid potentially nephrotoxic agents. 3. Outpatient Nephrology followup, status post discharge. 4. Further management will be dependent on the clinical course. HISTORY OF PRESENT ILLNESS: History is that of a 54-year-old gentleman, who presented here with abdominal pain, vomiting, and foot infection. The patient noted on presentation with a normal creatinine; however, the patient did get exposed to contrast in the event of CT scan with contrast on the . Two days after, the patient started experiencing rise in creatinine. The patient denies any nausea, and vomiting seems to be improving clinically; however, creatinine seems to increase to the point that is now above 2. As a result of these, decision has been taken to involve Renal in the management of this case. No hematuria noted. PAST MEDICAL HISTORY: Significant for type 2 diabetes, hypertension, dyslipidemia, and osteomyelitis. SOCIAL HISTORY: Denies alcohol, tobacco, or illicit drug use. MEDICATIONS: Reviewed and as documented on [employer]. ALLERGIES: NO KNOWN DRUG ALLERGIES. FAMILY HISTORY: Significant for kidney disease in the mom. PHYSICAL EXAMINATION: GENERAL: The patient was found not to be in any obvious distress, noted with the following vital signs. VITAL SIGNS: Afebrile, temperature 97.8, pulse 92, respiratory rate of 18, O2 saturations of 97% with blood pressure of 172/81. HEENT: Unremarkable. CARDIOVASCULAR SYSTEM: First and second heard sounds were heard. RESPIRATORY SYSTEM: Clear to auscultation. DIGESTIVE SYSTEM: Revealed a benign abdomen with positive bowel sounds. EXTREMITIES: No peripheral edema. SKIN: No new gross rash. LYMPHATICS: No peripheral lymphadenopathy. ASSESSMENT: In summary, a 54-year-old gentleman with diabetes mellitus, who presented here with abdominal pain, foot infection, status post appendectomy, now experiencing deterioration in renal function. Thank you for this consultation. We will follow with you. Job ID: [id number]
[2019-07-06] MEDS: cloNIDine 0.1 MG TAB PO PRN (18:42)
[2019-07-06] MEDS: Enoxaparin Sodium 80 MG/0.8 ML SYRINGE SC SCH (21:19)
[2019-07-06] MEDS: Metoprolol Tartrate 25 MG TAB PO SCH (21:22)
[2019-07-06] MEDS: rOPINIRole HCl 0.5 MG TAB PO SCH (21:28)
--- NOTE | 2019-07-07 00:12 | PDOC.HOSPP ---
- Subjective Encounter Date: 07/06/19 Encounter Time: 13:45 Subjective: Patient seen and examined for BELKYS. Pain controlled. No CP or SOB. No new complaints. No overnight events - Objective Vital Signs & Weight: Vital Signs (12 hours) Temp Pulse Resp BP BP Pulse Ox 07/06/19 23:45 98.6 F 84 18 153/77 H 97 07/06/19 21:21 95 170/91 H 07/06/19 20:40 99.0 F 95 18 170/81 H 97 07/06/19 18:42 183/88 H 07/06/19 18:25 97.6 F 103 H 18 183/88 H 100 07/06/19 16:01 94 07/06/19 16:00 99 F 94 18 164/74 H 97 Weight Admit Weight 172 lb 6.4 oz Weight 172 lb 4.8 oz I&O: 07/05/19 07/06/19 07/07/19 06:59 06:59 06:59 Intake Total 2614 1900 720 Output Total 1800 1800 Balance 814 100 720 Result Diagrams: 07/06/19 04:11 07/06/19 04:11 Additional Labs: Accuchecks 07/06/19 07/06/19 07/06/19 20:46 16:11 11:48 POC Glucose 314 H 260 H 219 H 07/06/19 05:47 POC Glucose 168 H EKG Reviewed by me: Yes (Tele SR) Hospitalist ROS - Review of Systems Respiratory: denies: cough, dry, shortness of breath, hemoptysis, SOB with excertion, pleuritic pain, sputum, wheezing, other Cardiovascular: denies: chest pain, palpitations, orthopnea, paroxysmal noc. dyspnea, edema, light headedness, other Gastrointestinal: denies: nausea, vomiting, abdominal pain, diarrhea, constipation, melena, hematochezia, other - Medication Medications: Active Medications Generic Name Dose Route Start Last Admin Trade Name Freq PRN Reason Stop Dose Admin Hydrocodone Bitart/Acetaminophen 1 tab 07/04/19 14:31 07/06/19 21:25 [place] 7.5/325 PO 1 tab Q4H PRN Administration Pain Aspirin 81 mg 07/02/19 09:00 07/06/19 08:16 Ecotrin PO 81 mg DAILY DARRYN Administration Clonidine 0.1 mg 07/05/19 08:20 10/04/19 18:42 Catapres PO 0.1 mg Q4H PRN Administration SBP Greater Than 180 Enoxaparin Sodium 80 mg 07/05/19 21:00 07/06/19 21:19 Lovenox SC 80 mg 2100 DARRYN Administration Gabapentin 300 mg 07/05/19 09:00 07/06/19 21:21 Neurontin PO 300 mg TID DARRYN Administration Hydralazine HCl 10 mg 07/02/19 13:29 07/03/19 12:10 Apresoline SLOW IVP 10 mg Q4H PRN Administration Hypertension Hydralazine HCl 50 mg 07/05/19 09:00 07/06/19 21:21 Apresoline PO 50 mg TID DARRYN Administration Piperacillin Sod/Tazobactam 100 mls @ 200 mls/hr 07/05/19 21:00 07/06/19 21: 18 Sod 2.25 gm/ Sodium Chloride IVPB 100 mls 0300,0900,1500,2100 DARRYN Administration Insulin Human Lispro 0 units 07/01/19 15:02 07/06/19 16:37 Humalog SC 6 unit .MODERATE SLIDING SC PRN Administration Moderate Correctional Scale Insulin Human Lispro 0 units 07/03/19 12:34 07/06/19 21:32 Humalog SC 4 unit .BEDTIME SLIDING SC PRN Administration Bedtime Correctional Scale Insulin Human NPH 10 unit 07/03/19 21:00 07/06/19 21:36 Humulin N SC 07/07/19 00:09 10 unit BID DARRYN Administration Lisinopril 20 mg 07/01/19 21:00 07/04/19 20:34 Zestril PO 20 mg BID DARRYN Administration Metoprolol Tartrate 12.5 mg 07/06/19 21:00 07/06/19 21:22 Lopressor PO 12.5 mg BID DARRYN Administration Morphine Sulfate 2 mg 07/01/19 14:58 07/05/19 13:35 Morphine SLOW IVP 2 mg Q4H PRN Administration Moderate Pain (4-6) Ondansetron HCl 4 mg 07/02/19 18:11 07/04/19 09:08 Zofran IVP 4 mg Q6H PRN Administration Nausea/Vomiting Pantoprazole Sodium 40 mg 07/05/19 09:00 07/06/19 08:18 Protonix PO 40 mg DAILY DARRYN Administration Pregabalin 150 mg 07/05/19 21:00 07/06/19 21:23 Lyrica PO 150 mg BID DARRYN Administration Ropinirole HCl 0.25 mg 07/06/19 21:00 07/06/19 21:28 Requip PO 0.25 mg TID DARRYN Administration Sodium Chloride 10 ml 07/04/19 21:00 07/06/19 21:30 Flush - Normal Saline IVF 10 ml Q12HR DARRYN Administration Tramadol HCl 100 mg 07/01/19 15:03 07/03/19 07:45 Ultram PO 100 mg Q6H PRN Administration .BREAKTHROUGH PAIN Tramadol HCl 50 mg 07/02/19 18:11 07/03/19 22:07 Ultram PO 50 mg Q4H PRN Administration Moderate to Severe Pain (4-10) - Exam General Appearance: NAD Neck: supple, no JVD Heart: RRR, no gallops Respiratory: CTAB, no rales Gastrointestinal: soft, non-tender, normal bowel sounds Extremities: no cyanosis, no edema Hosp A/P - Plan Diabetic foot infection s/p debridement Acute appendicitis s/p surgery DM2 uncontrolled BELKYS on CKD2 PVD HTN uncontrolled GERD h/o DVT - on Lovenox Mod PEM PLAN: Cont IVF for BELKYS Cont IV Zosyn - change to Augmentin per ID Cont Lovenox - will adjust dose based on GFR Increase NPH to 20 AM and 15 PM Cont Hydralazine/Procardia XL Lisinopril on hold due to BELKYS Cont wound care AM labs Nephrology following Atbx for 14 days total Await medical bed
[2019-07-07] MEDS: Piperacillin/Tazobactam 2.25 GM in Sodium Chloride 0.9% 100 ML IVPB SCH ×4 (03:30→22:02)
[2019-07-07] MEDS: hydrALAZINE 20 MG/ML VIAL SLOW IVP PRN (04:14)
[2019-07-07 04:44] LABS: #Eosinphils 0.4 thou/uL (0.0-0.7); #Lymphocytes 1.9 thou/uL (1.20-3.40); #Monocytes 0.5 thou/uL (0.11-0.59); #Neutrophils 4.5 thou/uL (1.40-6.50); %Basophils 0.3 % (0.0-1.0); %Eosinophils 5.7 % (0.0-10.0); %Lymphocytes 25.6 % (21.0-51.0); %Monocytes 6.9 % (0.0-10.0); %Neutrophils 61.6 % (42.0-75.0); Hemoglobin 9.2 g/dL (14.0-18.0); Mean Corpuscular HGB CONC 33.5 g/dL (32.0-36.0); Mean Corpuscular Hemoglobin 30.8 pg (27.0-31.0); Platelet Count 268 thou/uL (130-400); RBC Distribution Width 12.4 % (11.5-14.5); White Blood Cell (WBC) Count 7.3 thou/uL (4.8-10.8)
[2019-07-07 05:06] LABS: Anion Gap 9 mmol/L (10-20); BUN (Urea Nitrogen) 20 mg/dL (8.4-25.7); Calc. Creatinine Clearance 46 mL/min (70-130); Calcium 7.7 mg/dL (7.8-10.44); Carbon Dioxide 26 mmol/L (22-29); Chloride 104 mmol/L (98-107); Estimated GFR-MDRD 35; Glucose 357 mg/dL (70-105); Potassium 3.6 mmol/L (3.5-5.1); Sodium 135 mmol/L (136-145)
[2019-07-07] MEDS: HumaLOG 300 UNITS/3 ML VIAL SC PRN ×3 (06:26→17:08)
[2019-07-07 07:33] LABS: Hemoglobin 9.9 g/dL (14.0-18.0); Platelet Count 260 thou/uL (130-400)
[2019-07-07] MEDS: hydrALAZINE 25 MG TAB PO SCH ×3 (08:35→21:55)
[2019-07-07] MEDS: NPH, Human Insulin Isophane 300 UNIT/3 ML VIAL SC SCH ×2 (08:35→22:01)
[2019-07-07] MEDS: NIFEdipine XL 60 MG TAB PO SCH (08:36)
[2019-07-07] MEDS: Gabapentin 300 MG CAP PO SCH ×3 (08:36→21:55)
[2019-07-07] MEDS: rOPINIRole HCl 0.5 MG TAB PO SCH ×3 (08:36→21:57)
[2019-07-07] MEDS: Pregabalin 75 MG CAP PO SCH ×2 (08:36→21:56)
[2019-07-07] MEDS: Aspirin 81 mg Enteric Coated Tablet PO SCH (08:37)
[2019-07-07] MEDS: Metoprolol Tartrate 25 MG TAB PO SCH ×2 (08:37→21:55)
[2019-07-07] MEDS: Morphine 2 MG/ML SYRINGE SLOW IVP PRN (10:23)
[2019-07-07] MEDS: HYDROcodone/Acetaminophen 7.5/325 mg Tablet PO PRN ×3 (10:23→21:55)
--- NOTE | 2019-07-07 14:42 | EKG ---
Test Reason : ABD PAIN Blood Pressure : / mmHG Vent. Rate : 091 BPM Atrial Rate : 091 BPM P-R Int : 142 ms QRS Dur : 114 ms QT Int : 384 ms P-R-T Axes : 064 030 059 degrees QTc Int : 472 ms Normal sinus rhythm Incomplete right bundle branch block Borderline ECG Confirmed by GRAYSON LOZANO DO ([id number]), mapping editor CELSO GAMEZ ([id number]) on 07/07/2019 2:42:03 PM Referred By: BLAKE Confirmed By:GRAYSON LOZANO DO
--- NOTE | 2019-07-07 18:39 | PDOC.HOSPP ---
- Subjective Encounter Date: 07/07/19 Encounter Time: 09:40 Subjective: Pt seen for followup re: acute on chronic stage 3 renal failure. Pt says he feels okay, no complaints. - Objective Vital Signs & Weight: Vital Signs (12 hours) Temp Pulse Resp BP BP Pulse Ox 07/07/19 15:37 98.3 F 89 20 138/82 97 07/07/19 14:45 80 155/71 H 07/07/19 11:29 97.5 F L 80 18 155/71 H 100 07/07/19 08:45 100 07/07/19 08:36 76 171/79 H 07/07/19 08:35 76 171/79 H 07/07/19 07:57 98.3 F 76 20 171/79 H 100 Weight Admit Weight 172 lb 6.4 oz Weight 172 lb 4.8 oz I&O: 07/06/19 07/07/19 07/08/19 06:59 06:59 06:59 Intake Total 1900 1400 240 Output Total 1800 Balance 100 1400 240 Result Diagrams: 07/07/19 07:24 07/07/19 07:24 Additional Labs: Accuchecks 07/07/19 07/07/19 07/07/19 17:09 11:42 05:47 POC Glucose 223 H 208 H 322 H 07/06/19 20:46 POC Glucose 314 H Labs and MARs reviewed by or Hospitalist ROS - Review of Systems Cardiovascular: denies: chest pain, palpitations, orthopnea, paroxysmal noc. dyspnea, edema, light headedness Gastrointestinal: denies: nausea, vomiting, abdominal pain, diarrhea, constipation, melena, hematochezia - Medication Medications: Active Medications Generic Name Dose Route Start Last Admin Trade Name Freq PRN Reason Stop Dose Admin Hydrocodone Bitart/Acetaminophen 1 tab 07/04/19 14:31 07/07/19 15:04 [place] 7.5/325 PO 1 tab Q4H PRN Administration Pain Aspirin 81 mg 07/02/19 09:00 07/07/19 08:37 Ecotrin PO 81 mg DAILY DARRYN Administration Clonidine 0.1 mg 07/05/19 08:20 07/06/19 18:42 Catapres PO 0.1 mg Q4H PRN Administration SBP Greater Than 180 Enoxaparin Sodium 80 mg 07/05/19 21:00 07/06/19 21:19 Lovenox SC 80 mg 2100 DARRYN Administration Gabapentin 300 mg 07/05/19 09:00 07/07/19 14:45 Neurontin PO 300 mg TID DARRYN Administration Hydralazine HCl 10 mg 07/02/19 13:29 07/07/19 04:14 Apresoline SLOW IVP 10 mg Q4H PRN Administration Hypertension Hydralazine HCl 50 mg 07/05/19 09:00 07/07/19 14:45 Apresoline PO 50 mg TID DARRYN Administration Piperacillin Sod/Tazobactam 100 mls @ 200 mls/hr 07/05/19 21:00 07/07/19 14: 45 Sod 2.25 gm/ Sodium Chloride IVPB 100 mls 0300,0900,1500,2100 DARRYN Administration Insulin Human Lispro 0 units 07/01/19 15:02 07/07/19 17:08 Humalog SC 4 unit .MODERATE SLIDING SC PRN Administration Moderate Correctional Scale Insulin Human Lispro 0 units 07/03/19 12:34 07/06/19 21:32 Humalog SC 4 unit .BEDTIME SLIDING SC PRN Administration Bedtime Correctional Scale Insulin Human NPH 20 unit 07/07/19 08:00 07/07/19 08:35 Humulin N SC 20 units 0800 DARRYN Administration Lisinopril 20 mg 07/01/19 21:00 07/04/19 20:34 Zestril PO 20 mg BID DARRYN Administration Metoprolol Tartrate 12.5 mg 07/06/19 21:00 07/07/19 08:37 Lopressor PO 12.5 mg BID DARRYN Administration Morphine Sulfate 2 mg 07/01/19 14:58 07/07/19 10:23 Morphine SLOW IVP 2 mg Q4H PRN Administration Moderate Pain (4-6) Nifedipine 60 mg 07/07/19 09:00 07/07/19 08:36 Procardia Xl PO 60 mg DAILY DARRYN Administration Ondansetron HCl 4 mg 07/02/19 18:11 07/04/19 09:08 Zofran IVP 4 mg Q6H PRN Administration Nausea/Vomiting Pantoprazole Sodium 40 mg 07/05/19 09:00 07/07/19 08:35 Protonix PO 40 mg DAILY DARRYN Administration Pregabalin 150 mg 07/05/19 21:00 07/07/19 08:36 Lyrica PO 150 mg BID DARRYN Administration Ropinirole HCl 0.25 mg 07/06/19 21:00 07/07/19 14:45 Requip PO 0.25 mg TID DARRYN Administration Sodium Chloride 10 ml 07/04/19 21:00 07/07/19 08:37 Flush - Normal Saline IVF 10 ml Q12HR DARRYN Administration Sodium Chloride 10 ml 07/04/19 14:19 07/07/19 10:24 Flush - Normal Saline IVF 10 ml PRN PRN Administration Saline Flush Tramadol HCl 100 mg 07/01/19 15:03 07/03/19 07:45 Ultram PO 100 mg Q6H PRN Administration .BREAKTHROUGH PAIN Tramadol HCl 50 mg 07/02/19 18:11 07/03/19 22:07 Ultram PO 50 mg Q4H PRN Administration Moderate to Severe Pain (4-10) - Exam General Appearance: NAD Eye: anicteric sclera ENT: no oropharyngeal lesions, moist mucosa Neck: supple Heart: RRR, no rubs Respiratory: CTAB, no wheezes Gastrointestinal: soft, non-tender Extremities - other findings: R foot wound vac Musculoskeletal: no muscle wasting Psychiatric: normal affect, normal behavior Hosp A/P (1) Acute worsening of stage 3 chronic kidney disease Code(s): N18.3 - CHRONIC KIDNEY DISEASE, STAGE 3 (MODERATE) Status: Acute (2) Uncontrolled diabetes mellitus Code(s): E11.65 - TYPE 2 DIABETES MELLITUS WITH HYPERGLYCEMIA Status: Acute (3) Dyslipidemia Code(s): E78.5 - HYPERLIPIDEMIA, UNSPECIFIED Status: Chronic (4) HTN (hypertension) Code(s): I10 - ESSENTIAL (PRIMARY) HYPERTENSION Status: Chronic Qualifiers: (5) Acute appendicitis Code(s): K35.80 - UNSPECIFIED ACUTE APPENDICITIS Status: Resolved - Plan continue antibiotics, PT/OT, out of bed/ambulate Cr improved to 1.92, renal function stabilizing. Continue IV Zosyn. Monitor vital signs, titrate antihypertensives as needed. s/p appendectomy. s/p foot wound debridement and wound vac placement. Switch to aggressive insulin sliding scale.
[2019-07-07] MEDS: Enoxaparin Sodium 80 MG/0.8 ML SYRINGE SC SCH (21:58)
[2019-07-07] MEDS: Morphine 4 MG/ML VIAL SLOW IVP PRN (23:39)
[2019-07-08] MEDS: HYDROcodone/Acetaminophen 7.5/325 mg Tablet PO PRN ×3 (03:50→13:57)
[2019-07-08] MEDS: Piperacillin/Tazobactam 2.25 GM in Sodium Chloride 0.9% 100 ML IVPB SCH ×4 (03:50→20:25)
[2019-07-08] MEDS: HumaLOG 300 UNITS/3 ML VIAL SC PRN ×3 (06:15→20:39)
--- NOTE | 2019-07-08 06:46 | PRG ---
DATE OF SERVICE: 07/07/2019 SUBJECTIVE: The patient was seen and examined, noted with the following vital signs with no new complaints. OBJECTIVE: VITAL SIGNS: Temperature 98.3, pulse 89, respiratory rate of 20, O2 saturation 97%, blood pressure 157/71. HEENT: Unremarkable. CARDIOVASCULAR: First and second heart sounds were heard. RESPIRATORY: Clear to auscultation. DIGESTIVE SYSTEM: Benign abdomen. Positive bowel sounds. EXTREMITIES: No peripheral edema. SKIN: No new gross rash. LYMPHATICS: No peripheral lymphadenopathy. LABORATORY INVESTIGATION: Showed a hemoglobin of 9.9, creatinine down to 1.19. IMPRESSION: 1. Acute on chronic kidney disease, likely in the context of contrast nephropathy, seems to be improving. 2. Chronic kidney disease, stage 3. 3. Diabetes mellitus type 2 likely resulting in diabetic nephropathy. PLAN: 1. We will continue with current renal supportive measures. 2. Outpatient Nephrology followup status post discharge strongly recommended. 3. Blood sugar control is very important. Job ID: [id number]
[2019-07-08] MEDS: Metoprolol Tartrate 25 MG TAB PO SCH ×2 (09:31→20:28)
[2019-07-08] MEDS: hydrALAZINE 25 MG TAB PO SCH ×3 (09:31→20:27)
[2019-07-08] MEDS: Gabapentin 300 MG CAP PO SCH ×3 (09:32→20:28)
[2019-07-08] MEDS: NIFEdipine XL 60 MG TAB PO SCH (09:32)
[2019-07-08] MEDS: Pregabalin 75 MG CAP PO SCH ×2 (09:32→20:28)
[2019-07-08] MEDS: rOPINIRole HCl 0.5 MG TAB PO SCH ×3 (09:32→20:26)
[2019-07-08] MEDS: Aspirin 81 mg Enteric Coated Tablet PO SCH (09:32)
[2019-07-08] MEDS: NPH, Human Insulin Isophane 300 UNIT/3 ML VIAL SC SCH ×2 (09:33→20:40)
[2019-07-08] MEDS: hydrALAZINE 20 MG/ML VIAL SLOW IVP PRN (10:46)
[2019-07-08] MEDS: cloNIDine 0.1 MG TAB PO PRN (12:22)
--- NOTE | 2019-07-08 13:25 | PDOC.HOSPP ---
- Subjective Encounter Date: 07/08/19 Encounter Time: 08:40 Subjective: Pt seen for followup re: hypertensive urgency. No complaints today. - Objective Vital Signs & Weight: Vital Signs (12 hours) Temp Pulse Resp BP BP Pulse Ox 07/08/19 12:22 186/85 H 07/08/19 11:40 98.5 F 85 18 207/93 H 94 L 07/08/19 07:53 98.0 F 77 20 176/87 H 98 07/08/19 03:50 98.7 F 84 16 170/84 H 95 Weight Admit Weight 172 lb 6.4 oz Weight 172 lb 4.8 oz I&O: 07/07/19 07/08/19 07/09/19 06:59 06:59 06:59 Intake Total 1400 720 Output Total 925 Balance 1400 -205 Result Diagrams: 07/07/19 07:24 07/07/19 07:24 Additional Labs: Accuchecks 07/08/19 07/08/19 07/07/19 10:44 05:41 20:50 POC Glucose 127 H 281 H 287 H 07/07/19 17:09 POC Glucose 223 H Labs and MARs reviewed by [place] Hospitalist ROS - Review of Systems Constitutional: denies: fever, chills, sweats, weakness, malaise Gastrointestinal: denies: nausea, vomiting, abdominal pain, diarrhea, constipation, melena, hematochezia - Medication Medications: Active Medications Generic Name Dose Route Start Last Admin Trade Name Freq PRN Reason Stop Dose Admin Hydrocodone Bitart/Acetaminophen 1 tab 07/04/19 14:31 07/08/19 09:39 [place] 7.5/325 PO 1 tab Q4H PRN Administration Pain Aspirin 81 mg 07/02/19 09:00 07/08/19 09:32 Ecotrin PO 81 mg DAILY DARRYN Administration Clonidine 0.1 mg 07/05/19 08:20 07/08/19 12:22 Catapres PO 0.1 mg Q4H PRN Administration SBP Greater Than 180 Enoxaparin Sodium 80 mg 07/05/19 21:00 07/07/19 21:58 Lovenox SC 80 mg 2100 DARRYN Administration Gabapentin 300 mg 07/05/19 09:00 07/08/19 09:32 Neurontin PO 300 mg TID DARRYN Administration Hydralazine HCl 10 mg 07/02/19 13:29 07/08/19 10:46 Apresoline SLOW IVP 10 mg Q4H PRN Administration Hypertension Hydralazine HCl 50 mg 07/05/19 09:00 07/08/19 09:31 Apresoline PO 50 mg TID DARRYN Administration Piperacillin Sod/Tazobactam 100 mls @ 200 mls/hr 07/05/19 21:00 07/08/19 09: 33 Sod 2.25 gm/ Sodium Chloride IVPB 100 mls 0300,0900,1500,2100 DARRYN Administration Insulin Human Lispro 0 units 07/03/19 12:34 07/06/19 21:32 Humalog SC 4 unit .BEDTIME SLIDING SC PRN Administration Bedtime Correctional Scale Insulin Human Lispro 0 units 07/07/19 18:47 07/08/19 06:15 Humalog SC 9 unit .AGGRESSIVE SLIDING PRN Administration Aggressive Correctional Scale Insulin Human NPH 20 unit 07/07/19 08:00 07/08/19 09:33 Humulin N SC 20 units 0800 DARRYN Administration Insulin Human NPH 15 unit 07/07/19 21:00 07/07/19 22:01 Humulin N SC 15 unit HS DARRYN Administration Lisinopril 20 mg 07/01/19 21:00 07/04/19 20:34 Zestril PO 20 mg BID DARRYN Administration Metoprolol Tartrate 12.5 mg 07/06/19 21:00 07/08/19 09:31 Lopressor PO 12.5 mg BID DARRYN Administration Morphine Sulfate 2 mg 07/01/19 14:58 07/07/19 10:23 Morphine SLOW IVP 2 mg Q4H PRN Administration Moderate Pain (4-6) Morphine Sulfate 4 mg 07/01/19 14:58 07/07/19 23:39 Morphine SLOW IVP 4 mg Q4H PRN Administration Severe Pain (7-10) Nifedipine 60 mg 07/07/19 09:00 07/08/19 09:32 Procardia Xl PO 60 mg DAILY DARRYN Administration Ondansetron HCl 4 mg 07/02/19 18:11 07/04/19 09:08 Zofran IVP 4 mg Q6H PRN Administration Nausea/Vomiting Pantoprazole Sodium 40 mg 07/05/19 09:00 07/08/19 09:31 Protonix PO 40 mg DAILY DARRYN Administration Pregabalin 150 mg 07/05/19 21:00 07/08/19 09:32 Lyrica PO 150 mg BID DARRYN Administration Ropinirole HCl 0.25 mg 07/06/19 21:00 07/08/19 09:32 Requip PO 0.25 mg TID DARRYN Administration Sodium Chloride 10 ml 07/04/19 21:00 07/08/19 09:34 Flush - Normal Saline IVF 10 ml Q12HR DARRYN Administration Sodium Chloride 10 ml 07/04/19 14:19 07/07/19 10:24 Flush - Normal Saline IVF 10 ml PRN PRN Administration Saline Flush Tramadol HCl 100 mg 07/01/19 15:03 07/03/19 07:45 Ultram PO 100 mg Q6H PRN Administration .BREAKTHROUGH PAIN Tramadol HCl 50 mg 07/02/19 18:11 07/03/19 22:07 Ultram PO 50 mg Q4H PRN Administration Moderate to Severe Pain (4-10) - Exam General Appearance: NAD, awake alert Eye: anicteric sclera ENT: moist mucosa Neck: supple, no thyromegaly Heart: RRR, no rubs Respiratory: CTAB, no ronchi Gastrointestinal: soft, non-tender Extremities - other findings: wound vac R foot Musculoskeletal: normal tone, normal strength Psychiatric: normal affect, normal behavior Hosp A/P (1) Hypertensive urgency Code(s): I16.0 - HYPERTENSIVE URGENCY Status: Acute (2) Acute worsening of stage 3 chronic kidney disease Code(s): N18.3 - CHRONIC KIDNEY DISEASE, STAGE 3 (MODERATE) Status: Acute (3) Uncontrolled diabetes mellitus Code(s): E11.65 - TYPE 2 DIABETES MELLITUS WITH HYPERGLYCEMIA Status: Acute (4) Dyslipidemia Code(s): E78.5 - HYPERLIPIDEMIA, UNSPECIFIED Status: Chronic (5) Acute appendicitis Code(s): K35.80 - UNSPECIFIED ACUTE APPENDICITIS Status: Resolved - Plan PT/OT, out of bed/ambulate Check creatinine tomorrow. Continue IV Zosyn. Increase metoprolol to 25 mg BID and hydralazine to 75 mg TID. s/p appendectomy. s/p foot wound debridement and wound vac placement. Switches to aggressive insulin sliding scale yesterday, continue accuchecks.
[2019-07-08] MEDS ORDERED: Metoprolol Tartrate 25 MG TAB PO SCH (13:30)
[2019-07-08] MEDS ORDERED: hydrALAZINE 25 MG TAB PO SCH (13:30)
--- NOTE | 2019-07-08 19:35 | PRG ---
DATE OF SERVICE: 07/08/2019 SUBJECTIVE: The patient was seen and examined, noted with the following vital signs; afebrile, temperature 97.4, pulse 83, respiratory rate of 20, O2 saturations of 98% with blood pressure 129/73 to 186/85. PHYSICAL EXAMINATION: HEENT: Unremarkable. Moist oral mucosa. NECK: Supple. No conjunctival injection or icterus. CARDIOVASCULAR SYSTEM: First and second sounds were heard. RESPIRATORY SYSTEM: Clear to auscultation. DIGESTIVE SYSTEM: A benign abdomen with positive bowel sounds. EXTREMITIES: No peripheral edema. SKIN: No new gross rash. LYMPHATICS: No peripheral lymphadenopathy. IMPRESSION: [id number] kidney disease, which seems to be improving and stabilized. PLAN: 1. We will continue with current renal supportive measures. 2. Continue to adjust antihypertensive medications to optimize hemodynamics. Job ID: [id number]
[2019-07-08] MEDS: Enoxaparin Sodium 80 MG/0.8 ML SYRINGE SC SCH (20:26)
[2019-07-09] MEDS: HYDROcodone/Acetaminophen 7.5/325 mg Tablet PO PRN ×3 (00:07→21:09)
[2019-07-09] MEDS: Piperacillin/Tazobactam 2.25 GM in Sodium Chloride 0.9% 100 ML IVPB SCH ×4 (02:35→21:06)
[2019-07-09] MEDS: Morphine 4 MG/ML VIAL SLOW IVP PRN (02:36)
[2019-07-09] MEDS: HumaLOG 300 UNITS/3 ML VIAL SC PRN ×3 (06:09→21:13)
[2019-07-09] MEDS: NPH, Human Insulin Isophane 300 UNIT/3 ML VIAL SC SCH ×2 (08:36→21:08)
[2019-07-09] MEDS: Gabapentin 300 MG CAP PO SCH ×3 (08:39→21:07)
[2019-07-09] MEDS: Aspirin 81 mg Enteric Coated Tablet PO SCH (08:39)
[2019-07-09] MEDS: hydrALAZINE 25 MG TAB PO SCH ×3 (08:40→21:07)
[2019-07-09] MEDS: Pregabalin 75 MG CAP PO SCH ×2 (08:40→21:08)
[2019-07-09] MEDS: Metoprolol Tartrate 25 MG TAB PO SCH ×2 (08:42→21:07)
[2019-07-09] MEDS: rOPINIRole HCl 0.5 MG TAB PO SCH ×3 (08:42→21:01)
[2019-07-09] MEDS: NIFEdipine XL 60 MG TAB PO SCH (08:43)
[2019-07-09 10:41] LABS: Hemoglobin 10.3 g/dL (14.0-18.0); Platelet Count 287 thou/uL (130-400)
[2019-07-09 10:42] LABS: #Basophils 0.1 thou/uL (0.0-0.2); #Eosinphils 0.5 thou/uL (0.0-0.7); #Lymphocytes 1.7 thou/uL (1.20-3.40); #Monocytes 0.4 thou/uL (0.11-0.59); #Neutrophils 4.7 thou/uL (1.40-6.50); %Basophils 0.9 % (0.0-1.0); %Eosinophils 6.9 % (0.0-10.0); %Lymphocytes 22.5 % (21.0-51.0); %Monocytes 5.9 % (0.0-10.0); %Neutrophils 63.9 % (42.0-75.0); Hemoglobin 10.5 g/dL (14.0-18.0); Mean Corpuscular HGB CONC 33.3 g/dL (32.0-36.0); Mean Corpuscular Hemoglobin 30.9 pg (27.0-31.0); Mean Corpuscular Volume 92.9 fL (78.0-98.0); Mean Platelet Volume 7.1 fL (7.4-10.4); Platelet Count 273 thou/uL (130-400); RBC Distribution Width 12.6 % (11.5-14.5); Red Blood Cell (RBC) Count 3.41 mill/uL (4.70-6.10); White Blood Cell (WBC) Count 7.3 thou/uL (4.8-10.8)
[2019-07-09 11:04] LABS: Anion Gap 12 mmol/L (10-20); BUN (Urea Nitrogen) 20 mg/dL (8.4-25.7); Calc. Creatinine Clearance 47 mL/min (70-130); Calcium 8.2 mg/dL (7.8-10.44); Carbon Dioxide 24 mmol/L (22-29); Chloride 104 mmol/L (98-107); Estimated GFR-MDRD 36; Glucose 160 mg/dL (70-105); Sodium 136 mmol/L (136-145)
[2019-07-09] MEDS: Ondansetron PF 4 MG/2 ML Vial IVP PRN (17:02)
--- NOTE | 2019-07-09 18:23 | PRG ---
DATE OF SERVICE: 07/09/2019 SUBJECTIVE: The patient was seen and examined, noted with the following vital signs. OBJECTIVE: VITAL SIGNS: Afebrile. Temperature 98.6, pulse 88, respiratory rate of 20, O2 saturation of 100% with blood pressure of 137/71. HEENT: Unremarkable. CARDIOVASCULAR SYSTEM: First and second heart sounds were heard. RESPIRATORY: Clear to auscultation. DIGESTIVE SYSTEM: Revealed a benign abdomen with positive bowel sounds. EXTREMITIES: No peripheral edema. SKIN: No new gross rash. LYMPHATICS: No peripheral lymphadenopathy. LABORATORY INVESTIGATION: Showed a creatinine, which seems to have plateaued around 1.96. IMPRESSION: 1. Acute on chronic kidney disease, seems to have plateaued around with creatinine of about 1.96. 2. Chronic kidney disease, stage 3. PLAN: 1. From the renal standpoint, the patient is due for discharge with a plan to follow up as an outpatient. 2. Renally dose all medications. 3. Further management will be dependent on the clinical course. Job ID: [id number]
--- NOTE | 2019-07-09 19:26 | PDOC.HOSPP ---
- Subjective Encounter Date: 07/09/19 Encounter Time: 10:00 Subjective: Pt seen for followup re: HTN urgency. Feels well, no complaints. - Objective Vital Signs & Weight: Vital Signs (12 hours) Temp Pulse Resp BP BP Pulse Ox 07/09/19 16:00 98.6 F 88 20 137/71 100 07/09/19 14:24 167/83 H 07/09/19 11:20 98.0 F 80 18 167/83 H 99 07/09/19 08:43 84 158/77 H 07/09/19 08:40 84 158/77 H 07/09/19 07:30 98.2 F 84 18 158/77 H 99 Weight Admit Weight 172 lb 6.4 oz Weight 172 lb 4.8 oz I&O: 07/08/19 07/09/19 07/10/19 06:59 06:59 06:59 Intake Total 720 2490 Output Total 925 500 Balance -205 1989 Result Diagrams: 07/09/19 10:20 07/09/19 10:20 Additional Labs: Accuchecks 07/09/19 07/09/19 07/09/19 16:50 11:30 05:40 POC Glucose 243 H 99 197 H 07/08/19 07/08/19 20:54 20:41 POC Glucose 208 H 204 H labs and MARs reviewed by [place] Hospitalist ROS - Review of Systems Cardiovascular: denies: chest pain, palpitations, orthopnea, paroxysmal noc. dyspnea, edema, light headedness Gastrointestinal: denies: nausea, vomiting, abdominal pain, diarrhea, constipation, melena, hematochezia - Medication Medications: Active Medications Generic Name Dose Route Start Last Admin Trade Name Freq PRN Reason Stop Dose Admin Hydrocodone Bitart/Acetaminophen 1 tab 07/04/19 14:31 07/09/19 06:09 [place] 7.5/325 PO 1 tab Q4H PRN Administration Pain Aspirin 81 mg 07/02/19 09:00 07/09/19 08:39 Ecotrin PO 81 mg DAILY DARRYN Administration Clonidine 0.1 mg 07/05/19 08:20 07/08/19 12:22 Catapres PO 0.1 mg Q4H PRN Administration SBP Greater Than 180 Enoxaparin Sodium 80 mg 07/05/19 21:00 07/08/19 20:26 Lovenox SC 80 mg 2100 DARRYN Administration Gabapentin 300 mg 07/05/19 09:00 07/09/19 14:24 Neurontin PO 300 mg TID DARRYN Administration Hydralazine HCl 10 mg 07/02/19 13:29 07/08/19 10:46 Apresoline SLOW IVP 10 mg Q4H PRN Administration Hypertension Hydralazine HCl 75 mg 07/08/19 15:00 07/09/19 14:24 Apresoline PO 75 mg TID DARRYN Administration Piperacillin Sod/Tazobactam 100 mls @ 200 mls/hr 07/05/19 21:00 07/09/19 14: 24 Sod 2.25 gm/ Sodium Chloride IVPB 100 mls 0300,0900,1500,2100 DARRYN Administration Insulin Human Lispro 0 units 07/03/19 12:34 07/08/19 20:39 Humalog SC 2 unit .BEDTIME SLIDING SC PRN Administration Bedtime Correctional Scale Insulin Human Lispro 0 units 07/07/19 18:47 07/09/19 17:00 Humalog SC 6 unit .AGGRESSIVE SLIDING PRN Administration Aggressive Correctional Scale Insulin Human NPH 20 unit 07/07/19 08:00 07/09/19 08:36 Humulin N SC 20 units 0800 DARRYN Administration Insulin Human NPH 15 unit 07/07/19 21:00 07/08/19 20:40 Humulin N SC 15 unit HS DARRYN Administration Lisinopril 20 mg 07/01/19 21:00 07/04/19 20:34 Zestril PO 20 mg BID DARRYN Administration Metoprolol Tartrate 25 mg 07/08/19 21:00 07/09/19 08:42 Lopressor PO 25 mg BID DARRYN Administration Morphine Sulfate 2 mg 07/01/19 14:58 07/07/19 10:23 Morphine SLOW IVP 2 mg Q4H PRN Administration Moderate Pain (4-6) Morphine Sulfate 4 mg 07/01/19 14:58 07/09/19 02:36 Morphine SLOW IVP 4 mg Q4H PRN Administration Severe Pain (7-10) Nifedipine 60 mg 07/07/19 09:00 07/09/19 08:43 Procardia Xl PO 60 mg DAILY DARRYN Administration Ondansetron HCl 4 mg 07/02/19 18:11 07/09/19 17:02 Zofran IVP 4 mg Q6H PRN Administration Nausea/Vomiting Pantoprazole Sodium 40 mg 07/05/19 09:00 07/09/19 08:41 Protonix PO 40 mg DAILY DARRYN Administration Pregabalin 150 mg 07/05/19 21:00 07/09/19 08:40 Lyrica PO 150 mg BID DARRYN Administration Ropinirole HCl 0.25 mg 07/06/19 21:00 07/09/19 14:24 Requip PO 0.25 mg TID DARRYN Administration Sodium Chloride 10 ml 07/04/19 21:00 07/09/19 08:44 Flush - Normal Saline IVF 10 ml Q12HR DARRYN Administration Sodium Chloride 10 ml 07/04/19 14:19 07/07/19 10:24 Flush - Normal Saline IVF 10 ml PRN PRN Administration Saline Flush Tramadol HCl 100 mg 07/01/19 15:03 07/03/19 07:45 Ultram PO 100 mg Q6H PRN Administration .BREAKTHROUGH PAIN Tramadol HCl 50 mg 07/02/19 18:11 07/03/19 22:07 Ultram PO 50 mg Q4H PRN Administration Moderate to Severe Pain (4-10) - Exam General Appearance: NAD Eye: anicteric sclera ENT: moist mucosa Neck: supple Heart: RRR Respiratory: CTAB Gastrointestinal: soft, non-tender Extremities: no edema Extremities - other findings: wound vac R foot Psychiatric: normal affect, normal behavior Hosp A/P (1) Hypertensive urgency Code(s): I16.0 - HYPERTENSIVE URGENCY Status: Acute (2) Acute worsening of stage 3 chronic kidney disease Code(s): N18.3 - CHRONIC KIDNEY DISEASE, STAGE 3 (MODERATE) Status: Acute (3) Uncontrolled diabetes mellitus Code(s): E11.65 - TYPE 2 DIABETES MELLITUS WITH HYPERGLYCEMIA Status: Acute (4) Dyslipidemia Code(s): E78.5 - HYPERLIPIDEMIA, UNSPECIFIED Status: Chronic (5) Acute appendicitis Code(s): K35.80 - UNSPECIFIED ACUTE APPENDICITIS Status: Resolved - Plan continue antibiotics, out of bed/ambulate Creatinine stabilized. HTN improved. s/p appendectomy. s/p foot wound debridement and wound vac placement. Continue accuchecks and insulin sliding scale.
[2019-07-09] MEDS: Enoxaparin Sodium 80 MG/0.8 ML SYRINGE SC SCH (21:00)
[2019-07-10] MEDS: Piperacillin/Tazobactam 2.25 GM in Sodium Chloride 0.9% 100 ML IVPB SCH ×4 (03:31→20:28)
[2019-07-10] MEDS: HYDROcodone/Acetaminophen 7.5/325 mg Tablet PO PRN ×2 (03:31→08:40)
[2019-07-10 06:18] LABS: #Basophils 0.1 thou/uL (0.0-0.2); #Eosinphils 0.4 thou/uL (0.0-0.7); #Lymphocytes 1.8 thou/uL (1.20-3.40); #Monocytes 0.7 thou/uL (0.11-0.59); #Neutrophils 6.3 thou/uL (1.40-6.50); %Basophils 0.6 % (0.0-1.0); %Eosinophils 4.3 % (0.0-10.0); %Monocytes 7.9 % (0.0-10.0); %Neutrophils 68.2 % (42.0-75.0); Mean Corpuscular HGB CONC 33.2 g/dL (32.0-36.0); Mean Corpuscular Hemoglobin 30.8 pg (27.0-31.0); Mean Corpuscular Volume 92.8 fL (78.0-98.0); Mean Platelet Volume 7.3 fL (7.4-10.4); Platelet Count 282 thou/uL (130-400); RBC Distribution Width 12.7 % (11.5-14.5); Red Blood Cell (RBC) Count 3.26 mill/uL (4.70-6.10); White Blood Cell (WBC) Count 9.2 thou/uL (4.8-10.8)
[2019-07-10] MEDS: HumaLOG 300 UNITS/3 ML VIAL SC PRN (06:23)
[2019-07-10 06:33] LABS: Anion Gap 11 mmol/L (10-20); BUN (Urea Nitrogen) 26 mg/dL (8.4-25.7); Calc. Creatinine Clearance 40 mL/min (70-130); Calcium 8.3 mg/dL (7.8-10.44); Carbon Dioxide 25 mmol/L (22-29); Chloride 106 mmol/L (98-107); Estimated GFR-MDRD 30; Glucose 268 mg/dL (70-105); Potassium 4.1 mmol/L (3.5-5.1); Sodium 138 mmol/L (136-145)
[2019-07-10] MEDS: NIFEdipine XL 60 MG TAB PO SCH (08:32)
[2019-07-10] MEDS: hydrALAZINE 25 MG TAB PO SCH ×3 (08:33→22:05)
[2019-07-10] MEDS: Aspirin 81 mg Enteric Coated Tablet PO SCH (08:33)
[2019-07-10] MEDS: Metoprolol Tartrate 25 MG TAB PO SCH (08:34)
[2019-07-10] MEDS: Pregabalin 75 MG CAP PO SCH ×2 (08:34→20:27)
[2019-07-10] MEDS: Gabapentin 300 MG CAP PO SCH ×3 (08:34→20:27)
[2019-07-10] MEDS: NPH, Human Insulin Isophane 300 UNIT/3 ML VIAL SC SCH ×2 (08:36→20:28)
[2019-07-10] MEDS: rOPINIRole HCl 0.5 MG TAB PO SCH ×3 (08:52→20:32)
[2019-07-10] MEDS ORDERED: Metoprolol Tartrate 25 MG TAB PO SCH (10:30)
[2019-07-10] MEDS: traMADol HCl 50 MG TAB PO PRN (10:44)
[2019-07-10] MEDS: Morphine 4 MG/ML VIAL SLOW IVP PRN (14:00)
[2019-07-10] MEDS: cloNIDine 0.1 MG TAB PO PRN (14:46)
--- NOTE | 2019-07-10 16:11 | PDOC.HOSPP ---
- Subjective Encounter Date: 07/10/19 Encounter Time: 08:40 Subjective: Pt seen for followup re: hypertensive urgency. No complaints today. - Objective Vital Signs & Weight: Vital Signs (12 hours) Temp Pulse Resp BP BP Pulse Ox 07/10/19 14:46 182/80 H 07/10/19 14:01 85 173/82 H 07/10/19 13:13 173/82 H 07/10/19 12:00 98.7 F 85 17 188/79 H 98 07/10/19 08:33 94 196/87 H 07/10/19 08:32 94 196/87 H 07/10/19 08:30 98 Weight Admit Weight 172 lb 6.4 oz Weight 172 lb 4.8 oz I&O: 07/09/19 07/10/19 07/11/19 06:59 06:59 06:59 Intake Total 2490 Output Total 500 Balance 1989 Result Diagrams: 07/10/19 05:59 07/10/19 05:59 Additional Labs: Accuchecks 07/10/19 07/09/19 07/09/19 06:24 21:15 16:50 POC Glucose 262 H 241 H 243 H labs and MARs reviewed by ri Hospitalist ROS - Review of Systems Genitourinary: denies: dysuria, frequency, incontinence, hematuria, retention Musculoskeletal: denies: neck pain, shoulder pain, arm pain, back pain, hand pain, leg pain, foot pain - Medication Medications: Active Medications Generic Name Dose Route Start Last Admin Trade Name Freq PRN Reason Stop Dose Admin Hydrocodone Bitart/Acetaminophen 1 tab 07/04/19 14:31 07/10/19 08:40 [place] 7.5/325 PO 1 tab Q4H PRN Administration Pain Aspirin 81 mg 07/02/19 09:00 07/10/19 08:33 Ecotrin PO 81 mg DAILY DARRYN Administration Clonidine 0.1 mg 07/05/19 08:20 07/10/19 14:46 Catapres PO 0.1 mg Q4H PRN Administration SBP Greater Than 180 Enoxaparin Sodium 80 mg 07/05/19 21:00 07/09/19 21:00 Lovenox SC 80 mg 2100 DARRYN Administration Gabapentin 300 mg 07/05/19 09:00 07/10/19 14:01 Neurontin PO 300 mg TID DARRYN Administration Hydralazine HCl 10 mg 07/02/19 13:29 07/08/19 10:46 Apresoline SLOW IVP 10 mg Q4H PRN Administration Hypertension Hydralazine HCl 75 mg 07/08/19 15:00 07/10/19 14:01 Apresoline PO 75 mg TID DARRYN Administration Piperacillin Sod/Tazobactam 100 mls @ 200 mls/hr 07/05/19 21:00 07/10/19 14: 01 Sod 2.25 gm/ Sodium Chloride IVPB 100 mls 0300,0900,1500,2100 DARRYN Administration Insulin Human Lispro 0 units 07/03/19 12:34 07/09/19 21:13 Humalog SC 2 unit .BEDTIME SLIDING SC PRN Administration Bedtime Correctional Scale Insulin Human Lispro 0 units 07/07/19 18:47 07/10/19 06:23 Humalog SC 9 unit .AGGRESSIVE SLIDING PRN Administration Aggressive Correctional Scale Insulin Human NPH 20 unit 07/07/19 08:00 07/10/19 08:36 Humulin N SC 20 units 0800 DARRYN Administration Insulin Human NPH 15 unit 07/07/19 21:00 07/09/19 21:08 Humulin N SC 15 unit HS DARRYN Administration Morphine Sulfate 2 mg 07/01/19 14:58 07/07/19 10:23 Morphine SLOW IVP 2 mg Q4H PRN Administration Moderate Pain (4-6) Morphine Sulfate 4 mg 07/01/19 14:58 07/10/19 14:00 Morphine SLOW IVP 4 mg Q4H PRN Administration Severe Pain (7-10) Nifedipine 60 mg 07/07/19 09:00 07/10/19 08:32 Procardia Xl PO 60 mg DAILY DARRYN Administration Ondansetron HCl 4 mg 07/02/19 18:11 07/09/19 17:02 Zofran IVP 4 mg Q6H PRN Administration Nausea/Vomiting Pantoprazole Sodium 40 mg 07/05/19 09:00 07/10/19 08:34 Protonix PO 40 mg DAILY DARRYN Administration Pregabalin 150 mg 07/05/19 21:00 07/10/19 08:34 Lyrica PO 150 mg BID DARRYN Administration Ropinirole HCl 0.25 mg 07/06/19 21:00 07/10/19 14:01 Requip PO 0.25 mg TID DARRYN Administration Sodium Chloride 10 ml 07/04/19 21:00 07/10/19 08:53 Flush - Normal Saline IVF 10 ml Q12HR DARRYN Administration Sodium Chloride 10 ml 07/04/19 14:19 07/07/19 10:24 Flush - Normal Saline IVF 10 ml PRN PRN Administration Saline Flush Tramadol HCl 100 mg 07/01/19 15:03 07/10/19 10:44 Ultram PO 100 mg Q6H PRN Administration .BREAKTHROUGH PAIN Tramadol HCl 50 mg 07/02/19 18:11 07/03/19 22:07 Ultram PO 50 mg Q4H PRN Administration Moderate to Severe Pain (4-10) - Exam General Appearance: NAD Eye: anicteric sclera ENT: moist mucosa Neck: supple, symmetric Heart: RRR, no murmur Respiratory: CTAB, no rales Gastrointestinal: soft, non-tender Extremities - other findings: wound vac to right foot Skin: no lesions Neurological: no weakness Psychiatric: normal affect Hosp A/P (1) Hypertensive urgency Code(s): I16.0 - HYPERTENSIVE URGENCY Status: Acute (2) Acute worsening of stage 3 chronic kidney disease Code(s): N18.3 - CHRONIC KIDNEY DISEASE, STAGE 3 (MODERATE) Status: Acute (3) Uncontrolled diabetes mellitus Code(s): E11.65 - TYPE 2 DIABETES MELLITUS WITH HYPERGLYCEMIA Status: Acute (4) Dyslipidemia Code(s): E78.5 - HYPERLIPIDEMIA, UNSPECIFIED Status: Chronic (5) Acute appendicitis Code(s): K35.80 - UNSPECIFIED ACUTE APPENDICITIS Status: Resolved - Plan Creatinine worse today, discontinue lisinopril. Add scheduled clonidine for better BP control. s/p appendectomy. s/p foot wound debridement and wound vac placement. Add glipizide, metformin is on hold.
[2019-07-10] MEDS ORDERED: Sodium Chloride 0.9% 1,000 ML IV SCH (16:15)
[2019-07-10] MEDS ORDERED: cloNIDine 0.1 MG TAB PO SCH ×2 (16:15→21:00)
[2019-07-10] MEDS: Metoprolol Tartrate 50 MG TAB PO SCH (20:28)
[2019-07-10] MEDS: Enoxaparin Sodium 80 MG/0.8 ML SYRINGE SC SCH (20:30)
--- NOTE | 2019-07-10 22:39 | PRG ---
DATE OF SERVICE: SUBJECTIVE: The patient resting comfortably in bed, watching TV. The patient states he is having no foot problems or pain. He has had a wound VAC on and functioning since I have last seen him. OBJECTIVE: At this time, the patient has a wet-to-dry dressing in place. The dressing was taken down and evaluation of the wound shows some dusky-appearing tissues. No lanette necrotic tissues. There is no pus or odor. ASSESSMENT AND PLAN: 1. Wet-to-dry dressing applied. 2. I discussed with wound care and we are going to apply a VeraFlo VAC system to the wound and re-evaluate . 3. I put a call in to Dr. Rosales to discuss vascular issues and if there is any other thing that can be done. Job ID: [id number]
--- NOTE | 2019-07-10 23:30 | PRG ---
DATE OF SERVICE: 07/10/2019 SUBJECTIVE: The patient was seen and examined, noted with the following vital signs. OBJECTIVE: VITAL SIGNS: Revealed a temperature of 98.7, pulse 85, respiratory rate of 17, blood pressure 196/87, and O2 sat of 98%. HEENT: Unremarkable. CARDIOVASCULAR SYSTEM: First and second heart sounds were heard. RESPIRATORY SYSTEM: Clear to auscultation. DIGESTIVE SYSTEM: Revealed a benign abdomen with positive bowel sounds. EXTREMITIES: No peripheral edema. SKIN: No new gross rash. LYMPHATICS: No peripheral lymphadenopathy. LABORATORY INVESTIGATION: Significant for hemoglobin of 10.0 and white count 9.2. Chemistry showed BUN of 26 and creatinine of 2.27. IMPRESSION: 1. Hypertension, suboptimally controlled. 2. Acute on chronic kidney disease. 3. Diabetes mellitus, type 2. PLAN: 1. Metformin to be suspended for now until improvement in the renal function. 2. From all indication, it seems . We will likely hold this for now and use antihypertensive medications to control the hemodynamics. 3. Renally dose all medications for low GFR and avoid potentially nephrotoxic agents. Job ID: [id number]
[2019-07-11] MEDS: Piperacillin/Tazobactam 2.25 GM in Sodium Chloride 0.9% 100 ML IVPB SCH ×4 (03:08→21:45)
[2019-07-11] MEDS: HumaLOG 300 UNITS/3 ML VIAL SC PRN ×2 (06:30→11:46)
[2019-07-11] MEDS: rOPINIRole HCl 0.5 MG TAB PO SCH ×3 (08:44→21:47)
[2019-07-11] MEDS: NPH, Human Insulin Isophane 300 UNIT/3 ML VIAL SC SCH ×2 (08:44→21:46)
[2019-07-11] MEDS: hydrALAZINE 25 MG TAB PO SCH ×2 (08:45→15:44)
[2019-07-11] MEDS: Gabapentin 300 MG CAP PO SCH ×3 (08:45→21:48)
[2019-07-11] MEDS: Metoprolol Tartrate 50 MG TAB PO SCH (08:45)
[2019-07-11] MEDS: Aspirin 81 mg Enteric Coated Tablet PO SCH (08:45)
[2019-07-11] MEDS: Pregabalin 75 MG CAP PO SCH ×2 (08:46→21:48)
[2019-07-11] MEDS: HYDROcodone/Acetaminophen 7.5/325 mg Tablet PO PRN ×2 (08:54→21:55)
[2019-07-11] MEDS ORDERED: NIFEdipine XL 90 MG TAB PO SCH (09:00)
[2019-07-11 09:23] LABS: Hemoglobin 10.3 g/dL (14.0-18.0); Platelet Count 254 thou/uL (130-400)
[2019-07-11] MEDS ORDERED: cloNIDine 0.1 MG TAB PO SCH ×2 (10:00→21:00)
[2019-07-11] MEDS ORDERED: NIFEdipine XL 30 MG TAB PO SCH (10:00)
[2019-07-11 10:07] LABS: #Eosinphils 0.5 thou/uL (0.0-0.7); #Lymphocytes 1.4 thou/uL (1.20-3.40); #Monocytes 0.7 thou/uL (0.11-0.59); #Neutrophils 4.4 thou/uL (1.40-6.50); %Basophils 0.4 % (0.0-1.0); %Eosinophils 6.8 % (0.0-10.0); %Lymphocytes 20.6 % (21.0-51.0); %Monocytes 9.7 % (0.0-10.0); %Neutrophils 62.6 % (42.0-75.0); Hemoglobin 10.4 g/dL (14.0-18.0); Mean Corpuscular HGB CONC 32.9 g/dL (32.0-36.0); Mean Corpuscular Hemoglobin 30.7 pg (27.0-31.0); Mean Corpuscular Volume 93.1 fL (78.0-98.0); Mean Platelet Volume 7.6 fL (7.4-10.4); Platelet Count 273 thou/uL (130-400); RBC Distribution Width 12.8 % (11.5-14.5); Red Blood Cell (RBC) Count 3.38 mill/uL (4.70-6.10)
[2019-07-11] MEDS: Sodium Chloride 0.9% 1,000 ML IV SCH ×2 (10:21→17:07)
[2019-07-11 10:30] LABS: Anion Gap 11 mmol/L (10-20); BUN (Urea Nitrogen) 23 mg/dL (8.4-25.7); Calc. Creatinine Clearance 47 mL/min (70-130); Calcium 8.4 mg/dL (7.8-10.44); Carbon Dioxide 25 mmol/L (22-29); Chloride 106 mmol/L (98-107); Estimated GFR-MDRD 36; Glucose 143 mg/dL (70-105); Potassium 4.4 mmol/L (3.5-5.1); Sodium 138 mmol/L (136-145)
[2019-07-11] MEDS: traMADol HCl 50 MG TAB PO PRN (11:49)
--- NOTE | 2019-07-11 13:15 | PDOC.HOSPP ---
- Subjective Encounter Date: 07/11/19 Encounter Time: 08:20 Subjective: Pt seen for followup re: hypertensive urgency. No complaints today, feels well. - Objective Vital Signs & Weight: Vital Signs (12 hours) Temp Pulse Resp BP BP Pulse Ox 07/11/19 11:46 78 175/78 H 07/11/19 11:32 98.3 F 78 16 175/78 H 100 07/11/19 10:20 184/62 H 07/11/19 08:45 88 180/84 H 100 07/11/19 07:38 98.2 F 88 14 180/84 H 100 07/11/19 03:17 98.2 F 83 18 150/74 H 100 Weight Admit Weight 172 lb 6.4 oz Weight 172 lb 4.8 oz I&O: 07/10/19 07/11/19 07/12/19 06:59 06:59 06:59 Intake Total 2120 Output Total 1250 Balance 870 Result Diagrams: 07/11/19 09:11 07/11/19 09:11 Additional Labs: Accuchecks 07/11/19 07/11/19 07/10/19 11:32 06:21 20:29 POC Glucose 189 H 239 H 201 H 07/10/19 07/10/19 16:30 11:55 POC Glucose 128 H 130 H Labs and MARs reviewed by [place] Hospitalist ROS - Review of Systems Constitutional: denies: fever, chills, sweats, weakness, malaise Skin: denies: rash, lesions, jonathan, bruising - Medication Medications: Active Medications Generic Name Dose Route Start Last Admin Trade Name Brandenq PRN Reason Stop Dose Admin Hydrocodone Bitart/Acetaminophen 1 tab 07/04/19 14:31 07/11/19 08:54 [place] 7.5/325 PO 1 tab Q4H PRN Administration Pain Aspirin 81 mg 07/02/19 09:00 07/11/19 08:45 Ecotrin PO 81 mg DAILY DARRYN Administration Clonidine 0.1 mg 07/05/19 08:20 07/10/19 14:46 Catapres PO 0.1 mg Q4H PRN Administration SBP Greater Than 180 Enoxaparin Sodium 80 mg 07/05/19 21:00 07/10/19 20:30 Lovenox SC 80 mg 2100 DARRYN Administration Gabapentin 300 mg 07/05/19 09:00 07/11/19 08:45 Neurontin PO 300 mg TID DARRYN Administration Glipizide 2.5 mg 07/11/19 08:00 07/11/19 08:45 Glucotrol Xl PO 2.5 mg QAM-WM DARRYN Administration Hydralazine HCl 10 mg 07/02/19 13:29 07/08/19 10:46 Apresoline SLOW IVP 10 mg Q4H PRN Administration Hypertension Hydralazine HCl 75 mg 07/08/19 15:00 07/11/19 08:45 Apresoline PO 75 mg TID DARRYN Administration Piperacillin Sod/Tazobactam 100 mls @ 200 mls/hr 07/05/19 21:00 07/11/19 08: 46 Sod 2.25 gm/ Sodium Chloride IVPB 100 mls 0300,0900,1500,2100 DARRYN Administration Sodium Chloride 1,000 mls @ 75 mls/hr 07/11/19 10:30 07/11/19 10:21 Normal Saline 0.9% IV 1,000 mls .[id number] DARRYN Administration Insulin Human Lispro 0 units 07/03/19 12:34 07/09/19 21:13 Humalog SC 2 unit .BEDTIME SLIDING SC PRN Administration Bedtime Correctional Scale Insulin Human Lispro 0 units 07/07/19 18:47 07/11/19 11:46 Humalog SC 3 unit .AGGRESSIVE SLIDING PRN Administration Aggressive Correctional Scale Insulin Human NPH 20 unit 07/07/19 08:00 07/11/19 08:44 Humulin N SC 20 units 0800 DARRYN Administration Insulin Human NPH 15 unit 07/07/19 21:00 07/10/19 20:28 Humulin N SC 15 unit HS DARRYN Administration Metoprolol Tartrate 50 mg 07/10/19 21:00 07/11/19 08:45 Lopressor PO 50 mg BID DARRYN Administration Morphine Sulfate 2 mg 07/01/19 14:58 07/07/19 10:23 Morphine SLOW IVP 2 mg Q4H PRN Administration Moderate Pain (4-6) Morphine Sulfate 4 mg 07/01/19 14:58 07/10/19 14:00 Morphine SLOW IVP 4 mg Q4H PRN Administration Severe Pain (7-10) Ondansetron HCl 4 mg 07/02/19 18:11 07/09/19 17:02 Zofran IVP 4 mg Q6H PRN Administration Nausea/Vomiting Pantoprazole Sodium 40 mg 07/05/19 09:00 07/11/19 08:45 Protonix PO 40 mg DAILY DARRYN Administration Pregabalin 150 mg 07/05/19 21:00 07/11/19 08:46 Lyrica PO 150 mg BID DARRYN Administration Ropinirole HCl 0.25 mg 07/06/19 21:00 07/11/19 08:44 Requip PO 0.25 mg TID DARRYN Administration Sodium Chloride 10 ml 07/04/19 21:00 07/11/19 08:46 Flush - Normal Saline IVF Not Given Q12HR DARRYN Sodium Chloride 10 ml 07/04/19 14:19 07/07/19 10:24 Flush - Normal Saline IVF 10 ml PRN PRN Administration Saline Flush Tramadol HCl 100 mg 07/01/19 15:03 07/11/19 11:49 Ultram PO 100 mg Q6H PRN Administration .BREAKTHROUGH PAIN Tramadol HCl 50 mg 07/02/19 18:11 07/03/19 22:07 Ultram PO 50 mg Q4H PRN Administration Moderate to Severe Pain (4-10) - Exam General Appearance: NAD Eye: anicteric sclera ENT: moist mucosa Neck: supple, no JVD Heart: RRR, no rubs Respiratory: CTAB, no wheezes Gastrointestinal: soft, non-tender Extremities: no edema Extremities - other findings: wound vac Psychiatric: normal affect, normal behavior Hosp A/P (1) Hypertensive urgency Code(s): I16.0 - HYPERTENSIVE URGENCY Status: Acute (2) Acute worsening of stage 3 chronic kidney disease Code(s): N18.3 - CHRONIC KIDNEY DISEASE, STAGE 3 (MODERATE) Status: Acute (3) Uncontrolled diabetes mellitus Code(s): E11.65 - TYPE 2 DIABETES MELLITUS WITH HYPERGLYCEMIA Status: Acute (4) Dyslipidemia Code(s): E78.5 - HYPERLIPIDEMIA, UNSPECIFIED Status: Chronic (5) Acute appendicitis Code(s): K35.80 - UNSPECIFIED ACUTE APPENDICITIS Status: Resolved - Plan continue antibiotics, PT/OT, out of bed/ambulate Creatinine improved to 1.93 today. Increase Procardia to 120 mg daily. s/p appendectomy. s/p foot wound debridement and wound vac placement. Increase glipizide to 5 mg PO QAM.
[2019-07-11] MEDS ORDERED: Sodium Chloride 0.9% 500 ML IV SCH (16:00)
--- NOTE | 2019-07-11 16:40 | CT ---
CT Brain WO Con: 07/11/2019 12:00 AM CLINICAL HISTORY: Lethargy, altered mental status. COMPARISON: None. FINDINGS: Hemorrhage: None. Ventricular system: Normal in size and morphology for the patient's age. Cerebral parenchyma: Scattered foci of white matter hypoattenuation, age indeterminate are present. Midline shift: None. Mass: No mass effect. Calvarium: Normal. Visualized Paranasal sinuses: Scattered mild inflammatory mucosal thickening. IMPRESSION: Scattered white matter hypoattenuation indicating microvascular ischemic disease. Findings may be fur ther assessed with follow-up noncontrast brain MRI. Telephone call placed to ER physician at time of dictation.
[2019-07-11] MEDS ORDERED: Naloxone HCl 2 mg/2 ml Syringe ONE (16:45)
[2019-07-11 17:41] LABS: Prothrombin Time 12.8 SEC (12.0-14.7)
[2019-07-11 17:42] LABS: PTT 37.5 SEC (22.9-36.1)
[2019-07-11 17:46] LABS: BHCG - Serum Negative; Pregs Control Background? CLEAR/WHITE (CLR/WHITE); Pregs Control Bar Appear? YES (CONTROL BAR)
[2019-07-11 18:00] LABS: CKMB 1.7 ng/mL (0-6.6); Troponin I Less than 0.010 ng/mL (< 0.028)
--- NOTE | 2019-07-11 19:24 | PDOC.EVN ---
Event Note - Event Note Event Note: Attended Code Ezio earlier. Reasasessed pt now. Pt more alert, feels better. BP has improved. Phys exam: nil acute. Will continue to monitor.
--- NOTE | 2019-07-11 19:51 | PRG ---
DATE OF SERVICE: 07/11/2019 SUBJECTIVE: The patient is seen and examined. Noted with the following vital signs. OBJECTIVE: VITAL SIGNS: Afebrile, temperature 98.2, pulse 83, respiratory rate 18, blood pressure down to as low as 98 systolic. HEENT: Unremarkable. CARDIOVASCULAR SYSTEM: First and second heart sounds were heard. RESPIRATORY SYSTEM: Clear to auscultation. DIGESTIVE SYSTEM: Revealed a benign abdomen. EXTREMITIES: No peripheral edema. SKIN: No new gross rash. LYMPHATICS: No peripheral lymphadenopathy. IMPRESSION: 1. Acute on chronic kidney disease, which seems to be improving. 2. Chronic kidney disease, stage 3. 3. Labile hemodynamics/hypertension. 4. Diabetes mellitus, type 2. PLAN: 1. It seems the patient's blood pressure dropped precipitously with systolic down to the 90s, this is likely after increasing the dose of antihypertensive medications. We will recommend adjusting this medication to avoid this precipitous drop in blood pressure as this will affect renal perfusion. I will not be surprised if tomorrow the creatinine of this patient is higher than what it is today. 2. The patient is on therapeutic dose of Lovenox, indication is what I am not fully sure. Job ID: [id number]
[2019-07-11] MEDS: Enoxaparin Sodium 80 MG/0.8 ML SYRINGE SC SCH (21:47)
[2019-07-11 22:09] LABS: Amphetamine Not Detected (NotDetected); Barbiturates Screen Not Detected (NotDetected); Benzodiazepine Screen Not Detected (NotDetected); Cocaine Metabolite Screen Not Detected (NotDetected); Medtox Control Line Valid? VALID (VALID); Medtox Reader # READER 4; Methadone Not Detected (NotDetected); Methamphetamine Not Detected (NotDetected); Opiate Screen Detected (NotDetected); Oxycodone Screen Not Detected (NotDetected); Phencyclidine (PCP) Not Detected (NotDetected); THC/Cannabinoid Screen Not Detected (NotDetected); Tricyclic Screen Not Detected (NotDetected)
[2019-07-12] MEDS: Piperacillin/Tazobactam 2.25 GM in Sodium Chloride 0.9% 100 ML IVPB SCH ×4 (02:05→20:48)
[2019-07-12 04:59] LABS: #Basophils 0.1 thou/uL (0.0-0.2); #Eosinphils 0.4 thou/uL (0.0-0.7); #Monocytes 0.6 thou/uL (0.11-0.59); #Neutrophils 4.2 thou/uL (1.40-6.50); %Basophils 0.8 % (0.0-1.0); %Eosinophils 5.6 % (0.0-10.0); %Lymphocytes 27.3 % (21.0-51.0); %Monocytes 8.3 % (0.0-10.0); Hemoglobin 8.8 g/dL (14.0-18.0); Mean Corpuscular HGB CONC 33.3 g/dL (32.0-36.0); Mean Corpuscular Volume 93.2 fL (78.0-98.0); Mean Platelet Volume 7.5 fL (7.4-10.4); Platelet Count 222 thou/uL (130-400); RBC Distribution Width 12.9 % (11.5-14.5); Red Blood Cell (RBC) Count 2.85 mill/uL (4.70-6.10); White Blood Cell (WBC) Count 7.2 thou/uL (4.8-10.8)
[2019-07-12 05:20] LABS: Anion Gap 9 mmol/L (10-20); BUN (Urea Nitrogen) 28 mg/dL (8.4-25.7); Calc. Creatinine Clearance 47 mL/min (70-130); Calcium 7.8 mg/dL (7.8-10.44); Carbon Dioxide 25 mmol/L (22-29); Chloride 108 mmol/L (98-107); Estimated GFR-MDRD 36; Glucose 213 mg/dL (70-105); Potassium 4.2 mmol/L (3.5-5.1); Sodium 138 mmol/L (136-145)
[2019-07-12] MEDS: HumaLOG 300 UNITS/3 ML VIAL SC PRN ×2 (06:31→17:23)
[2019-07-12] MEDS ORDERED: NIFEdipine XL 60 MG TAB PO SCH (09:00)
[2019-07-12] MEDS: Aspirin 81 mg Enteric Coated Tablet PO SCH (09:12)
[2019-07-12] MEDS: Gabapentin 300 MG CAP PO SCH ×3 (09:12→20:46)
[2019-07-12] MEDS: Pregabalin 75 MG CAP PO SCH ×2 (09:13→20:44)
[2019-07-12] MEDS: HYDROcodone/Acetaminophen 7.5/325 mg Tablet PO PRN ×3 (09:16→20:52)
[2019-07-12] MEDS: NPH, Human Insulin Isophane 300 UNIT/3 ML VIAL SC SCH ×2 (09:17→20:49)
[2019-07-12] MEDS: rOPINIRole HCl 0.5 MG TAB PO SCH ×3 (09:17→20:48)
[2019-07-12] MEDS: traMADol HCl 50 MG TAB PO PRN ×2 (12:36→16:20)
[2019-07-12] MEDS: Sodium Chloride 0.9% 1,000 ML IV SCH (12:37)
[2019-07-12] MEDS: hydrALAZINE 20 MG/ML VIAL SLOW IVP PRN (12:38)
[2019-07-12] MEDS: hydrALAZINE 25 MG TAB PO SCH ×2 (14:46→20:45)
--- NOTE | 2019-07-12 15:45 | PDOC.HOSPP ---
- Subjective Encounter Date: 07/12/19 Encounter Time: 08:20 Subjective: Pt seen for followup re; hypertensive urgency. says he feels better. Had hypotension yesterday. - Objective Vital Signs & Weight: Vital Signs (12 hours) Temp Pulse Resp BP BP Pulse Ox 07/12/19 15:39 98.5 F 97 16 99 07/12/19 14:46 101 H 177/79 H 07/12/19 12:38 185/88 H 07/12/19 12:00 98.5 F 93 185/88 H 99 07/12/19 08:58 98.1 F 90 12 182/82 H 99 07/12/19 08:35 99 Weight Admit Weight 172 lb 6.4 oz Weight 172 lb 4.8 oz I&O: 07/11/19 07/12/19 07/13/19 06:59 06:59 06:59 Intake Total 2120 2000 957 Output Total 1250 1000 2390 Balance 870 1000 -1433 Result Diagrams: 07/12/19 04:47 07/12/19 04:47 Additional Labs: Accuchecks 07/12/19 07/12/19 07/11/19 10:37 05:54 20:11 POC Glucose 106 198 H 252 H 07/11/19 07/11/19 16:20 15:33 POC Glucose 149 H 142 H Labs and MARs reviewed by [place] Hospitalist ROS - Review of Systems Gastrointestinal: denies: nausea, vomiting, abdominal pain, diarrhea, constipation, melena, hematochezia Genitourinary: denies: dysuria, frequency, incontinence, hematuria, retention - Medication Medications: Active Medications Generic Name Dose Route Start Last Admin Trade Name Freq PRN Reason Stop Dose Admin Hydrocodone Bitart/Acetaminophen 1 tab 07/04/19 14:31 07/12/19 14:47 [place] 7.5/325 PO 1 tab Q4H PRN Administration Pain Aspirin 81 mg 07/02/19 09:00 07/12/19 09:12 Ecotrin PO 81 mg DAILY DARRYN Administration Enoxaparin Sodium 80 mg 07/05/19 21:00 07/11/19 21:47 Lovenox SC 80 mg 2100 DARRYN Administration Gabapentin 300 mg 07/05/19 09:00 07/12/19 14:46 Neurontin PO 300 mg TID DARRYN Administration Glipizide 5 mg 07/12/19 07:30 07/12/19 06:32 Glucotrol Xl PO 5 mg DAILY-AC DARRYN Administration Hydralazine HCl 10 mg 07/02/19 13:29 07/12/19 12:38 Apresoline SLOW IVP 10 mg Q4H PRN Administration Hypertension Hydralazine HCl 75 mg 07/12/19 15:00 07/12/19 14:46 Apresoline PO 75 mg TID DARRYN Administration Piperacillin Sod/Tazobactam 100 mls @ 200 mls/hr 07/05/19 21:00 07/12/19 14: 48 Sod 2.25 gm/ Sodium Chloride IVPB 100 mls 0300,0900,1500,2100 DARRYN Administration Sodium Chloride 1,000 mls @ 75 mls/hr 07/11/19 10:30 07/12/19 12:37 Normal Saline 0.9% IV 1,000 mls .[id number] DARRYN Administration Insulin Human Lispro 0 units 07/03/19 12:34 07/09/19 21:13 Humalog SC 2 unit .BEDTIME SLIDING SC PRN Administration Bedtime Correctional Scale Insulin Human Lispro 0 units 07/07/19 18:47 07/12/19 06:31 Humalog SC 3 unit .AGGRESSIVE SLIDING PRN Administration Aggressive Correctional Scale Insulin Human NPH 20 unit 07/07/19 08:00 07/12/19 09:17 Humulin N SC 20 units 0800 DARRYN Administration Insulin Human NPH 15 unit 07/07/19 21:00 07/11/19 21:46 Humulin N SC 15 unit HS DARRYN Administration Ondansetron HCl 4 mg 07/02/19 18:11 07/09/19 17:02 Zofran IVP 4 mg Q6H PRN Administration Nausea/Vomiting Pantoprazole Sodium 40 mg 07/05/19 09:00 07/12/19 09:12 Protonix PO 40 mg DAILY DARRYN Administration Pregabalin 150 mg 07/05/19 21:00 07/12/19 09:13 Lyrica PO 150 mg BID DARRYN Administration Ropinirole HCl 0.25 mg 07/06/19 21:00 07/12/19 14:47 Requip PO 0.25 mg TID DARRYN Administration Sodium Chloride 10 ml 07/04/19 21:00 07/12/19 09:19 Flush - Normal Saline IVF Not Given Q12HR DARRYN Sodium Chloride 10 ml 07/04/19 14:19 07/07/19 10:24 Flush - Normal Saline IVF 10 ml PRN PRN Administration Saline Flush Tramadol HCl 50 mg 07/02/19 18:11 07/12/19 12:36 Ultram PO 50 mg Q4H PRN Administration Moderate to Severe Pain (4-10) - Exam General Appearance: NAD Eye: anicteric sclera ENT: moist mucosa Neck: supple, no JVD Heart: RRR Respiratory: CTAB Gastrointestinal: soft Extremities: no clubbing Neurological: no weakness Psychiatric: normal affect, normal behavior Hosp A/P (1) Hypertensive urgency Code(s): I16.0 - HYPERTENSIVE URGENCY Status: Acute (2) Acute worsening of stage 3 chronic kidney disease Code(s): N18.3 - CHRONIC KIDNEY DISEASE, STAGE 3 (MODERATE) Status: Acute (3) Uncontrolled diabetes mellitus Code(s): E11.65 - TYPE 2 DIABETES MELLITUS WITH HYPERGLYCEMIA Status: Acute (4) Dyslipidemia Code(s): E78.5 - HYPERLIPIDEMIA, UNSPECIFIED Status: Chronic (5) Acute appendicitis Code(s): K35.80 - UNSPECIFIED ACUTE APPENDICITIS Status: Resolved - Plan Creatinine stable.Monitor vital signs, titrate antihypertensives as needed.Increase Procardia to 120 mg daily. s/p appendectomy. s/p foot wound debridement and wound vac placement. Continue glipizide.
[2019-07-12] MEDS: oxyCODONE/Acetaminophen 5 mg/325 mg Tablet PO PRN (17:22)
--- NOTE | 2019-07-12 18:10 | PRG ---
DATE OF SERVICE: 07/12/2019 SUBJECTIVE: The patient noted with the following vital signs. OBJECTIVE: VITAL SIGNS: Afebrile. Temperature 98.5, pulse 97, respiratory rate of 16, O2 saturations are 99% with a blood pressure 161/72. HEENT: Unremarkable. CARDIOVASCULAR SYSTEM: First and second heart sounds were heard. RESPIRATORY SYSTEM: Clear to auscultation. DIGESTIVE SYSTEM: Revealed benign abdomen. EXTREMITIES: No peripheral edema. SKIN: No new gross rash. LYMPHATICS: No peripheral lymphadenopathy. IMPRESSION: 1. Hypertension, which seems to be labile. 2. Acute on chronic kidney disease, seems to be stable. 3. Diabetes mellitus, type 2. PLAN: 1. Continue current renal supportive measures. 2. Outpatient Nephrology followup status post discharge recommended. 3. Renally dose all medications and avoid potentially nephrotoxic agents. Job ID: [id number]
[2019-07-12] MEDS: Morphine 4 MG/ML VIAL SLOW IVP PRN (18:59)
--- NOTE | 2019-07-12 19:10 | PRG ---
DATE OF SERVICE: 07/12/[address] Heraclio Sultana to review Mr. Flores. His wound to his right foot is not healing. Talked with Dr. Heraclio Sultana. It appears that after revascularization of the anterior tibial artery, there was minimal improvement. OBJECTIVE: VITAL SIGNS: Blood pressure 160/72, pulse 97, temperature 98.5. LUNGS: Clear to auscultation. HEART: Regular rate and rhythm. ABDOMEN: Soft, nontender, nondistended. EXTREMITIES: Excellent popliteal pulse present. Anterior tibial artery is difficult to palpate due to him having a wound VAC in place. IMPRESSION: Nonhealing wound. RECOMMENDATIONS: I reviewed Mr. Flores' films once again. I could not appreciate the tibioperoneal trunk. It appears completely occluded. This makes it very difficult to obtain access to the posterior tibial artery. He is also occluded distally. The peroneal artery is completely occluded in a long segment. It is likely the anterior tibial artery is still patent, but even if not patent, it does not appear within 24 hours revascularization there was significant improvement in color of the wound. At this point, I do not feel there are any further revascularization options percutaneously. I did state he could consult with CV Surgery for any other options. Job ID: [id number]
[2019-07-12] MEDS: Metoprolol Tartrate 50 MG TAB PO SCH (20:46)
[2019-07-12] MEDS: Enoxaparin Sodium 80 MG/0.8 ML SYRINGE SC SCH (20:49)
--- NOTE | 2019-07-12 23:26 | EKG ---
Test Reason : Blood Pressure : / mmHG Vent. Rate : 077 BPM Atrial Rate : 077 BPM P-R Int : 132 ms QRS Dur : 084 ms QT Int : 414 ms P-R-T Axes : 058 060 074 degrees QTc Int : 468 ms Normal sinus rhythm Normal ECG When compared with ECG of 01-JUL-2019 13:05, QRS duration has decreased Confirmed by Yessy MCKINLEY ([id number]) on 07/12/2019 11:26:10 PM Referred By: CATARINA Confirmed By:Yessy MCKINLEY
[2019-07-13] MEDS: Piperacillin/Tazobactam 2.25 GM in Sodium Chloride 0.9% 100 ML IVPB SCH ×4 (04:34→20:33)
[2019-07-13] MEDS: Sodium Chloride 0.9% 1,000 ML IV SCH ×2 (06:15→09:08)
[2019-07-13 06:26] LABS: #Basophils 0.1 thou/uL (0.0-0.2); #Eosinphils 0.4 thou/uL (0.0-0.7); #Lymphocytes 1.9 thou/uL (1.20-3.40); #Monocytes 0.7 thou/uL (0.11-0.59); #Neutrophils 4.2 thou/uL (1.40-6.50); %Basophils 1.3 % (0.0-1.0); %Eosinophils 6.2 % (0.0-10.0); %Lymphocytes 25.8 % (21.0-51.0); %Monocytes 9.1 % (0.0-10.0); %Neutrophils 57.6 % (42.0-75.0); Hemoglobin 9.8 g/dL (14.0-18.0); Mean Corpuscular HGB CONC 32.6 g/dL (32.0-36.0); Mean Corpuscular Hemoglobin 30.5 pg (27.0-31.0); Mean Corpuscular Volume 93.6 fL (78.0-98.0); Mean Platelet Volume 7.8 fL (7.4-10.4); Platelet Count 259 thou/uL (130-400); RBC Distribution Width 12.9 % (11.5-14.5); Red Blood Cell (RBC) Count 3.21 mill/uL (4.70-6.10); White Blood Cell (WBC) Count 7.2 thou/uL (4.8-10.8)
[2019-07-13] MEDS: HYDROcodone/Acetaminophen 7.5/325 mg Tablet PO PRN ×4 (06:34→20:35)
[2019-07-13 06:45] LABS: Anion Gap 11 mmol/L (10-20); BUN (Urea Nitrogen) 29 mg/dL (8.4-25.7); Calc. Creatinine Clearance 49 mL/min (70-130); Calcium 8.4 mg/dL (7.8-10.44); Carbon Dioxide 24 mmol/L (22-29); Chloride 109 mmol/L (98-107); Estimated GFR-MDRD 38; Glucose 112 mg/dL (70-105); Potassium 4.3 mmol/L (3.5-5.1); Sodium 140 mmol/L (136-145)
--- NOTE | 2019-07-13 07:42 | PRG ---
DATE OF SERVICE: SUBJECTIVE: The patient was seen in the room, appearing to be resting and having his lunch. The patient states he is having some pain at the right foot surgical site. The patient states that the pain medication is helping, but not completely controlling his pain. He has had a VeraFlo VAC system placed for over 24 hours. OBJECTIVE: VeraFlo is intact and reduction seen in holding tank. The bandaging was taken down and the wound was inspected. There is some spotty granular tissues noted in the area of necrosis. The surrounding aspect of the wound continues to have increased fibrotic and nonviable-appearing tissues. The center of the wound does have improved granular healthier looking tissues. During the bandage change, the patient's pain seemed to be significant. ASSESSMENT AND PLAN: 1. I am concerned about the patient's pain possibly having an ischemic component. 2. The patient's wound has some improvement, but not as much as I would like to see. 3. I discussed this case with Dr. Rosales in length and the patient has significant peripheral vascular disease, and Dr. Rosales does not feel he can provide any further intervention for his arterial flow. 4. I discussed the case with Wound Care and at this time, we are going to switch back to the VAC and use Efudex on the wound beneath the wound VAC dressing. 5. I discussed in detail with the patient the slow improvement of the wound with increased necrotic-appearing tissues on the peripheral wound. The patient and I discussed getting a vascular consult, which was written for. We discussed our treatment parameters: a. To see if there is any other vascular intervention that can be done. b. Continue the wound VAC and monitor the wound. We also discussed possible need for further amputation. 6. Adjustment to the patient's medication was done using Percocet 10/325 p.o. q.4 hours as needed for pain, and 4 mg of morphine IV q.4 hours for breakthrough pain was written. 7. We will evaluate options today to define further patient disposition. Job ID: [id number]
[2019-07-13] MEDS: NIFEdipine XL 60 MG TAB PO SCH (08:53)
[2019-07-13] MEDS: Aspirin 81 mg Enteric Coated Tablet PO SCH (08:53)
[2019-07-13] MEDS: hydrALAZINE 25 MG TAB PO SCH ×3 (08:54→20:31)
[2019-07-13] MEDS: Metoprolol Tartrate 50 MG TAB PO SCH ×2 (08:54→20:32)
[2019-07-13] MEDS: Pregabalin 75 MG CAP PO SCH ×2 (08:54→20:33)
[2019-07-13] MEDS: rOPINIRole HCl 0.5 MG TAB PO SCH ×3 (08:55→20:34)
[2019-07-13] MEDS: Gabapentin 300 MG CAP PO SCH ×3 (08:55→20:31)
[2019-07-13] MEDS: NPH, Human Insulin Isophane 300 UNIT/3 ML VIAL SC SCH ×2 (08:55→20:32)
[2019-07-13] MEDS: oxyCODONE/Acetaminophen 5 mg/325 mg Tablet PO PRN ×2 (09:08→18:02)
[2019-07-13] MEDS: hydrALAZINE 20 MG/ML VIAL SLOW IVP PRN (11:19)
--- NOTE | 2019-07-13 11:35 | CON ---
DATE OF CONSULTATION: HISTORY OF PRESENT ILLNESS: This is a 54-year-old gentleman with multiple medical problems including diabetes mellitus, smoking history, hypertension, and dyslipidemia. I initially saw him about 7 years ago for a gangrenous left 5th toe and at that time, vascular evaluation suggested small vessel disease, but not so severe that healing would be impaired and he ultimately underwent a left 5th toe amputation. He recently was admitted for an appendectomy. At that time, he was noted to have a poorly healing right 5th toe amputation and was seen by Dr. Rosales. Angiography was performed and I have reviewed these films and he had single-vessel runoff below the knee and the right leg being a diseased anterior tibial artery that did undergo angioplasty in at least two areas. The patient's wound required further amputation and shows poor healing. PAST SURGICAL HISTORY: Includes the previously noted surgery as well as prior cholecystectomy and the 5th toe amputation. SOCIAL HISTORY: The patient was a pack a day smoker until about 1 month ago. The patient reports that his most recent hemoglobin A1c was in the 11 range. REVIEW OF SYSTEMS: Negative. PHYSICAL EXAMINATION: EXTREMITIES: Today reveals palpable femoral and popliteal pulses bilaterally. The patient has a good Doppler signal in his distal right anterior tibial just above the ankle. Wound is currently dressed, however, I have reviewed the images showing a wide amputation on the lateral aspect of the right foot with poor granulation tissue. LABORATORY VALUES: Creatinine of about 1.9, hemoglobin of about 10 g. ASSESSMENT AND PLAN: At this time, it appears that the patient will not have any further revascularization options. Whether hyperbaric oxygen is a consideration could be determined by wound care. Otherwise, anticipate that he will need a below-knee amputation. Job ID: [id number]
[2019-07-13] MEDS: Morphine 4 MG/ML VIAL SLOW IVP PRN ×2 (12:32→16:36)
--- NOTE | 2019-07-13 16:04 | PRG ---
DATE OF SERVICE: 07/13/2019 SUBJECTIVE: Mr. Flores is having ischemic rest pain, right foot. Dr. Heraclio Sultana had done multiple debridements on the right foot. Dr. Rosales has done interventional evaluations and cannot do anything more from an interventional standpoint to restore circulation. Dr. Strange saw him in consultation, and Dr. Strange did not think there was anything he could do to restore circulation. Because of the patient's nonhealing wounds on his foot and chronic rest pain of his foot, plan is for right [id number] amputation. I have talked to the patient and with his sister on speaker phone. Plan is to perform that on Tuesday, 07/16. He understands the risks and benefits and consents. We will hold his Lovenox after Tuesday night dose. His hemoglobin is 9.7. We will type and screen him. Job ID: [id number]
[2019-07-13] MEDS: HumaLOG 300 UNITS/3 ML VIAL SC PRN (16:37)
--- NOTE | 2019-07-13 17:38 | PDOC.HOSPP ---
- Subjective Encounter Date: 07/13/19 Encounter Time: 09:20 Subjective: Pt seen for followup re: hypertensive urgency. says he feels okay. - Objective Vital Signs & Weight: Vital Signs (12 hours) Temp Pulse Resp BP BP BP Pulse Ox 07/13/19 15:10 86 134/70 07/13/19 15:09 97.7 F 86 18 134/70 99 07/13/19 11:55 98 F 76 18 168/85 H 98 07/13/19 11:19 85 194/82 H 07/13/19 08:55 97 07/13/19 08:54 85 209/101 H 07/13/19 08:53 85 209/101 H 07/13/19 08:47 98.2 F 85 18 209/101 H 97 Weight Admit Weight 172 lb 6.4 oz Weight 172 lb 4.8 oz I&O: 07/12/19 07/13/19 07/14/19 06:59 06:59 06:59 Intake Total 1999 2577 890 Output Total 1000 2390 Balance 1000 187 890 Result Diagrams: 07/13/19 05:39 07/13/19 05:39 Additional Labs: Accuchecks 07/13/19 07/13/19 07/13/19 15:54 10:38 06:19 POC Glucose 187 H 142 H 103 Labs and MARs reviewed by ri Hospitalist ROS - Review of Systems Cardiovascular: denies: chest pain, palpitations, orthopnea, paroxysmal noc. dyspnea, edema, light headedness Gastrointestinal: denies: nausea, vomiting, abdominal pain, diarrhea, constipation, melena, hematochezia Musculoskeletal: reports: foot pain - Medication Medications: Active Medications Generic Name Dose Route Start Last Admin Trade Name Freq PRN Reason Stop Dose Admin Hydrocodone Bitart/Acetaminophen 1 tab 07/04/19 14:31 07/13/19 15:11 [place] 7.5/325 PO 1 tab Q4H PRN Administration Pain Aspirin 81 mg 07/02/19 09:00 07/13/19 08:53 Ecotrin PO 81 mg DAILY DARRYN Administration Enoxaparin Sodium 80 mg 07/05/19 21:00 07/12/19 20:49 Lovenox SC 07/15/19 12:00 80 mg 2100 DARRYN Administration Gabapentin 300 mg 07/05/19 09:00 07/13/19 15:10 Neurontin PO 300 mg TID DARRYN Administration Glipizide 5 mg 07/12/19 07:30 07/13/19 06:35 Glucotrol Xl PO 5 mg DAILY-AC DARRYN Administration Hydralazine HCl 10 mg 07/02/19 13:29 07/13/19 11:19 Apresoline SLOW IVP 10 mg Q4H PRN Administration Hypertension Hydralazine HCl 75 mg 07/12/19 15:00 07/13/19 15:10 Apresoline PO 75 mg TID DARRYN Administration Piperacillin Sod/Tazobactam 100 mls @ 200 mls/hr 07/05/19 21:00 07/13/19 15: 20 Sod 2.25 gm/ Sodium Chloride IVPB 100 mls 0300,0900,1500,2100 DARRYN Administration Insulin Human Lispro 0 units 07/03/19 12:34 07/09/19 21:13 Humalog SC 2 unit .BEDTIME SLIDING SC PRN Administration Bedtime Correctional Scale Insulin Human Lispro 0 units 07/07/19 18:47 07/13/19 16:37 Humalog SC 3 unit .AGGRESSIVE SLIDING PRN Administration Aggressive Correctional Scale Insulin Human NPH 20 unit 07/07/19 08:00 07/13/19 08:55 Humulin N SC 20 units 0800 DARRYN Administration Insulin Human NPH 15 unit 07/07/19 21:00 07/12/19 20:49 Humulin N SC 15 unit HS DARRYN Administration Metoprolol Tartrate 50 mg 07/12/19 21:00 07/13/19 08:54 Lopressor PO 50 mg BID DARRYN Administration Morphine Sulfate 4 mg 07/12/19 18:42 07/13/19 16:36 Morphine SLOW IVP 4 mg Q4H PRN Administration .BREAKTHROUGH PAIN Nifedipine 120 mg 07/13/19 09:00 07/13/19 08:53 Procardia Xl PO 120 mg DAILY DARRYN Administration Ondansetron HCl 4 mg 07/02/19 18:11 07/09/19 17:02 Zofran IVP 4 mg Q6H PRN Administration Nausea/Vomiting Oxycodone/Acetaminophen 1 tab 07/12/19 16:53 07/13/19 09:08 Percocet 5/325 PO 1 tab Q4H PRN Administration Pain Pantoprazole Sodium 40 mg 07/05/19 09:00 07/13/19 08:54 Protonix PO 40 mg DAILY DARRYN Administration Pregabalin 150 mg 07/05/19 21:00 07/13/19 08:54 Lyrica PO 150 mg BID DARRYN Administration Ropinirole HCl 0.25 mg 07/06/19 21:00 07/13/19 15:10 Requip PO 0.25 mg TID DARRYN Administration Sodium Chloride 10 ml 07/04/19 21:00 07/13/19 08:55 Flush - Normal Saline IVF Not Given Q12HR DARRYN Sodium Chloride 10 ml 07/04/19 14:19 07/07/19 10:24 Flush - Normal Saline IVF 10 ml PRN PRN Administration Saline Flush - Exam General Appearance: NAD Eye: anicteric sclera ENT: moist mucosa Neck: supple Heart: RRR, no gallops Respiratory: CTAB Gastrointestinal: soft, non-tender Skin: no rashes Skin - other findings: wound as documented Psychiatric: normal affect, normal behavior Hosp A/P (1) Hypertensive urgency Code(s): I16.0 - HYPERTENSIVE URGENCY Status: Acute (2) Acute worsening of stage 3 chronic kidney disease Code(s): N18.3 - CHRONIC KIDNEY DISEASE, STAGE 3 (MODERATE) Status: Acute (3) Uncontrolled diabetes mellitus Code(s): E11.65 - TYPE 2 DIABETES MELLITUS WITH HYPERGLYCEMIA Status: Acute (4) Dyslipidemia Code(s): E78.5 - HYPERLIPIDEMIA, UNSPECIFIED Status: Chronic (5) Diabetic foot infection Code(s): E11.628 - TYPE 2 DIABETES MELLITUS WITH OTHER SKIN COMPLICATIONS; L08.9 - LOCAL INFECTION OF THE SKIN AND SUBCUTANEOUS TISSUE, UNSP Status: Chronic (6) Acute appendicitis Code(s): K35.80 - UNSPECIFIED ACUTE APPENDICITIS Status: Resolved - Plan continue antibiotics, out of bed/ambulate Creatinine improved to 1.86 today. HTN improved. s/p appendectomy. Plan for below knee amputation noted.
[2019-07-13] MEDS: Enoxaparin Sodium 80 MG/0.8 ML SYRINGE SC SCH (20:31)
[2019-07-14] MEDS: Piperacillin/Tazobactam 2.25 GM in Sodium Chloride 0.9% 100 ML IVPB SCH ×4 (03:48→20:38)
[2019-07-14 05:31] LABS: #Basophils 0.1 thou/uL (0.0-0.2); #Eosinphils 0.6 thou/uL (0.0-0.7); #Lymphocytes 1.9 thou/uL (1.20-3.40); #Monocytes 0.6 thou/uL (0.11-0.59); #Neutrophils 3.9 thou/uL (1.40-6.50); %Basophils 0.8 % (0.0-1.0); %Lymphocytes 26.7 % (21.0-51.0); %Monocytes 7.9 % (0.0-10.0); %Neutrophils 55.7 % (42.0-75.0); Hemoglobin 9.2 g/dL (14.0-18.0); Mean Corpuscular HGB CONC 32.7 g/dL (32.0-36.0); Mean Corpuscular Hemoglobin 30.7 pg (27.0-31.0); Mean Corpuscular Volume 93.9 fL (78.0-98.0); Mean Platelet Volume 7.4 fL (7.4-10.4); Platelet Count 241 thou/uL (130-400)
[2019-07-14 05:56] LABS: Anion Gap 10 mmol/L (10-20); BUN (Urea Nitrogen) 29 mg/dL (8.4-25.7); Calc. Creatinine Clearance 47 mL/min (70-130); Calcium 8.5 mg/dL (7.8-10.44); Carbon Dioxide 27 mmol/L (22-29); Chloride 108 mmol/L (98-107); Estimated GFR-MDRD 36; Glucose 75 mg/dL (70-105); Potassium 4.2 mmol/L (3.5-5.1); Sodium 141 mmol/L (136-145)
[2019-07-14] MEDS: HYDROcodone/Acetaminophen 7.5/325 mg Tablet PO PRN ×3 (06:48→14:27)
[2019-07-14] MEDS: hydrALAZINE 25 MG TAB PO SCH ×3 (08:57→20:36)
[2019-07-14] MEDS: Pregabalin 75 MG CAP PO SCH ×2 (08:57→20:37)
[2019-07-14] MEDS: Gabapentin 300 MG CAP PO SCH ×3 (08:57→20:37)
[2019-07-14] MEDS: NIFEdipine XL 60 MG TAB PO SCH (08:57)
[2019-07-14] MEDS: Aspirin 81 mg Enteric Coated Tablet PO SCH (08:58)
[2019-07-14] MEDS: Metoprolol Tartrate 50 MG TAB PO SCH ×2 (08:58→20:37)
[2019-07-14] MEDS: Sodium Chloride 0.9% 1,000 ML IV SCH (08:59)
[2019-07-14] MEDS: NPH, Human Insulin Isophane 300 UNIT/3 ML VIAL SC SCH ×2 (08:59→20:37)
[2019-07-14] MEDS: rOPINIRole HCl 0.5 MG TAB PO SCH ×3 (08:59→20:36)
[2019-07-14] MEDS: Morphine 4 MG/ML VIAL SLOW IVP PRN (09:43)
--- NOTE | 2019-07-14 13:01 | PDOC.HOSPP ---
- Subjective Encounter Date: 07/14/19 Encounter Time: 09:20 Subjective: Pt seen for followup re: diabetic foot infection. No complaints today. - Objective Vital Signs & Weight: Vital Signs (12 hours) Temp Pulse Resp BP BP BP Pulse Ox 07/14/19 10:56 97.9 F 76 16 170/79 H 100 07/14/19 08:57 77 165/75 H 07/14/19 08:55 96 07/14/19 08:19 97.8 F 77 18 165/75 H 96 07/14/19 04:12 97.6 F 78 18 119/64 97 Weight Admit Weight 172 lb 6.4 oz Weight 172 lb 4.8 oz I&O: 07/13/19 07/14/19 07/15/19 06:59 06:59 06:59 Intake Total 2577 3880 350 Output Total 2390 900 Balance 187 2980 350 Result Diagrams: 07/14/19 05:14 07/14/19 05:14 Additional Labs: Accuchecks 07/14/19 07/14/19 07/13/19 11:01 05:43 20:42 POC Glucose 86 72 144 H 07/13/19 07/12/19 07/12/19 15:54 21:04 16:08 POC Glucose 187 H 160 H 244 H labs and MARs reviewed by id Hospitalist ROS - Review of Systems Cardiovascular: denies: chest pain, palpitations, orthopnea, paroxysmal noc. dyspnea, edema, light headedness Gastrointestinal: denies: nausea, vomiting, abdominal pain, diarrhea, constipation, melena, hematochezia - Medication Medications: Active Medications Generic Name Dose Route Start Last Admin Trade Name Freq PRN Reason Stop Dose Admin Hydrocodone Bitart/Acetaminophen 1 tab 07/04/19 14:31 07/14/19 11:22 [place] 7.5/325 PO 1 tab Q4H PRN Administration Pain Aspirin 81 mg 07/02/19 09:00 07/14/19 08:58 Ecotrin PO 81 mg DAILY DARRYN Administration Enoxaparin Sodium 80 mg 07/05/19 21:00 07/13/19 20:31 Lovenox SC 07/15/19 12:00 80 mg 2100 DARRYN Administration Gabapentin 300 mg 07/05/19 09:00 07/14/19 08:57 Neurontin PO 300 mg TID ADRRYN Administration Glipizide 5 mg 07/12/19 07:30 07/14/19 06:49 Glucotrol Xl PO 5 mg DAILY-AC DARRYN Administration Hydralazine HCl 10 mg 07/02/19 13:29 07/13/19 11:19 Apresoline SLOW IVP 10 mg Q4H PRN Administration Hypertension Hydralazine HCl 75 mg 07/12/19 15:00 07/14/19 08:57 Apresoline PO 75 mg TID DARRYN Administration Piperacillin Sod/Tazobactam 100 mls @ 200 mls/hr 07/05/19 21:00 07/14/19 08: 56 Sod 2.25 gm/ Sodium Chloride IVPB 100 mls 0300,0900,1500,2100 DARRYN Administration Sodium Chloride 1,000 mls @ 100 mls/hr 07/16/19 08:00 07/14/19 08:59 Normal Saline 0.9% IV Not Given .Q10H DARRYN Insulin Human Lispro 0 units 07/03/19 12:34 07/09/19 21:13 Humalog SC 2 unit .BEDTIME SLIDING SC PRN Administration Bedtime Correctional Scale Insulin Human Lispro 0 units 07/07/19 18:47 07/13/19 16:37 Humalog SC 3 unit .AGGRESSIVE SLIDING PRN Administration Aggressive Correctional Scale Insulin Human NPH 20 unit 07/07/19 08:00 07/14/19 08:59 Humulin N SC 20 units 0800 DARRYN Administration Insulin Human NPH 15 unit 07/07/19 21:00 07/13/19 20:32 Humulin N SC 15 unit HS DARRYN Administration Metoprolol Tartrate 50 mg 07/12/19 21:00 07/14/19 08:58 Lopressor PO 50 mg BID DARRYN Administration Morphine Sulfate 4 mg 07/12/19 18:42 07/14/19 09:43 Morphine SLOW IVP 4 mg Q4H PRN Administration .BREAKTHROUGH PAIN Nifedipine 120 mg 07/13/19 09:00 07/14/19 08:57 Procardia Xl PO 120 mg DAILY DARRYN Administration Ondansetron HCl 4 mg 07/02/19 18:11 07/09/19 17:02 Zofran IVP 4 mg Q6H PRN Administration Nausea/Vomiting Oxycodone/Acetaminophen 1 tab 07/12/19 16:53 07/13/19 18:02 Percocet 5/325 PO 1 tab Q4H PRN Administration Pain Pantoprazole Sodium 40 mg 07/05/19 09:00 07/14/19 08:58 Protonix PO 40 mg DAILY DARRYN Administration Pregabalin 150 mg 07/05/19 21:00 07/14/19 08:57 Lyrica PO 150 mg BID DARRYN Administration Ropinirole HCl 0.25 mg 07/06/19 21:00 07/14/19 08:59 Requip PO 0.25 mg TID DARRYN Administration Sodium Chloride 10 ml 07/04/19 21:00 07/14/19 08:58 Flush - Normal Saline IVF Not Given Q12HR DARRYN Sodium Chloride 10 ml 07/04/19 14:19 07/07/19 10:24 Flush - Normal Saline IVF 10 ml PRN PRN Administration Saline Flush - Exam General Appearance: NAD Eye: anicteric sclera ENT: moist mucosa Neck: supple Heart: RRR Respiratory: CTAB Gastrointestinal: soft, non-tender Extremities: no clubbing Extremities - other findings: wound as documented Psychiatric: normal affect, normal behavior Hosp A/P (1) Diabetic foot infection Code(s): E11.628 - TYPE 2 DIABETES MELLITUS WITH OTHER SKIN COMPLICATIONS; L08.9 - LOCAL INFECTION OF THE SKIN AND SUBCUTANEOUS TISSUE, UNSP Status: Chronic (2) Acute worsening of stage 3 chronic kidney disease Code(s): N18.3 - CHRONIC KIDNEY DISEASE, STAGE 3 (MODERATE) Status: Acute (3) Uncontrolled diabetes mellitus Code(s): E11.65 - TYPE 2 DIABETES MELLITUS WITH HYPERGLYCEMIA Status: Acute (4) Dyslipidemia Code(s): E78.5 - HYPERLIPIDEMIA, UNSPECIFIED Status: Chronic (5) Acute appendicitis Code(s): K35.80 - UNSPECIFIED ACUTE APPENDICITIS Status: Resolved (6) Hypertensive urgency Code(s): I16.0 - HYPERTENSIVE URGENCY Status: Resolved - Plan out of bed/ambulate Creatinine 1.92 today. HTN improved. Blood sugars improved. s/p appendectomy. For BKA on Tuesday.
[2019-07-14] MEDS: Enoxaparin Sodium 80 MG/0.8 ML SYRINGE SC SCH (20:35)
[2019-07-15] MEDS: Morphine 4 MG/ML VIAL SLOW IVP PRN ×4 (02:45→20:24)
[2019-07-15] MEDS: Piperacillin/Tazobactam 2.25 GM in Sodium Chloride 0.9% 100 ML IVPB SCH ×4 (02:46→20:08)
[2019-07-15] MEDS: rOPINIRole HCl 0.5 MG TAB PO SCH ×3 (09:23→20:08)
[2019-07-15] MEDS: Metoprolol Tartrate 50 MG TAB PO SCH ×2 (09:24→20:09)
[2019-07-15] MEDS: Gabapentin 300 MG CAP PO SCH ×3 (09:24→20:10)
[2019-07-15] MEDS: hydrALAZINE 25 MG TAB PO SCH ×3 (09:24→20:09)
[2019-07-15] MEDS: NIFEdipine XL 60 MG TAB PO SCH (09:24)
[2019-07-15] MEDS: Aspirin 81 mg Enteric Coated Tablet PO SCH (09:24)
[2019-07-15] MEDS: Pregabalin 75 MG CAP PO SCH ×2 (09:25→20:09)
[2019-07-15] MEDS: NPH, Human Insulin Isophane 300 UNIT/3 ML VIAL SC SCH ×2 (09:25→20:10)
[2019-07-15] MEDS: oxyCODONE/Acetaminophen 5 mg/325 mg Tablet PO PRN ×3 (12:39→20:23)
--- NOTE | 2019-07-15 14:00 | PRG ---
DATE OF SERVICE: SUBJECTIVE: The patient noted with the following vital signs. OBJECTIVE: VITAL SIGNS: Afebrile, blood pressure 162/72, temperature 98.7, pulse 98, respiratory rate 16, and O2 saturation of 98%. HEENT: Unremarkable. CARDIOVASCULAR SYSTEM: First and second heart sounds were heard. RESPIRATORY SYSTEM: Clear to auscultation. DIGESTIVE SYSTEM: Revealed benign abdomen. Positive bowel sounds. EXTREMITIES: No peripheral edema. SKIN: No new gross rash. LYMPHATICS: No peripheral lymphadenopathy. IMPRESSION: Acute on chronic kidney disease, which seems to have stabilized and creatinine of 1.92. PLAN: 1. Follow up with Nephrology as outpatient. 2. Renally dose all medications. 3. Further management to be dependent on the clinical course. Job ID: [id number]
--- NOTE | 2019-07-15 18:12 | PDOC.HOSPP ---
- Subjective Encounter Date: 07/15/19 Encounter Time: 08:40 Subjective: Pt seen for followup re: diabetic foot infection. Feels better today. - Objective Vital Signs & Weight: Vital Signs (12 hours) Temp Pulse Resp BP BP Pulse Ox 07/15/19 15:58 97 155/72 H 07/15/19 09:24 98 163/72 H 07/15/19 07:30 98.7 F 98 16 163/72 H 98 Weight Admit Weight 172 lb 6.4 oz Weight 172 lb 4.8 oz I&O: 07/14/19 07/15/19 07/16/19 06:59 06:59 06:59 Intake Total 3880 2670 Output Total 900 2375 Balance 2980 295 Result Diagrams: 07/14/19 05:14 07/14/19 05:14 Additional Labs: Accuchecks 07/15/19 07/15/19 07/15/19 16:05 10:44 05:32 POC Glucose 132 H 99 80 07/14/19 20:04 POC Glucose 119 H labs and MARs reviewed by mo Hospitalist ROS - Review of Systems Constitutional: denies: fever, chills, sweats, weakness, malaise Neurological: denies: weakness, numbness, incoordination, change in speech, confusion, seizures - Medication Medications: Active Medications Generic Name Dose Route Start Last Admin Trade Name Freq PRN Reason Stop Dose Admin Aspirin 81 mg 07/02/19 09:00 07/15/19 09:24 Ecotrin PO 81 mg DAILY DARRYN Administration Gabapentin 300 mg 07/05/19 09:00 07/15/19 15:58 Neurontin PO 300 mg TID DARRYN Administration Glipizide 5 mg 07/12/19 07:30 07/15/19 06:23 Glucotrol Xl PO 5 mg DAILY-AC DARRYN Administration Hydralazine HCl 10 mg 07/02/19 13:29 07/13/19 11:19 Apresoline SLOW IVP 10 mg Q4H PRN Administration Hypertension Hydralazine HCl 75 mg 07/12/19 15:00 07/15/19 15:58 Apresoline PO 75 mg TID DARRYN Administration Piperacillin Sod/Tazobactam 100 mls @ 200 mls/hr 07/05/19 21:00 07/15/19 16: 00 Sod 2.25 gm/ Sodium Chloride IVPB 100 mls 0300,0900,1500,2100 DARRYN Administration Sodium Chloride 1,000 mls @ 100 mls/hr 07/16/19 08:00 07/14/19 08:59 Normal Saline 0.9% IV Not Given .Q10H DARRYN Insulin Human Lispro 0 units 07/03/19 12:34 07/09/19 21:13 Humalog SC 2 unit .BEDTIME SLIDING SC PRN Administration Bedtime Correctional Scale Insulin Human Lispro 0 units 07/07/19 18:47 07/13/19 16:37 Humalog SC 3 unit .AGGRESSIVE SLIDING PRN Administration Aggressive Correctional Scale Insulin Human NPH 20 unit 07/07/19 08:00 07/15/19 09:25 Humulin N SC 20 units 0800 DARRYN Administration Insulin Human NPH 15 unit 07/07/19 21:00 07/14/19 20:37 Humulin N SC 15 unit HS DARRYN Administration Metoprolol Tartrate 50 mg 07/12/19 21:00 07/15/19 09:24 Lopressor PO 50 mg BID DARRYN Administration Morphine Sulfate 4 mg 07/12/19 18:42 07/15/19 16:27 Morphine SLOW IVP 4 mg Q4H PRN Administration .BREAKTHROUGH PAIN Nifedipine 120 mg 07/13/19 09:00 07/15/19 09:24 Procardia Xl PO 120 mg DAILY DARRYN Administration Ondansetron HCl 4 mg 07/02/19 18:11 07/09/19 17:02 Zofran IVP 4 mg Q6H PRN Administration Nausea/Vomiting Oxycodone/Acetaminophen 1 tab 07/12/19 16:53 07/15/19 16:27 Percocet 5/325 PO 1 tab Q4H PRN Administration Pain Pantoprazole Sodium 40 mg 07/05/19 09:00 07/15/19 09:25 Protonix PO 40 mg DAILY DARRYN Administration Pregabalin 150 mg 07/05/19 21:00 07/15/19 09:25 Lyrica PO 150 mg BID DARRYN Administration Ropinirole HCl 0.25 mg 07/06/19 21:00 07/15/19 15:57 Requip PO 0.25 mg TID DARRYN Administration Sodium Chloride 10 ml 07/04/19 21:00 07/15/19 09:26 Flush - Normal Saline IVF 10 ml Q12HR DARRYN Administration Sodium Chloride 10 ml 07/04/19 14:19 07/07/19 10:24 Flush - Normal Saline IVF 10 ml PRN PRN Administration Saline Flush - Exam General Appearance: NAD, awake alert Eye: anicteric sclera ENT: normocephalic atraumatic, no oropharyngeal lesions Neck: supple, symmetric, no lymphadenopathy Heart: RRR, no rubs Respiratory: CTAB, no wheezes Gastrointestinal: soft, non-tender Extremities - other findings: R foot wound Neurological: no weakness Psychiatric: normal affect, normal behavior Hosp A/P (1) Diabetic foot infection Code(s): E11.628 - TYPE 2 DIABETES MELLITUS WITH OTHER SKIN COMPLICATIONS; L08.9 - LOCAL INFECTION OF THE SKIN AND SUBCUTANEOUS TISSUE, UNSP Status: Chronic (2) Acute worsening of stage 3 chronic kidney disease Code(s): N18.3 - CHRONIC KIDNEY DISEASE, STAGE 3 (MODERATE) Status: Acute (3) Uncontrolled diabetes mellitus Code(s): E11.65 - TYPE 2 DIABETES MELLITUS WITH HYPERGLYCEMIA Status: Acute (4) Dyslipidemia Code(s): E78.5 - HYPERLIPIDEMIA, UNSPECIFIED Status: Chronic (5) Acute appendicitis Code(s): K35.80 - UNSPECIFIED ACUTE APPENDICITIS Status: Resolved (6) Hypertensive urgency Code(s): I16.0 - HYPERTENSIVE URGENCY Status: Resolved - Plan plan discussed w/ family, PT/OT, out of bed/ambulate Pt to have R BKA tomorrow. HTN improved. Blood sugars improved. s/p appendectomy.
[2019-07-16] MEDS: Piperacillin/Tazobactam 2.25 GM in Sodium Chloride 0.9% 100 ML IVPB SCH (03:16)
[2019-07-16 05:28] LABS: #Basophils 0.1 thou/uL (0.0-0.2); #Eosinphils 0.6 thou/uL (0.0-0.7); #Lymphocytes 1.6 thou/uL (1.20-3.40); #Monocytes 0.7 thou/uL (0.11-0.59); #Neutrophils 4.6 thou/uL (1.40-6.50); %Basophils 0.7 % (0.0-1.0); %Eosinophils 7.8 % (0.0-10.0); %Lymphocytes 21.1 % (21.0-51.0); %Monocytes 9.7 % (0.0-10.0); %Neutrophils 60.7 % (42.0-75.0); Hemoglobin 8.8 g/dL (14.0-18.0); Mean Corpuscular HGB CONC 32.7 g/dL (32.0-36.0); Mean Corpuscular Hemoglobin 30.2 pg (27.0-31.0); Mean Corpuscular Volume 92.4 fL (78.0-98.0); Mean Platelet Volume 7.8 fL (7.4-10.4); Platelet Count 223 thou/uL (130-400); RBC Distribution Width 13.2 % (11.5-14.5); Red Blood Cell (RBC) Count 2.93 mill/uL (4.70-6.10); White Blood Cell (WBC) Count 7.5 thou/uL (4.8-10.8)
[2019-07-16 05:57] LABS: ALT (SGPT) 40 U/L (8-55); AST (SGOT) 53 U/L (5-34); Albumin 2.8 g/dL (3.5-5.0); Alkaline Phosphatase 237 U/L (40-110); Anion Gap 10 mmol/L (10-20); BUN (Urea Nitrogen) 34 mg/dL (8.4-25.7); Bilirubin, Total 0.2 mg/dL (0.2-1.2); Calc. Creatinine Clearance 45 mL/min (70-130); Calcium 8.6 mg/dL (7.8-10.44); Carbon Dioxide 26 mmol/L (22-29); Chloride 110 mmol/L (98-107); Estimated GFR-MDRD 34; Globulin 3.6 g/dL (2.4-3.5); Glucose 89 mg/dL (70-105); Potassium 4.2 mmol/L (3.5-5.1); Protein, Total 6.4 g/dL (6.0-8.3); Sodium 142 mmol/L (136-145)
[2019-07-16] MEDS ORDERED: Midazolam HCl 2 mg/2 ml Vial ONE (06:58)
[2019-07-16] MEDS ORDERED: Fentanyl 100 MCG/2 ML VIAL ONE ×2 (06:58→07:15)
[2019-07-16] MEDS ORDERED: Ropivacaine 0.2% 550 ML 550 ML NERVE BLCK SCH (07:18)
[2019-07-16] MEDS ORDERED: Promethazine HCl 25 MG/ML VIAL IM PRN ×2 (07:18→07:33)
[2019-07-16] MEDS ORDERED: HYDROcodone/Acetaminophen 10/325 mg Tablet PO PRN (07:18)
[2019-07-16] MEDS ORDERED: traMADol HCl 50 MG TAB PO PRN (07:18)
[2019-07-16] MEDS ORDERED: Ondansetron PF 4 MG/2 ML Vial IVP PRN (07:18)
[2019-07-16] MEDS ORDERED: Zolpidem Tartrate 5 MG TAB PO PRN (07:18)
[2019-07-16] MEDS ORDERED: Promethazine HCl 25 MG/ML VIAL SLOW IVP PRN (07:33)
[2019-07-16] MEDS ORDERED: Ondansetron HCl/PF 4 MG/2 ML Vial IVP PRN (07:33)
[2019-07-16] MEDS ORDERED: Piperacillin/Tazobactam 3.375 GM VIAL ONE (08:24)
[2019-07-16] MEDS ORDERED: Acetaminophen 500 MG TAB PO PRN (08:59)
[2019-07-16] MEDS: Gabapentin 300 MG CAP PO SCH ×3 (09:34→22:13)
[2019-07-16] MEDS: Aspirin 81 mg Enteric Coated Tablet PO SCH (09:34)
[2019-07-16] MEDS: NPH, Human Insulin Isophane 300 UNIT/3 ML VIAL SC SCH ×2 (09:34→22:14)
[2019-07-16] MEDS: Pregabalin 75 MG CAP PO SCH ×2 (09:35→22:13)
[2019-07-16] MEDS: rOPINIRole HCl 0.25 MG TAB PO SCH ×3 (10:00→22:12)
[2019-07-16] MEDS: Metoprolol Tartrate 50 MG TAB PO SCH ×2 (10:07→22:12)
[2019-07-16] MEDS: NIFEdipine XL 60 MG TAB PO SCH (10:07)
[2019-07-16] MEDS: hydrALAZINE 25 MG TAB PO SCH ×3 (10:08→22:12)
--- NOTE | 2019-07-16 10:11 | OP ---
DATE OF PROCEDURE: 07/16/2019 PREOPERATIVE DIAGNOSES: Peripheral arterial disease with arterial sclerosis with gangrene, right foot, and ischemic rest pain. Non-reconstructible disease, status post intervention by Dr. Rosales. CONSULTATION: Dr. Strange. POSTOPERATIVE DIAGNOSES: Peripheral arterial disease with arterial sclerosis with gangrene, right foot, and ischemic rest pain. Non-reconstructible disease, status post intervention by Dr. Rosales. PROCEDURE PERFORMED: Right below-knee amputation. ANESTHESIA: General anesthesia, regional catheter. ESTIMATED BLOOD LOSS: 230 mL. BLOOD TRANSFUSION: 1 unit of blood postop. Preoperative hemoglobin of 8.3. DESCRIPTION OF PROCEDURE: The patient was taken to the operating room, where under regional and general anesthesia LMA, his right lower extremity was prepared with ChloraPrep and draped in routine fashion. Incision was made for a long posterior flap BKA. Incision was carried down to skin and subcutaneous tissue and fascia dividing the muscles with the cautery, dividing the vascular bundles and neuro bundles between clamps, ligated with 2-0 silk ties. Periosteum was stripped cephalad and tibia transected with a Gigli saw beveling anterior edge of cephalad and smoothened the edge with a rasp. Fibula cut about an inch above the cut edge of the tibia. Good hemostasis was obtained with cautery and 2-0 silk ties and 2-0 Vicryl. Wound irrigated. Good hemostasis was noted. Fascia approximated with interrupted [id number] and continuous suture of 2-0 Vicryl. Skin with vita. Sterile dressing applied. Job ID: [id number]
[2019-07-16] MEDS: HumaLOG 300 UNITS/3 ML VIAL SC PRN ×2 (11:52→17:31)
[2019-07-16] MEDS: Sodium Chloride 0.9% 1,000 ML IV SCH ×2 (11:54→14:48)
[2019-07-16] MEDS ORDERED: Ropivacaine 0.5% HCl/PF (150 MG/30 ML VIAL) ONE (13:13)
[2019-07-16] MEDS ORDERED: Ondansetron PF 4 MG/2 ML Vial ONE (13:23)
[2019-07-16] MEDS ORDERED: ePHEDrine 50 MG/ML VIAL ONE (13:23)
[2019-07-16] MEDS ORDERED: PHENYLEPHRINE-NS 100 MCG/ML 10 ML SYRINGE ONE (13:23)
[2019-07-16] MEDS ORDERED: PROPOFOL 200 MG/20 ML VIAL ONE (13:23)
--- NOTE | 2019-07-16 20:04 | PRG ---
DATE OF SERVICE: 07/16/2019 SUBJECTIVE: The patient is noted with the following vital signs. OBJECTIVE: VITAL SIGNS: Afebrile, temperature 98.1, pulse is 94, respiratory rate of 16, O2 saturations 98%, and blood pressure 131/68. HEENT: Unremarkable. CARDIOVASCULAR SYSTEM: First and second heart sounds were heard. RESPIRATORY SYSTEM: Clear to auscultation. DIGESTIVE SYSTEM: Reviewed a benign abdomen. EXTREMITIES: Showed evidence of below-knee amputation today. IMPRESSION: 1. Acute on chronic kidney disease, which seems to be labile. 2. Severe peripheral vascular disease in the context of diabetic complication, status post below-knee amputation. PLAN: 1. We will continue current renal supportive measures. 2. We will not be surprised if the patient's renal function worsen, though he might get better with elimination of the infective source. 3. Further management to be dependent on the clinical course. Job ID: [id number]
[2019-07-16] MEDS: Fentanyl 100 MCG/2 ML VIAL IV PRN (22:13)
[2019-07-16] MEDS: HYDROcodone/Acetaminophen 10/325 mg Tablet PO PRN (22:13)
[2019-07-17] MEDS: HYDROcodone/Acetaminophen 10/325 mg Tablet PO PRN ×5 (02:31→20:26)
[2019-07-17] MEDS: Sodium Chloride 0.9% 1,000 ML IV SCH (04:15)
[2019-07-17] MEDS: Fentanyl 100 MCG/2 ML VIAL IV PRN ×2 (05:38→13:27)
[2019-07-17 05:46] LABS: #Eosinphils 0.1 thou/uL (0.0-0.7); #Lymphocytes 1.4 thou/uL (1.20-3.40); #Neutrophils 7.8 thou/uL (1.40-6.50); %Basophils 0.4 % (0.0-1.0); %Eosinophils 0.7 % (0.0-10.0); %Lymphocytes 13.4 % (21.0-51.0); %Monocytes 10.1 % (0.0-10.0); %Neutrophils 75.5 % (42.0-75.0); Hemoglobin 8.7 g/dL (14.0-18.0); Mean Corpuscular HGB CONC 33.5 g/dL (32.0-36.0); Mean Corpuscular Hemoglobin 30.7 pg (27.0-31.0); Mean Corpuscular Volume 91.7 fL (78.0-98.0); Mean Platelet Volume 7.5 fL (7.4-10.4); Platelet Count 219 thou/uL (130-400); RBC Distribution Width 13.5 % (11.5-14.5); Red Blood Cell (RBC) Count 2.84 mill/uL (4.70-6.10); White Blood Cell (WBC) Count 10.3 thou/uL (4.8-10.8)
[2019-07-17 06:01] LABS: Anion Gap 13 mmol/L (10-20); BUN (Urea Nitrogen) 40 mg/dL (8.4-25.7); Calc. Creatinine Clearance 46 mL/min (70-130); Calcium 8.3 mg/dL (7.8-10.44); Carbon Dioxide 22 mmol/L (22-29); Chloride 106 mmol/L (98-107); Estimated GFR-MDRD 35; Glucose 124 mg/dL (70-105); Potassium 4.1 mmol/L (3.5-5.1); Sodium 137 mmol/L (136-145)
--- NOTE | 2019-07-17 06:56 | PDOC.HOSPP ---
- Subjective Encounter Date: 07/16/19 Encounter Time: 10:00 Subjective: Patient seen and examined for diabetic foot infection. Pain controlled. No fever /CP. No other complaints. No overnight events - Objective Vital Signs & Weight: Vital Signs (12 hours) Temp Pulse Resp BP BP Pulse Ox 07/17/19 04:26 99.1 F 97 16 124/65 94 L 07/17/19 02:30 98.9 F 07/17/19 00:35 100.7 F H 108 H 16 127/72 92 L 07/16/19 22:12 112 H 07/16/19 20:00 100.6 F H 112 H 16 131/60 96 Weight Admit Weight 172 lb 6.4 oz Weight 172 lb 4.8 oz I&O: 07/15/19 07/16/19 07/17/19 06:59 06:59 06:59 Intake Total 2670 1930 2690 Output Total 2375 1475 1500 Balance 538 934 6821 Result Diagrams: 07/17/19 05:27 07/17/19 05:27 Additional Labs: Accuchecks 07/17/19 07/16/19 07/16/19 06:06 20:55 11:51 POC Glucose 100 167 H 179 H Hospitalist ROS - Review of Systems Respiratory: denies: cough, dry, shortness of breath, hemoptysis, SOB with excertion, pleuritic pain, sputum, wheezing, other Cardiovascular: denies: chest pain, palpitations, orthopnea, paroxysmal noc. dyspnea, edema, light headedness, other - Medication Medications: Active Medications Generic Name Dose Route Start Last Admin Trade Name Freq PRN Reason Stop Dose Admin Hydrocodone Bitart/Acetaminophen 2 tab 07/16/19 07:18 07/17/19 06:31 [place] 10/325 PO 2 tab Q4H PRN Administration PAIN (4-6) Aspirin 81 mg 07/02/19 09:00 07/16/19 09:34 Ecotrin PO Not Given DAILY DARRYN Fentanyl 50 mcg 07/16/19 07:19 07/17/19 05:38 Sublimaze IV 50 mcg Q1H PRN Administration Breakthrough Pain Gabapentin 300 mg 07/05/19 09:00 07/16/19 22:13 Neurontin PO 300 mg TID DARRYN Administration Glipizide 5 mg 07/12/19 07:30 07/17/19 06:33 Glucotrol Xl PO 5 mg DAILY-AC DARRYN Administration Hydralazine HCl 10 mg 07/02/19 13:29 07/13/19 11:19 Apresoline SLOW IVP 10 mg Q4H PRN Administration Hypertension Hydralazine HCl 75 mg 07/12/19 15:00 07/16/19 22:12 Apresoline PO 75 mg TID DARRYN Administration Sodium Chloride 1,000 mls @ 100 mls/hr 07/16/19 08:00 07/17/19 04:15 Normal Saline 0.9% IV Not Given .Q10H DARRYN Insulin Human Lispro 0 units 07/03/19 12:34 07/09/19 21:13 Humalog SC 2 unit .BEDTIME SLIDING SC PRN Administration Bedtime Correctional Scale Insulin Human Lispro 0 units 07/07/19 18:47 07/16/19 17:31 Humalog SC 3 unit .AGGRESSIVE SLIDING PRN Administration Aggressive Correctional Scale Insulin Human NPH 20 unit 07/07/19 08:00 07/16/19 09:34 Humulin N SC Not Given 0800 [facility] Insulin Human NPH 15 unit 07/07/19 21:00 07/16/19 22:14 Humulin N SC 15 unit HS DARRYN Administration Metoprolol Tartrate 50 mg 07/12/19 21:00 07/16/19 22:12 Lopressor PO 50 mg BID DARRYN Administration Morphine Sulfate 4 mg 07/12/19 18:42 07/15/19 20:24 Morphine SLOW IVP 4 mg Q4H PRN Administration .BREAKTHROUGH PAIN Nifedipine 120 mg 07/13/19 09:00 07/16/19 10:07 Procardia Xl PO 120 mg DAILY DARRYN Administration Ondansetron HCl 4 mg 07/02/19 18:11 07/09/19 17:02 Zofran IVP 4 mg Q6H PRN Administration Nausea/Vomiting Oxycodone/Acetaminophen 1 tab 07/12/19 16:53 07/15/19 20:23 Percocet 5/325 PO 1 tab Q4H PRN Administration Pain Pantoprazole Sodium 40 mg 07/05/19 09:00 07/16/19 09:35 Protonix PO Not Given DAILY DARRYN Pregabalin 150 mg 07/05/19 21:00 07/16/19 22:13 Lyrica PO 150 mg BID DARRYN Administration Ropinirole HCl 0.25 mg 07/16/19 09:00 07/16/19 22:12 Requip PO 0.25 mg TID DARRYN Administration Sodium Chloride 10 ml 07/04/19 21:00 07/16/19 22:15 Flush - Normal Saline IVF 10 ml Q12HR DARRYN Administration Sodium Chloride 10 ml 07/04/19 14:19 07/07/19 10:24 Flush - Normal Saline IVF 10 ml PRN PRN Administration Saline Flush - Exam General Appearance: NAD Neck: supple, no JVD Heart: RRR, no gallops Respiratory: CTAB, no rales Gastrointestinal: soft, non-tender, normal bowel sounds Extremities: no edema Extremities - other findings: RLE dressing + Hosp A/P - Plan plan discussed w/ family Diabetic foot infection s/p R BKA Acute appendicitis - resolved DM2 -better controlled BELKYS on CKD2 PVD HTN GERD h/o DVT - on Lovenox Mod PEM PLAN: Cont NPH to 20 AM and 15 PM Cont Hydralazine/Procardia XL/Metoprolol On Lovenox due to DVT Lisinopril on hold due to BELKYS Cont wound care AM labs Consult PT Cont other meds
[2019-07-17] MEDS: traMADol HCl 50 MG TAB PO PRN ×2 (07:38→22:15)
[2019-07-17] MEDS: Pregabalin 75 MG CAP PO SCH ×2 (07:39→20:24)
[2019-07-17] MEDS: Aspirin 81 mg Enteric Coated Tablet PO SCH (07:40)
[2019-07-17] MEDS: NIFEdipine XL 60 MG TAB PO SCH (07:40)
[2019-07-17] MEDS: hydrALAZINE 25 MG TAB PO SCH ×3 (07:41→20:26)
[2019-07-17] MEDS: Metoprolol Tartrate 50 MG TAB PO SCH ×2 (07:42→20:26)
[2019-07-17] MEDS: rOPINIRole HCl 0.25 MG TAB PO SCH ×3 (07:42→20:26)
[2019-07-17] MEDS: Gabapentin 300 MG CAP PO SCH ×3 (07:42→20:26)
[2019-07-17] MEDS: NPH, Human Insulin Isophane 300 UNIT/3 ML VIAL SC SCH ×2 (07:42→22:17)
--- NOTE | 2019-07-17 09:53 | PRG ---
DATE OF SERVICE: 07/17/2019 SUBJECTIVE: Kyle Flores is doing well today. He underwent a right BKA. He had 1 unit of blood. OBJECTIVE: VITAL SIGNS: Temperature 98.7 degrees, heart rate 99, blood pressure 158/79. LUNGS: Clear to auscultation. CARDIAC: Regular rate and rhythm. No murmur or gallop. ABDOMEN: Soft. EXTREMITIES: BKA stump dressing dry. LABORATORY DATA: White count this morning is 8.7, hemoglobin is 10.3. BUN is 40, creatinine is 1.97, glucose is 124. ASSESSMENT/PLAN: Doing well. Status post right below-knee amputation. Expect to be able to transfer to rehab tomorrow. We will plan to remove his dressings tomorrow and place a stump caramel cutter machine. He has been advised to prevent right knee contracture or placing blankets or pillows below his knee to promote knee extension. He will work with Physical Therapy for transfers, ambulation with a walker and crutches. He has been advised to be very careful that he does not fall and injure his stump. Job ID: [id number]
[2019-07-17] MEDS: Morphine 4 MG/ML VIAL SLOW IVP PRN (10:12)
[2019-07-17 12:17] VITALS: BMI 30.7
[2019-07-17] MEDS: Ondansetron PF 4 MG/2 ML Vial IVP PRN (13:04)
--- NOTE | 2019-07-17 19:42 | PRG ---
DATE OF SERVICE: 07/17/2019 SUBJECTIVE: The patient was seen and examined today, being the July, noted with the following vital signs. OBJECTIVE: VITAL SIGNS: Afebrile. Temperature 98.5, pulse 93, blood pressure of 151/69, respiratory rate of 16, O2 saturation of 96%. HEENT: Unremarkable. CARDIOVASCULAR SYSTEM: First and second heart sounds were heard. RESPIRATORY: Clear to auscultation. DIGESTIVE SYSTEM: Revealed a benign abdomen with positive bowel sounds. EXTREMITIES: No peripheral edema. SKIN: No new gross rash. LYMPHATICS: No peripheral lymphadenopathy. IMPRESSION: 1. Acute on chronic kidney disease, which seems to be improved. 2. Status post amputation. 3. Poorly controlled diabetes. 4. Chronic kidney disease in the context of diabetic nephropathy. PLAN: 1. Continue renal supportive measures. 2. Agree with discontinuation of IV fluid. 3. Continue to monitor the hemodynamics and adjust medications appropriately. Job ID: [id number]
[2019-07-18] MEDS: HYDROcodone/Acetaminophen 10/325 mg Tablet PO PRN ×3 (00:20→15:12)
[2019-07-18] MEDS: NPH, Human Insulin Isophane 300 UNIT/3 ML VIAL SC SCH (08:25)
[2019-07-18] MEDS: Aspirin 81 mg Enteric Coated Tablet PO SCH (08:26)
[2019-07-18] MEDS: Gabapentin 300 MG CAP PO SCH ×2 (08:27→15:07)
[2019-07-18] MEDS: NIFEdipine XL 60 MG TAB PO SCH (08:27)
[2019-07-18] MEDS: Metoprolol Tartrate 50 MG TAB PO SCH (08:27)
[2019-07-18] MEDS: hydrALAZINE 25 MG TAB PO SCH ×2 (08:27→15:07)
[2019-07-18] MEDS: Pregabalin 75 MG CAP PO SCH (08:28)
[2019-07-18] MEDS: rOPINIRole HCl 0.25 MG TAB PO SCH ×2 (08:28→15:07)
[2019-07-18] MEDS: Morphine 4 MG/ML VIAL SLOW IVP PRN (08:34)
--- NOTE | 2019-07-18 08:45 | PDOC.HOSPP ---
- Subjective Encounter Date: 07/17/19 Encounter Time: 12:00 Subjective: Patient seen and examined for diabetic foot infection. Pain controlled. No new complaints. No overnight events - Objective Vital Signs & Weight: Vital Signs (12 hours) Temp Pulse Resp BP BP Pulse Ox 07/18/19 08:27 86 07/18/19 07:26 98.6 F 86 16 156/77 H 96 07/18/19 04:05 98.6 F 104 H 12 159/74 H 98 07/17/19 23:51 98.8 F 100 16 136/71 100 Weight Admit Weight 172 lb 6.4 oz Weight 209 lb 11.2 oz I&O: 07/17/19 07/18/19 07/19/19 06:59 06:59 06:59 Intake Total 2690 2540 Output Total 1500 1825 Balance 1190 715 Result Diagrams: 07/17/19 05:27 07/17/19 05:27 Additional Labs: Accuchecks 07/18/19 07/17/19 07/17/19 05:06 20:41 15:47 POC Glucose 129 H 137 H 125 H 07/17/19 07/17/19 13:12 11:56 POC Glucose 101 133 H Hospitalist ROS - Review of Systems Respiratory: denies: cough, dry, shortness of breath, hemoptysis, SOB with excertion, pleuritic pain, sputum, wheezing, other Cardiovascular: denies: chest pain, palpitations, orthopnea, paroxysmal noc. dyspnea, edema, light headedness, other - Medication Medications: Active Medications Generic Name Dose Route Start Last Admin Trade Name Freq PRN Reason Stop Dose Admin Hydrocodone Bitart/Acetaminophen 2 tab 07/16/19 07:18 07/18/19 05:04 [place] 10/325 PO 2 tab Q4H PRN Administration PAIN (4-6) Aspirin 81 mg 07/02/19 09:00 07/18/19 08:26 Ecotrin PO 81 mg DAILY DARRYN Administration Enoxaparin Sodium 80 mg 07/18/19 09:00 07/18/19 08:26 Lovenox SC 80 mg 0900,2100 DARRYN Administration Fentanyl 50 mcg 07/16/19 07:19 07/17/19 13:27 Sublimaze IV 50 mcg Q1H PRN Administration Breakthrough Pain Gabapentin 300 mg 07/05/19 09:00 07/18/19 08:27 Neurontin PO 300 mg TID DARRYN Administration Glipizide 5 mg 07/12/19 07:30 07/18/19 06:33 Glucotrol Xl PO 5 mg DAILY-AC DARRYN Administration Hydralazine HCl 10 mg 07/02/19 13:29 07/13/19 11:19 Apresoline SLOW IVP 10 mg Q4H PRN Administration Hypertension Hydralazine HCl 75 mg 07/12/19 15:00 07/18/19 08:27 Apresoline PO 75 mg TID DARRYN Administration Insulin Human Lispro 0 units 07/03/19 12:34 07/09/19 21:13 Humalog SC 2 unit .BEDTIME SLIDING SC PRN Administration Bedtime Correctional Scale Insulin Human Lispro 0 units 07/07/19 18:47 07/16/19 17:31 Humalog SC 3 unit .AGGRESSIVE SLIDING PRN Administration Aggressive Correctional Scale Insulin Human NPH 20 unit 07/07/19 08:00 07/18/19 08:25 Humulin N SC 20 units 0800 DARRYN Administration Insulin Human NPH 15 unit 07/07/19 21:00 07/17/19 22:17 Humulin N SC 15 unit HS DARRYN Administration Metoprolol Tartrate 50 mg 07/12/19 21:00 07/18/19 08:27 Lopressor PO 50 mg BID DARRYN Administration Morphine Sulfate 4 mg 07/12/19 18:42 07/18/19 08:34 Morphine SLOW IVP 4 mg Q4H PRN Administration .BREAKTHROUGH PAIN Nifedipine 120 mg 07/13/19 09:00 07/18/19 08:27 Procardia Xl PO 120 mg DAILY DARRYN Administration Ondansetron HCl 4 mg 07/02/19 18:11 07/17/19 13:04 Zofran IVP 4 mg Q6H PRN Administration Nausea/Vomiting Oxycodone/Acetaminophen 1 tab 07/12/19 16:53 07/15/19 20:23 Percocet 5/325 PO 1 tab Q4H PRN Administration Pain Pantoprazole Sodium 40 mg 07/05/19 09:00 07/18/19 08:28 Protonix PO 40 mg DAILY DARRYN Administration Pregabalin 150 mg 07/05/19 21:00 07/18/19 08:28 Lyrica PO 150 mg BID DARRYN Administration Ropinirole HCl 0.25 mg 07/16/19 09:00 07/18/19 08:28 Requip PO 0.25 mg TID DARRYN Administration Sodium Chloride 10 ml 07/04/19 21:00 07/18/19 08:36 Flush - Normal Saline IVF 10 ml Q12HR DARRYN Administration Sodium Chloride 10 ml 07/04/19 14:19 07/07/19 10:24 Flush - Normal Saline IVF 10 ml PRN PRN Administration Saline Flush Tramadol HCl 100 mg 07/16/19 07:18 07/17/19 22:15 Ultram PO 100 mg Q6H PRN Administration Moderate Pain 4-6 - Exam General Appearance: NAD Heart: RRR, no gallops Respiratory: CTAB, no rales Gastrointestinal: soft, non-tender, normal bowel sounds Extremities: no edema Hosp A/P - Plan DVT proph w/lovenox Diabetic foot infection s/p R BKA Acute appendicitis - resolved DM2 -better controlled BELKYS on CKD2 PVD HTN GERD h/o DVT - on Lovenox Mod PEM PLAN: Cont wound care Rehab eval pending Cont NPH and other meds Lisinopril on hold due to BELKYS AM labs Consult PT
[2019-07-18] MEDS ORDERED: Enoxaparin Sodium 80 MG/0.8 ML SYRINGE SC SCH (09:00)
[2019-07-18] MEDS ORDERED: Triple Antibiotic Oint 1 GM Packet TOP SCH (11:15)
[2019-07-18 15:56] VITALS: BP 154/73; TEMP 99.2
[2019-07-18] MEDS: traMADol HCl 50 MG TAB PO PRN (17:05)
[2019-07-18] MEDS ORDERED: NPH, Human Insulin Isophane 300 UNIT/3 ML VIAL SC SCH (21:00)
[2019-07-18] MEDS ORDERED: Apixaban 5 MG TAB PO SCH (21:00)
[2019-07-19] MEDS ORDERED: NPH, Human Insulin Isophane 300 UNIT/3 ML VIAL SC SCH (08:00)
[2019-07-19] MEDS ORDERED: Triple Antibiotic Oint 1 GM Packet TOP SCH (09:00)
--- NOTE | 2019-07-19 10:10 | PQF ---
[employer] ELISHA Sanchez FARIDEH GOINS MD [id number] SURG [id number] CLINICAL DOCUMENTATION CLARIFICATION FORM: POST DISCHARGE Addendum to original discharge summary date: ____ Late entry note date: __ /DATE: 07/19/2019 ATTN: FARIDEH GOINS MD Please exercise your independent, professional judgment in responding to the clarification form. Clinical indicators are provided on the bottom of this form for your review Please check appropriate box(s) to clarify if the following diagnosis has been ruled in or ruled out: Acute tubular necrosis [ ] Ruled in diagnosis [ ] Continue to treat [ ] Resolved [ ] Ruled out diagnosis [ ] Cannot rule out diagnosis [ ] Other diagnosis [ ] Unable to determine For continuity of documentation, please document condition throughout progress notes and discharge summary. Thank You. CLINICAL INDICATORS - SIGNS / SYMPTOMS / LABS - possible hemodynamically mediated in terms of potential intraoperative hypotension resulting in acute tubular necrosis- Consult report, 07/06, FARIDEH GOINS MD - Acute kidney injury, this is likely multifactorial-Concult report, 07/06- FARIDEH GOINS MD - Creatinine: 2.02H-07/16, 2.27H-07/10- Laboratory report - BELKYS on CKD2- Hospital PN, 07/17, Daniel Matamoros MD RISK FACTORS - Diabetic foot infection-s/p R BKA- Hospital PN, 07/17, Daniel Matamoros MD - Acute appendicitis-Hospital PN, 07/17, Daniel Matamoros MD - Hypertension-Hospital PN, 07/17, Daniel Matamoros MD TREATMENTS -Sodium chloride.IV-MAR, 07/11 (This form is maintained as a part of the permanent medical record) 2014 [employer]. All Rights Reserved Jerry Paz [not provided] [not provided] MTDD
--- NOTE | 2019-07-20 10:27 | DIS ---
DATE OF ADMISSION: 07/01/2019 DATE OF DISCHARGE: 07/18/2019 DISCHARGE DISPOSITION: Inpatient rehab. FOLLOWUP: Follow up with primary care physician in 1 week. DISCHARGE MEDICATIONS: 1. ProAir inhaler as needed. 2. Lipitor 40 mg at bedtime. 3. Eliquis 5 mg b.i.d. 4. Aspirin 81 mg daily. 5. Hydralazine 75 mg 3 times daily. 6. [place] as needed. 7. Lopressor 50 mg b.i.d. 8. Triple antibiotic as needed. 9. Procardia XL 120 mg daily. 10. NPH insulin 15 units in the morning and 10 units at night. 11. Protonix 40 mg daily. 12. Lyrica 150 mg b.i.d. 13. Requip 0.25 mg 3 times daily. 14. Florastor 250 mg daily. 15. Tramadol as needed. INPATIENT CONSULTANTS: 1. Nephrology, Dr. Adams. 2. General Surgery, Dr. Stroud. 3. Podiatry, Dr. Sultana. 4. Cardiology, Dr. Keys. INPATIENT PROCEDURES: 1. Chest x-ray on admission was negative for infiltrate. 2. CT scan of the abdomen and pelvis on July 01 showed early acute appendicitis with tiny nonobstructing left renal calculus. 3. X-ray of the foot on admission showed soft tissue overlying the amputation site. 4. On July 02, 2019, the patient underwent Cardiolite stress test that was negative for reversible ischemia, ejection fraction was 42%. 5. On July 02, 2019, the patient underwent laparoscopic appendectomy by Dr. Storud. 6. On July 04, 2019, the patient underwent debridement of the right lower extremity wound by Dr. Heraclio Sultana. 7. On July 16, 2019, the patient underwent right below-knee amputation. BRIEF HOSPITAL COURSE: The patient is a 54-year-old male with peripheral vascular disease, diabetes mellitus type 2, hypertension and recent right foot osteomyelitis, status post partial amputation of the fifth digit, presented to the hospital with abdominal pain, nausea, and vomiting. Please refer to the history and physical for further details. The patient was admitted to the hospital with a diagnosis of acute appendicitis. After a negative stress test, he underwent laparoscopic appendectomy by Dr. Stroud. He was also evaluated by Podiatry for worsening right foot wound. He underwent debridement without much help. Subsequently, he underwent right below-knee amputation. He has been discharged to inpatient rehabilitation. He was also seen by Nephrology, Dr. Adams for acute kidney injury. His creatinine on admission was 1.3; at discharge is 1.7. Please refer to the various consultation notes for details. FINAL DIAGNOSES: 1. Abdominal pain with nausea and vomiting secondary to acute appendicitis, status post appendectomy. 2. Right foot diabetic infection, status post debridement with subsequent right below-knee amputation. 3. Acute kidney injury on chronic kidney disease, stage 2, suspected to be secondary to acute tubular necrosis. 4. Diabetes mellitus, type 2. 5. Peripheral vascular disease. 6. Hypertension. 7. History of deep venous thrombosis, on anticoagulation. 8. Moderate protein energy malnutrition. TIME SPENT WITH PATIENT: Total time coordinating the discharge of this patient was 38 minutes. Job ID: [id number]
== END 2019-07-18 19:23 | DRG 341 ==
LOC: ERS 12:17 → 2NO 17:11 → SURG A 07-06 18:28
PROVIDERS: ADMIT Internal Medicine; ATTEND Internal Medicine
PROC: 0DTJ4ZZ Resection of Appendix, Percutaneous Endoscopic Approach (ICD-10-PCS; principal; 2019-07-02)
PROC: 0QBN0ZZ Excision of Right Metatarsal, Open Approach (ICD-10-PCS; 2019-07-04)
PROC: 0Y6H0Z3 Detachment at Right Lower Leg, Low, Open Approach (ICD-10-PCS; 2019-07-16)
PROC: 30233N1 Transfusion of Nonautologous Red Blood Cells into Peripheral Vein, Percutaneous Approach (ICD-10-PCS; 2019-07-16)
DX: K35.80 Unspecified acute appendicitis (principal); N17.0 Acute kidney failure with tubular necrosis; E44.0 Moderate protein-calorie malnutrition; E11.52 Type 2 diabetes mellitus with diabetic peripheral angiopathy with gangrene; I96 Gangrene, not elsewhere classified; L03.115 Cellulitis of right lower limb; E11.628 Type 2 diabetes mellitus with other skin complications; G25.81 Restless legs syndrome; E78.5 Hyperlipidemia, unspecified; E11.65 Type 2 diabetes mellitus with hyperglycemia; M10.9 Gout, unspecified; I12.9 Hypertensive chronic kidney disease with stage 1 through stage 4 chronic kidney disease, or unspecified chronic kidney disease; E11.22 Type 2 diabetes mellitus with diabetic chronic kidney disease; K21.9 Gastro-esophageal reflux disease without esophagitis; E11.21 Type 2 diabetes mellitus with diabetic nephropathy; E11.51 Type 2 diabetes mellitus with diabetic peripheral angiopathy without gangrene; N18.3 Chronic kidney disease, stage 3 (moderate); I16.0 Hypertensive urgency; Z86.718 Personal history of other venous thrombosis and embolism; Z79.01 Long term (current) use of anticoagulants; Z89.421 Acquired absence of other right toe(s); Z87.442 Personal history of urinary calculi; Z91.81 History of falling; Z79.4 Long term (current) use of insulin; Z87.891 Personal history of nicotine dependence; Z68.21 Body mass index [BMI] 21.0-21.9, adult
CPT/HCPCS: 36415; 36416; 36430; 70450; 71045; 74177; 78452; 80048; 80053; 80306; 81003; 81015; 82550; 82553; 82565; 83605; 83690; 83735; 84484; 84703; 85014; 85018; 85025; 85049; 85610; 85730; 86850; 86900; 86901; 88304; 88307; 93005; 93010; 93017; 93306; 96361; 96365; 96372; 96375; 96376; A4306; A9500; C9113; J0360; J0670; J1170; J1650; J1815; J2001; J2250; J2270; J2310; J2405; J2543; J2704; J2785; J2795; J3010; J3490; L8440; P9016; Q9966

== ENCOUNTER 2020-04-14 15:15 | Emergency (ER) | payer BC ==
[~2020-04-14 15:15] MED LIST: Iopamidol-370 76% 500 ML 1 ML ONE
[2020-04-14 15:52] LABS: #Basophils 0.1 thou/uL (0.0-0.2); #Eosinphils 0.2 thou/uL (0.0-0.7); #Monocytes 0.5 thou/uL (0.11-0.59); #Neutrophils 5.2 thou/uL (1.40-6.50); %Basophils 1.2 % (0.0-1.0); %Lymphocytes 24.9 % (21.0-51.0); %Neutrophils 65.9 % (42.0-75.0); Hemoglobin 14.9 g/dL (14.0-18.0); Mean Corpuscular HGB CONC 34.6 g/dL (32.0-36.0); Mean Corpuscular Hemoglobin 31.4 pg (27.0-31.0); Mean Corpuscular Volume 90.7 fL (78.0-98.0); Mean Platelet Volume 7.9 fL (7.4-10.4); Platelet Count 236 thou/uL (130-400); RBC Distribution Width 12.4 % (11.5-14.5); Red Blood Cell (RBC) Count 4.74 mill/uL (4.70-6.10); White Blood Cell (WBC) Count 7.9 thou/uL (4.8-10.8)
[2020-04-14 16:15] LABS: ALT (SGPT) 16 U/L (8-55); AST (SGOT) 16 U/L (5-34); Albumin 3.1 g/dL (3.5-5.0); Alkaline Phosphatase 121 U/L (40-110); Anion Gap 11 mmol/L (10-20); BUN (Urea Nitrogen) 30 mg/dL (8.4-25.7); Bilirubin, Total 0.3 mg/dL (0.2-1.2); Calc. Creatinine Clearance 0 mL/min (70-130); Calcium 8.4 mg/dL (7.8-10.44); Carbon Dioxide 23 mmol/L (22-29); Chloride 101 mmol/L (98-107); Estimated GFR-MDRD 43; Globulin 3.3 g/dL (2.4-3.5); Glucose 369 mg/dL (70-105); Lipase 42 U/L (8-78); Potassium 4.4 mmol/L (3.5-5.1); Protein, Total 6.4 g/dL (6.0-8.3); Sodium 131 mmol/L (136-145)
[2020-04-14 18:33] LABS: Bacteria/HPF None Seen HPF (None Seen); Bilirubin Negative (Negative); Blood, Urine 1+ (Negative); Clarity Clear (Clear); Glucose, Urine (Dipstick) Greater than 1000 mg/dL (Negative); Ketone, Urine Negative (Negative); Leukocyte Negative Leu/uL (Negative); Nitrite Negative (Negative); Protein, Urine (Dipstick) 300 mg/dL (Neg-Trace); Specific Gravity, Urine 1.023 (1.002-1.036); Squamous Epithelial None Seen HPF (0-3); Urobilinogen Normal mg/dL (Less than 2); WBC/HPF 0-3 HPF (0-3)
--- NOTE | 2020-04-14 21:15 | CT ---
CT ABDOMEN AND PELVIS WITH IV CONTRAST: Indications: Right abdominal pain. History of appendectomy and cholecystectomy. Comparison: CT abdomen, 07-01-19 FINDINGS: Lung bases clear. Liver, spleen, and pancreas unremarkable. Post cholecystectomy change. Stomach unremarkable. Adrenal glands and kidneys unremarkable. Urinary bladder mildly distended and unremarkable in appeara nce. Review of the small bowel loops show nonspecific distention of jejunal loops. The ilial loops appear unremarkable. Nonspecific mural thickening also noted in the jejunal loops. No evidence of small [place] l obstruction. Stool throughout the colon. Review of the osseous structures show degenerative changes in the lumbar spine. There is a Grade I an terolisthesis of L5-S1 with a posterior spondylolysis at this level. Degenerative disc changes. IMPRESSION: 1. Nonspecific distention and mural thickening of jejunum. This could represent nonspecific enteritis . 2. Degenerative changes in the spine with findings at the L5-S1 as described. POS: LELIA
== END 2020-04-14 22:30 | disposition home or self-care (01) ==
LOC: ERS 15:15
DX: K52.9 Noninfective gastroenteritis and colitis, unspecified (principal); I10 Essential (primary) hypertension; E11.9 Type 2 diabetes mellitus without complications; N28.9 Disorder of kidney and ureter, unspecified; F17.210 Nicotine dependence, cigarettes, uncomplicated; Z79.4 Long term (current) use of insulin; Z79.899 Other long term (current) drug therapy
CPT/HCPCS: 36415; 74177; 80053; 81003; 81015; 83690; 85025; 96360; 96372; J0500; Q9967

== ENCOUNTER 2020-10-06 09:12 | Emergency (ER) | payer BC ==
[2020-10-06] MEDS ORDERED: HYDROcodone/Acetaminophen 10/325 mg Tablet ONE (11:05)
--- NOTE | 2020-10-06 11:36 | ULT ---
EXAM: Left lower extremity venous Doppler HISTORY: Left lower extremity pain. FINDINGS: Grayscale, color-flow, Doppler evaluation, spectral analysis of the left lower extremity venous struc tures is performed with 2-D imaging. The left common femoral, superficial femoral, popliteal, posterior tibial, proximal greater saphenous and profunda femoral veins are imaged. There is normal luminal compressibility, flow, and augmentation in the visualized deep venous structu res of the left lower extremity. However, real-time imaging demonstrates extremely sluggish flow in the left lower extremity venous structures. Mildly prominent lymph node is seen in the left inguinal region measuring 3 cm x 2.1 cm x 0.8 cm. A f atty hilum is present within this lymph node. IMPRESSION: No evidence of a deep vein thrombosis in the visualized deep venous structures left lower extremity. However, there is extremely sluggish flow within the left lower extremity deep venous structures which may possibly increase risk of subsequent development of lower extremity DVT.
[2020-10-06 11:49] LABS: #Lymphocytes 1.4 thou/uL (1.20-3.40); #Monocytes 0.8 thou/uL (0.11-0.59); #Neutrophils 6.7 thou/uL (1.40-6.50); %Basophils 0.1 % (0.0-1.0); %Eosinophils 0.1 % (0.0-10.0); %Lymphocytes 15.2 % (21.0-51.0); %Monocytes 9.2 % (0.0-10.0); %Neutrophils 75.5 % (42.0-75.0); Hemoglobin 13.9 g/dL (14.0-18.0); Mean Corpuscular Hemoglobin 29.4 pg (27.0-31.0); Mean Corpuscular Volume 91.9 fL (78.0-98.0); Mean Platelet Volume 7.8 fL (7.4-10.4); Platelet Count 240 thou/uL (130-400); RBC Distribution Width 12.7 % (11.5-14.5); Red Blood Cell (RBC) Count 4.74 mill/uL (4.70-6.10); White Blood Cell (WBC) Count 8.9 thou/uL (4.8-10.8)
[2020-10-06 11:55] LABS: PTT 39.4 sec (22.9-36.1)
[2020-10-06 11:56] LABS: INR-International Normal Ratio 1.1; Prothrombin Time 14.8 sec (12.0-14.7)
[2020-10-06 12:09] LABS: CRP (Inflammatory) 8.99 mg/dL (= or < 0.5)
[2020-10-06 12:11] LABS: ALT (SGPT) 15 U/L (8-55); AST (SGOT) 17 U/L (5-34); Albumin 2.5 g/dL (3.5-5.0); Alkaline Phosphatase 155 U/L (40-110); Anion Gap 13 mmol/L (10-20); BUN (Urea Nitrogen) 33 mg/dL (8.4-25.7); Bilirubin, Total 0.3 mg/dL (0.2-1.2); Calc. Creatinine Clearance 0 mL/min (70-130); Calcium 8.4 mg/dL (7.8-10.44); Carbon Dioxide 27 mmol/L (22-29); Chloride 101 mmol/L (98-107); Globulin 4.1 g/dL (2.4-3.5); Glucose 258 mg/dL (70-105); Potassium 4.5 mmol/L (3.5-5.1); Protein, Total 6.6 g/dL (6.0-8.3); Sodium 136 mmol/L (136-145)
[2020-10-06] MEDS ORDERED: Bacitracin 1 PK ONE (12:34)
== END 2020-10-06 12:23 | disposition home or self-care (01) ==
LOC: ERS 09:12
DX: I73.9 Peripheral vascular disease, unspecified (principal); L03.116 Cellulitis of left lower limb; I10 Essential (primary) hypertension; E11.9 Type 2 diabetes mellitus without complications; Z86.718 Personal history of other venous thrombosis and embolism; F17.210 Nicotine dependence, cigarettes, uncomplicated; Z79.4 Long term (current) use of insulin; Z79.899 Other long term (current) drug therapy
CPT/HCPCS: 36415; 80053; 82550; 85025; 85610; 85730; 86140

== ENCOUNTER 2020-10-09 18:20 | Inpatient (IN) | payer BC ==
[2020-10-09] MEDS ORDERED: Labetalol HCl 100 MG/20 ML VIAL SLOW IVP PRN (19:20)
[2020-10-09] MEDS ORDERED: Dextrose 50% Abboject 50 ML SYRINGE SLOW IVP PRN (19:20)
[2020-10-09] MEDS ORDERED: Dextrose 5% in Water 1,000 ML IV PRN (19:20)
[2020-10-09] MEDS ORDERED: HumaLOG 300 UNITS/3 ML VIAL SC PRN (19:20)
[2020-10-09] MEDS ORDERED: hydrALAZINE 20 MG/ML VIAL SLOW IVP PRN (19:20)
[2020-10-09] MEDS ORDERED: Acetaminophen 325 MG TAB PO PRN (19:20)
[2020-10-09] MEDS ORDERED: Sodium Chloride 0.9% 1,000 ML IV SCH (19:30)
[2020-10-09] MEDS ORDERED: HYDROcodone/Acetaminophen 10/325 mg Tablet PO PRN (19:40)
[2020-10-09] MEDS ORDERED: Nicotine 14 MG PATCH TD SCH (20:00)
[2020-10-09] MEDS ORDERED: Vancomycin 1.5 GRAM/300 ML BAG 1.5 GM in Premix Bag 1 BAG IVPB SCH (20:15)
[2020-10-09] MEDS: Morphine 2 MG/ML VIAL SLOW IVP PRN (20:16)
[2020-10-09] MEDS: Piperacillin/Tazobactam 2.25 GM in Sodium Chloride 0.9% 100 ML IVPB SCH (20:17)
[2020-10-09] MEDS: Carvedilol 6.25 MG TAB PO SCH (20:18)
[2020-10-09 20:23] LABS: #Eosinphils 0.1 thou/uL (0.0-0.7); #Lymphocytes 1.4 thou/uL (1.20-3.40); #Monocytes 0.9 thou/uL (0.11-0.59); #Neutrophils 8.2 thou/uL (1.40-6.50); %Basophils 0.1 % (0.0-1.0); %Eosinophils 0.6 % (0.0-10.0); %Lymphocytes 13.4 % (21.0-51.0); %Monocytes 8.7 % (0.0-10.0); %Neutrophils 77.2 % (42.0-75.0); Hemoglobin 13.3 g/dL (14.0-18.0); Mean Corpuscular HGB CONC 34.3 g/dL (32.0-36.0); Mean Corpuscular Volume 90.3 fL (78.0-98.0); Mean Platelet Volume 7.4 fL (7.4-10.4); Platelet Count 287 thou/uL (130-400); RBC Distribution Width 12.4 % (11.5-14.5); Red Blood Cell (RBC) Count 4.28 mill/uL (4.70-6.10); White Blood Cell (WBC) Count 10.7 thou/uL (4.8-10.8)
[2020-10-09 20:35] LABS: INR-International Normal Ratio 1.1; PTT 45.3 sec (22.9-36.1); Prothrombin Time 14.6 sec (12.0-14.7)
[2020-10-09 20:45] VITALS: BMI 25.6
[2020-10-09 20:45] LABS: ALT (SGPT) 12 U/L (8-55); AST (SGOT) 16 U/L (5-34); Albumin 2.4 g/dL (3.5-5.0); Alkaline Phosphatase 154 U/L (40-110); Anion Gap 13 mmol/L (10-20); BUN (Urea Nitrogen) 34 mg/dL (8.4-25.7); Bilirubin, Total 0.2 mg/dL (0.2-1.2); Calc. Creatinine Clearance 0 mL/min (70-130); Calcium 8.6 mg/dL (7.8-10.44); Carbon Dioxide 29 mmol/L (22-29); Chloride 96 mmol/L (98-107); Globulin 4.1 g/dL (2.4-3.5); Glucose 253 mg/dL (70-105); Potassium 4.8 mmol/L (3.5-5.1); Protein, Total 6.5 g/dL (6.0-8.3); Sodium 133 mmol/L (136-145)
[2020-10-09] MEDS ORDERED: hydrALAZINE 25 MG TAB PO SCH (21:00)
[2020-10-09] MEDS ORDERED: Amlodipine 10 MG TAB PO SCH (21:00)
[2020-10-09] MEDS ORDERED: Metoprolol Tartrate 50 MG TAB PO SCH (21:00)
[2020-10-09] MEDS: HYDROcodone/Acetaminophen 10/325 mg Tablet PO PRN (21:26)
[2020-10-09] MEDS: HumaLOG 300 UNITS/3 ML VIAL SC PRN (21:27)
[2020-10-09] MEDS ORDERED: Gabapentin 300 MG CAP PO SCH (22:00)
[2020-10-10] MEDS ORDERED: Calcium Carbonate 500 MG ChewTAB PO PRN (00:01)
[2020-10-10] MEDS: Morphine 2 MG/ML VIAL SLOW IVP PRN ×2 (00:15→05:23)
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
[2020-10-10 05:21] LABS: SARS-CoV-2 MS2 Positive; SARS-CoV-2 N Gene Negative; SARS-CoV-2 S Gene Negative; SARS-CoV-2 by NAA Not Detected (NotDetected); SARS-CoV-2 orf1ab Negative
[2020-10-10] MEDS: Piperacillin/Tazobactam 2.25 GM in Sodium Chloride 0.9% 100 ML IVPB SCH (05:24)
[2020-10-10 05:40] LABS: #Basophils 0.1 thou/uL (0.0-0.2); #Eosinphils 0.2 thou/uL (0.0-0.7); #Neutrophils 5.9 thou/uL (1.40-6.50); %Basophils 0.7 % (0.0-1.0); %Eosinophils 1.7 % (0.0-10.0); %Lymphocytes 21.7 % (21.0-51.0); %Neutrophils 64.9 % (42.0-75.0); Hemoglobin 10.7 g/dL (14.0-18.0); Mean Corpuscular HGB CONC 32.7 g/dL (32.0-36.0); Mean Corpuscular Hemoglobin 30.1 pg (27.0-31.0); Mean Corpuscular Volume 92.1 fL (78.0-98.0); Mean Platelet Volume 7.4 fL (7.4-10.4); Platelet Count 239 thou/uL (130-400); RBC Distribution Width 12.4 % (11.5-14.5); Red Blood Cell (RBC) Count 3.56 mill/uL (4.70-6.10)
[2020-10-10] MEDS: HumaLOG 300 UNITS/3 ML VIAL SC PRN (05:42)
[2020-10-10 05:56] LABS: Anion Gap 11 mmol/L (10-20); BUN (Urea Nitrogen) 35 mg/dL (8.4-25.7); Calc. Creatinine Clearance 44 mL/min (70-130); Calcium 7.8 mg/dL (7.8-10.44); Carbon Dioxide 25 mmol/L (22-29); Chloride 101 mmol/L (98-107); Glucose 248 mg/dL (70-105); Potassium 4.2 mmol/L (3.5-5.1); Sodium 133 mmol/L (136-145)
[2020-10-10] MEDS ORDERED: Gabapentin 300 MG CAP PO SCH (09:00)
[2020-10-10] MEDS ORDERED: NIFEdipine XL 60 MG TAB PO SCH (09:00)
[2020-10-10] MEDS ORDERED: Methocarbamol 500 MG TAB PO SCH (09:00)
[2020-10-10] MEDS ORDERED: Lisinopril 20 MG TAB PO SCH (09:00)
[2020-10-10] MEDS: Carvedilol 6.25 MG TAB PO SCH (09:52)
[2020-10-10 12:02] VITALS: BP 180/82; TEMP 98.5
[2020-10-10] MEDS: HYDROcodone/Acetaminophen 10/325 mg Tablet PO PRN (12:51)
--- NOTE | 2020-10-10 17:50 | DIS ---
DATE OF ADMISSION: 10/09/2020 DATE OF DISCHARGE: 10/10/2020 DISCHARGE DISPOSITION: To home. PRIMARY DISCHARGE DIAGNOSIS: Peripheral vascular disease with rest pain in the left lower extremity. SECONDARY DISCHARGE DIAGNOSES: History of right below-knee amputation due to peripheral vascular disease, tobacco abuse, diabetes mellitus type 2, hypertension, chronic kidney disease stage 3, history of deep venous thrombosis. PROCEDURES DONE DURING HOSPITALIZATION: The patient has had left lower extremity venous Doppler done, which did not reveal DVT. H and H 10 and 32, platelet count 239. PTT 45, PT 14. BUN 35, creatinine 1.9, sodium 133, serum bicarb 25, serum glucose 248. Liver enzymes; AST and ALT within normal limits, alkaline phosphatase 154. CRP 8.9. CK levels 105. Albumin 2.4. COVID-19 PCR was not detected on 10/09/2020. DISCHARGE MEDICATIONS: 1. Carvedilol 12.5 mg twice daily. 2. Gabapentin 600 mg p.o. 3 times daily. 3. Lipitor 40 mg p.o. at bedtime. 4. Lisinopril 20 mg p.o. daily. 5. Methocarbamol 1000 mg p.o. 4 times daily. 6. Foster p.r.n. for pain. 7. Norvasc 10 mg p.o. q.p.m. 8. Novolin 70/30 25 units subcu twice daily. 9. Albuterol inhaler q.4 hourly p.r.n. 10. Reglan p.r.n. 11. Sildenafil citrate 100 mg p.o. daily p.r.n. 12. Eliquis 5 mg twice daily. ALLERGIES: NO KNOWN DRUG ALLERGIES. DISCHARGE PLAN: The patient is planning to pursue second opinion and possible surgery in [place]. He also needs to follow up with Dr. Green, his primary care physician in 1 to 2 weeks. BRIEF COURSE DURING HOSPITALIZATION: The patient initially was sent over from Dr. Strange's office for severe peripheral vascular disease with rest pain in the left lower extremity for possible amputation. He was kept n.p.o. for the procedure today, but the patient wanted a second opinion. He in fact had a surgeon in [place], whom he was in touch with. They plan on flying to [place] today and have a second opinion prior to having any amputation done. He has prior history of right BKA and wanted to save his leg. Dr. Strange was made aware of the situation. The patient is wanting to go home today. In view of his flight being scheduled this afternoon, he is being discharged. Please note, I have seen and examined the patient on the day of discharge. Job ID: [id number]
[2020-10-10] MEDS ORDERED: Vancomycin HCl 1.25 GM in Sodium Chloride 0.9% 250 ML 250 ML IVPB SCH (20:00)
[2020-10-10] MEDS ORDERED: Atorvastatin Calcium 40 MG TAB PO SCH (21:00)
[2020-10-10] MEDS ORDERED: FLU VACC QS2020-21(6MOS UP)/PF 60 MCG/0.5 ML SYRINGE IM ONE (21:00)
== END 2020-10-10 13:09 | disposition home or self-care (01) | DRG 300 ==
LOC: SURG A 18:20
PROVIDERS: ADMIT Internal Medicine; ATTEND Internal Medicine
DX: E11.51 Type 2 diabetes mellitus with diabetic peripheral angiopathy without gangrene (principal); E87.1 Hypo-osmolality and hyponatremia; Z20.822 Contact with and (suspected) exposure to COVID-19; I12.9 Hypertensive chronic kidney disease with stage 1 through stage 4 chronic kidney disease, or unspecified chronic kidney disease; N18.9 Chronic kidney disease, unspecified; G25.81 Restless legs syndrome; F17.210 Nicotine dependence, cigarettes, uncomplicated; Z90.49 Acquired absence of other specified parts of digestive tract; Z86.718 Personal history of other venous thrombosis and embolism; Z89.422 Acquired absence of other left toe(s); Z79.01 Long term (current) use of anticoagulants; Z79.4 Long term (current) use of insulin; Z79.899 Other long term (current) drug therapy
CPT/HCPCS: 36415; 36416; 80048; 80053; 82550; 85025; 85610; 85730; 86140; 87635; 93005; 93010; J2270; J2543; J3370; J3490; U0003